=== PATIENT | female | born 1955 | race Caucasian/White ===

== ENCOUNTER 2019-09-08 16:33 | Emergency (ER) | payer BC, OTHER ==
[2019-09-08] MEDS ORDERED: LEVALBUTEROL 1.25 MG/3 ML NEB ONE (17:23)
[2019-09-08 17:55] LABS: Absolute Lymphocytes (CBC) 2.1 K/uL (0.7-4.9); Basophils % 0.2 % (0-1.3); Hematocrit 33.8 % (36.0-45.0); Lymphocytes % 21.4 % (15.3-44.8); MPV 10.2 fL (7.6-11.3); RBC Red Blood Cell Count 3.69 M/uL (3.86-4.86)
[2019-09-08 17:59] LABS: Protime INR 0.95
--- NOTE | 2019-09-08 18:06 | RAD REPORT ---
EXAM DESCRIPTION: RAD - Chest Single View - 09/08/2019 5:58 pm CLINICAL HISTORY: CONGESTION Chest pain. COMPARISON: Chest Single View dated 11/24/2017; CHEST SINGLE VIEW dated 11/11/2014; CHEST SINGLE VIE W dated 11/10/2014 FINDINGS: Portable technique limits examination quality. The lungs are grossly clear. The heart is normal in size. No displaced fractures. IMPRESSION: No acute intrathoracic process suspected.
[2019-09-08 18:18] LABS: Bilirubin Direct 0.2 mg/dL (0-0.2); Bilirubin Total 0.6 mg/dL (0.2-1.0); CKMB Creatine Kinase MB 1.9 ng/mL (0.3-3.6); Magnesium 1.9 mg/dL (1.8-2.4); Potassium 3.3 mmol/L (3.5-5.1); Protein, Total 5.8 g/dL (6.4-8.2)
[2019-09-08 18:30] LABS: Blood Morphology Comment NOT SEEN (NOT SEEN); Platelet Estimate DECR; Urine White Blood Cell Casts OK
[2019-09-08] MEDS ORDERED: POTASSIUM CL SA 10 MEQ TAB PO ONE (18:42)
[2019-09-08] MEDS ORDERED: POTASSIUM 25 MEQ EFFERV TAB ONE (18:45)
--- NOTE | 2019-09-08 19:06 | ER ---
Nurse's Notes [facility] Name: Irena Jones Age: 64 yrs Sex: Female : 1955 Arrival Date: 09/08/2019 Time: 16:35 Bed 19 Private MD: Diagnosis: Shortness of breath Presentation: 09/08 10:14 Presenting complaint: Patient states: PERSISTENT COUGH AND LOSS OF APPETITE. Transition ss of care: patient was not received from another setting of care. Onset of symptoms is unknown. Risk Assessment: Do you want to hurt yourself or someone else? Patient reports no desire to harm self or others. Initial Sepsis Screen: Does the patient meet any 2 criteria? No. Patient's initial sepsis screen is negative. Does the patient have a suspected source of infection? No. Patient's initial sepsis screen is negative. Care prior to arrival: None. 10:14 Method Of Arrival: Ambulatory ss 10:14 Acuity: MARCELLUS 3 ss Historical: - Allergies: 16:48 PENICILLINS; ss - Home Meds: 16:48 venlafaxine 150 mg oral cp24 1 cap once daily [Active]; potassium chloride 8 mEq oral ss cpER 1 cap once daily [Active]; irbesartan 300 mg oral tab 1 tab once daily [Active]; aspirin 81 mg Oral chew once daily [Active]; - PMHx: 16:48 Hypertension; Pneumonia; ss - Immunization history:: Adult Immunizations up to date. - Social history:: Smoking status: Patient uses tobacco products, smokes one pack cigarettes per day. Patient/guardian denies using alcohol, street drugs, The patient lives with family. - Ebola Screening: : No symptoms or risks identified at this time. - Family history:: not pertinent. Screenin:15 Abuse screen: Denies threats or abuse. Denies injuries from another. Nutritional sg screening: No deficits noted. Tuberculosis screening: No symptoms or risk factors identified. Never had TB. Fall Risk None identified. Assessment: 17:15 General: Appears in no apparent distress. slender, well groomed, well developed, well sg nourished, Behavior is calm, cooperative, appropriate for age. Pain: Denies pain. Neuro: Level of Consciousness is awake, alert, obeys commands, Oriented to person, place, time, situation, Safety Council Director are equal bilaterally Moves all extremities. Full function Gait is steady, Speech is normal, Facial symmetry appears normal. Cardiovascular: Capillary refill is brisk in bilateral fingers Patient's skin is warm and dry. Chest pain is denied. Respiratory: Airway is patent Respiratory effort is even, unlabored, Respiratory pattern is regular, symmetrical. Respiratory: Reports pain with cough pain with respiration Breath sounds are coarse. GI: No signs and/or symptoms were reported involving the gastrointestinal system. : No signs and/or symptoms were reported regarding the genitourinary system. EENT: No signs and/or symptoms were reported regarding the EENT system. Derm: Skin is pink, warm \T\ dry. Musculoskeletal: Circulation, motion, and sensation intact. Range of motion: intact in all extremities. 19:31 Reassessment: Patient appears in no apparent distress at this time. No changes from previously documented assessment. Patient and/or family updated on plan of care and expected duration. Pain level reassessed. Patient is alert, oriented x 3, equal unlabored respirations, skin warm/dry/pink. Vital Signs: 16:48 BP 117 / 67; Pulse 94; Resp 18; Temp 98.4; Pulse Ox 99% ; Weight 54.43 kg; Height 5 ft. ss 5 in. (165.10 cm); 19:32 BP 116 / 66; Pulse 77; Resp 18; Temp 98; Pulse Ox 99% ; wh 16:48 Body Mass Index 19.97 (54.43 kg, 165.10 cm) ED Course: 16:35 Patient arrived in ED. as 16:48 Arm band placed on. 16:50 Triage completed. 16:50 Patient has correct armband on for positive identification. Placed in gown. Bed in low sg position. Call light in reach. Side rails up X2. hall monitor on. Pulse ox on. NIBP on. Warm blanket given. Head of bed elevated. 17:06 Mathew Marlow RN is Primary Nurse. sg 17:11 Dereck Chirinos MD is Attending Physician. ma2 17:15 Initial lab(s) drawn, by mo, sent to lab. First set of blood cultures drawn. Inserted sg saline lock: 22 gauge in right antecubital area, using aseptic technique. Blood collected. 17:30 Second set of blood cultures drawn by me. sg 17:43 EKG done, by medical laboratory technologist. reviewed by Dereck Chirinos MD. 3 17:58 XRAY CXR (1 view) In Process Unspecified. EDMS 18:56 Report given to Meena MONSIVAIS. 19:23 Meena Shen is Primary Nurse. 19:31 No provider procedures requiring assistance completed. IV discontinued, intact, bleeding controlled, No redness/swelling at site. Administered Medications: 17:41 Drug: Xopenex 1.25 mg Route: Inhalation; sg 19:34 Follow up: Response: No adverse reaction 18:50 Drug: Klor-Con Effervescent Tablet 25 mEq Route: PO; sg 19:34 Follow up: Response: No adverse reaction Outcome: 19:05 Discharge ordered by . shanel 19:32 Discharged to home ambulatory, with family. 19:32 Condition: good 19:32 Discharge instructions given to patient, family, Instructed on discharge instructions, follow up and referral plans. POC shortness of breath Demonstrated understanding of instructions, follow-up care, POC 19:35 Patient left the ED. Signatures: Dispatcher [employer] EDMS Mathew Marlow, RN RN Anna Darnell Shelby, LOI MONSIVAIS Meena Shen Dereck Chirinos MD MD ma2 Montes, Shakira 3 Corrections: (The following items were deleted from the chart) 19:34 19:32 Pulse 77bpm; Resp 18bpm; Pulse Ox 99%; Temp 98F; [facility]
--- NOTE | 2019-09-08 19:06 | EDPHYS ---
Physician Documentation [facility] Name: Irena Jones Age: 64 yrs Sex: Female : 1955 Arrival Date: 09/08/2019 Time: 16:35 Bed 19 Private MD: ED Physician Dereck Chirinos HPI: 09/08 18:30 This 64 yrs old Female presents to ER via Ambulatory with complaints of ma2 Bronchitis. 18:30 Onset: The symptoms/episode began/occurred gradually, 1 week(s) ago. Severity of ma2 symptoms: At their worst the symptoms were mild, in the emergency department the symptoms are unchanged. Associated signs and symptoms: Pertinent positives: sore throat, sob, this patient has no pertinent positive symptoms Pertinent negatives: diarrhea, nausea, sore throat. The patient has not experienced similar symptoms in the past. Historical: - Allergies: 16:48 PENICILLINS; ss - Home Meds: 16:48 venlafaxine 150 mg oral cp24 1 cap once daily [Active]; potassium chloride 8 mEq oral ss cpER 1 cap once daily [Active]; irbesartan 300 mg oral tab 1 tab once daily [Active]; aspirin 81 mg Oral chew once daily [Active]; - PMHx: 16:48 Hypertension; Pneumonia; ss - Immunization history:: Adult Immunizations up to date. - Social history:: Smoking status: Patient uses tobacco products, smokes one pack cigarettes per day. Patient/guardian denies using alcohol, street drugs, The patient lives with family. - Ebola Screening: : No symptoms or risks identified at this time. - Family history:: not pertinent. ROS: 18:30 Constitutional: Negative for fever, chills, and weight loss. ma2 18:30 All other systems are negative. Exam: 18:30 Constitutional: This is a well developed, well nourished patient who is awake, alert, ma2 and in no acute distress. Head/Face: Normocephalic, atraumatic. Eyes: Pupils equal round and reactive to light, extra-ocular motions intact. Lids and lashes normal. Conjunctiva and sclera are non-icteric and not injected. Cornea within normal limits. Periorbital areas with no swelling, redness, or edema. ENT: Nares patent. No nasal discharge, no septal abnormalities noted. Tympanic membranes are normal and external auditory canals are clear. Oropharynx with no redness, swelling, or masses, exudates, or evidence of obstruction, uvula midline. Mucous membranes moist. Neck: Trachea midline, no thyromegaly or masses palpated, and no cervical lymphadenopathy. Supple, full range of motion without nuchal rigidity, or vertebral point tenderness. No Meningismus. Chest/axilla: Normal chest wall appearance and motion. Nontender with no deformity. No lesions are appreciated. Cardiovascular: Regular rate and rhythm with a normal S1 and S2. No gallops, murmurs, or rubs. Normal PMI, no JVD. No pulse deficits. Respiratory: Lungs have equal breath sounds bilaterally, clear to auscultation and percussion. No rales, rhonchi or wheezes noted. No increased work of breathing, no retractions or nasal flaring. Abdomen/GI: Soft, non-tender, with normal bowel sounds. No distension or tympany. No guarding or rebound. No evidence of tenderness throughout. Skin: Warm, dry with normal turgor. Normal color with no rashes, no lesions, and no evidence of cellulitis. MS/ Extremity: Pulses equal, no cyanosis. Neurovascular intact. Full, normal range of motion. Neuro: Awake and alert, GCS 15, oriented to person, place, time, and situation. Cranial nerves II-XII grossly intact. Motor strength 5/5 in all extremities. Sensory grossly intact. Cerebellar exam normal. Normal gait. Vital Signs: 16:48 BP 117 / 67; Pulse 94; Resp 18; Temp 98.4; Pulse Ox 99% ; Weight 54.43 kg; Height 5 ft. ss 5 in. (165.10 cm); 19:32 BP 116 / 66; Pulse 77; Resp 18; Temp 98; Pulse Ox 99% ; wh 16:48 Body Mass Index 19.97 (54.43 kg, 165.10 cm) MDM: 17:11 Patient medically screened. [facility] 18:30 Differential Diagnosis: Bronchitis Influenza Upper Respiratory Infection Sinusitis ma2 Pharyngitis. 19:04 Data reviewed: vital signs, nurses notes. Counseling: I had a detailed discussion with ma2 the patient and/or guardian regarding: the historical points, exam findings, and any diagnostic results supporting the discharge/admit diagnosis, the presence of at least one elevated blood pressure reading (>120/80) during this emergency department visit, the need for outpatient follow up. ED course: she had 3 antibiotics courses, no infection could be copd, she needs pulmonary physician and will see one in 2 days . 09/08 17:12 Order name: Blood Culture Adult (2) dc2 09/08 17:12 Order name: BMP; Complete Time: 18:27 ma2 09/08 17:12 Order name: CBC with Diff ma2 09/08 17:12 Order name: Ckmb; Complete Time: 18:27 ma2 09/08 17:12 Order name: CPK; Complete Time: 18:27 ma2 09/08 17:12 Order name: D-Dimer; Complete Time: 18:13 ma2 09/08 17:12 Order name: Hepatic Function; Complete Time: 18:27 ma2 09/08 17:12 Order name: Lipase; Complete Time: 18:27 ma2 09/08 17:12 Order name: Magnesium; Complete Time: 18:27 dc2 09/08 17:12 Order name: NT PRO-BNP; Complete Time: 18:27 ma2 09/08 17:12 Order name: PT-INR; Complete Time: 18:13 ma2 09/08 17:12 Order name: Ptt, Activated; Complete Time: 18:13 ma2 09/08 17:12 Order name: Troponin (emerg Dept Use Only); Complete Time: 18:13 ma2 09/08 18:30 Order name: CBC Smear Scan; Complete Time: 18:32 EDMS 09/08 17:12 Order name: XRAY CXR (1 view); Complete Time: 18:13 ma2 09/08 17:12 Order name: EKG; Complete Time: 17:13 ma2 09/08 17:12 Order name: Cardiac monitoring; Complete Time: 17:19 ma2 09/08 17:12 Order name: EKG - Nurse/Tech; Complete Time: 17:41 ma2 09/08 17:12 Order name: IV Saline Lock; Complete Time: 17:19 ma2 09/08 17:12 Order name: Labs collected and sent; Complete Time: 17:18 ma2 09/08 17:12 Order name: O2 Per Protocol; Complete Time: 17:19 ma2 09/08 17:12 Order name: O2 Sat Monitoring; Complete Time: 17:19 ma2 Administered Medications: 17:41 Drug: Xopenex 1.25 mg Route: Inhalation; sg 19:34 Follow up: Response: No adverse reaction 18:50 Drug: Klor-Con Effervescent Tablet 25 mEq Route: PO; sg 19:34 Follow up: Response: No adverse reaction Disposition: 09/08/19 19:05 Discharged to Home. Impression: Shortness of breath. - Condition is Stable. - Discharge Instructions: Shortness of Breath, Zeoc-[id number]. - Medication Reconciliation Form, Thank You Letter, Antibiotic Education, Prescription Opioid Use form. - Follow up: Private Physician; When: Tomorrow; Reason: Continuance of care. Signatures: Dispatcher [employer] EDMathew Velazquez RN RN sg Smirch, Shelby, RN RN ss Habalo, Winsy Taran, MD ELLIE Harden ma2 Corrections: (The following items were deleted from the chart) 19:35 19:05 09/08/2019 19:05 Discharged to Home. Impression: Shortness of breath. Condition wh is Stable. Forms are Medication Reconciliation Form, Thank You Letter, Antibiotic Education, Prescription Opioid Use. Follow up: Private Physician; When: Tomorrow; Reason: Continuance of care. ma2
[2019-09-08 19:48] VITALS: O2SAT 99
[2019-09-08 19:49] VITALS: BP 116/66; TEMP 98
--- NOTE | 2019-09-09 05:31 | EKG ---
Test Date: 2019-09-08 Test Time: 17:31:55 Head Of It: JAMAL MEASUREMENT RESULTS: Intervals: Rate: 79 VT: 144 QRSD: 72 QT: 394 QTc: 451 Parmele: P: 69 VT: 144 QRS: 47 T: 70 INTERPRETIVE STATEMENTS: Normal sinus rhythm Nonspecific ST abnormality Abnormal ECG Compared to ECG 09/10/2018 12:17:50 ST (T wave) deviation now present Electronically Signed On 09-09-19 05:31:19 CDT by Oscar Hardin
== END 2019-09-08 19:35 | disposition home or self-care (01) ==
LOC: ER 16:33
DX: R06.02 Shortness of breath (principal); F17.210 Nicotine dependence, cigarettes, uncomplicated; Z88.0 Allergy status to penicillin
CPT/HCPCS: 36415; 71045; 80048; 80076; 82550; 82553; 83690; 83735; 83880; 84484; 85025; 85379; 85610; 85730; 87040; 93005; 99285

== ENCOUNTER 2021-03-22 19:12 | Emergency (ER) | payer OTHER, SELFPAY ==
--- OUTSIDE RECORDS SUMMARY | 2021-03-22 19:14 | XMS REPORT | Continuity of Care Document ---
:1955 Author Organization [facility] t Address [address] [place] [address] Care Team Providers Name Role Phone Virgilio Perkins MD Primary Care Physician Carline ARGUETA, Eric Attending Clinician Valerie ARGUETA, P. Attending Clinician Brianda ARGUETA, A. Attending Clinician Makeda ARGUETA, A. Attending Clinician DR BRODIE Attending Clinician Unavailable JANEEN Attending Clinician Unavailable RAS Attending Clinician Unavailable Moira PERKINS Attending Clinician Unavailable DR BRODIE Admitting Clinician Unavailable Moira PERKINS Admitting Clinician Unavailable Payers Payer Name Policy Type Policy Effective Date Expiration Date Sour ce Number AETNA MEDICAREAETNA [id number] 2019 [place] H[place]/PPO 0 00:00:00 Methodis t [id number]/ 2020-PresentHMO Problems Condition Condition Condition Status Onset Resolution Last Treating Co mments Source Name Details Category Date Date Treatment Clinician Date Contusion 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, of hip, HL7.CCDAR2 ity of left left [place] [facility] Hypertensi Hypertensi Problem Active U nivers on on HL7.CCDAR2 ity of [place] [facility] Allergies, Adverse Reactions, Alerts Allergy Allergy Status Severity Reaction(s) Onset Inactive Treating Comm ents Source Name Type Date Date Clinician Latex Propensi Active Skin Jimenez ty to 913 irritatio Methodi adverse 00:00: n st reaction 00 s to drug Other Propensi Active Adhesives [place] ty to 08-08 , tape Methodi adverse 00:00: st reaction 00 s Penicill Propensi Active hives [place] ins ty to 08-08 Methodi adverse 00:00: st reaction 00 s to drug Penicill drug Active Univers ins allergy [facility] Phys[facility] ans Family History Family Member Diagnosis Comments Start Date Stop Date Source Mother Adopted [facility] Father Adopted [facility] Social History Social Habit Start Date Stop Date Quantity Comments Source History of tobacco Cigarette Smoker [place] use Yarsanism Exposure to Not sure [place] SARS-CoV-2 (event) Method ist Cigarettes smoked 2021-03-22 2021-03-22 [place] current (pack per 00:00:00 00:00:[address] day) - Reported Tobacco use and 2021-03-22 2021-03-22 Never used [place] exposure 00:00:00 00:00:00 Yarsanism Alcohol intake 2021-03-22 2021-03-22 Ex-drinker [place] 00:00:00 00:00:00 (finding) Yarsanism Sex Ass[birth year] At [birth year] F [place] 00:00:00 00:00:00 Yarsanism Smoking Status Start Date Stop Date Source Current every day smoker 2021-03-22 00:00:00 Syed woody Yarsanism Medications Ordered Filled Start Stop Current Ordering Indication Dosage Frequency Signature Comments Components Source Medication Medication Date Date Medication? Clinician (SIG) Name Name losartan Yes TAKE 1 Tony (COZAAR) 4-16 TABLET Methodi 100 MG 00:00: (100 MG) st tablet 00 BY MOUTH DAILY meloxicam 2020- No 15mg QD Take 1 [place] (Mobic) 15 08-09 10-14 tablet (15 Me thodi mg tablet 00:00: 23:59 mg total) st 00 :00 by mouth daily for 30 days. methylPREDN 2020- No 4mg Take 1 Syed woody ISolone 08-09-19 tablet (4 Method i (MEDROL 00:00: 23:59 mg total) st DOSEPAK) 4 00 :00 by mouth mg tablet See Admin Instructio ns for 5 days. Use as directed by package instructio lani irbesartan Yes 300mg QD Take 300 [place] (AVAPRO) 7-13 mg by Methodi 300 MG 00:00: mouth st tablet 00 daily. KLOR-CON 8 Yes 8meq QD Take 8 mEq [place] 8 mEq CR 7-13 by mouth Methodi tablet 00:00: daily. st 00 venlafaxine Yes 150mg QD Take 150 [place] XR 7-13 mg by Methodi (EFFEXOR-XR 00:00: mouth st ) 150 MG 24 00 daily. hr capsule Klor-Con 8 Klor-Con 8 Yes Uni vers MEQ Oral MEQ Oral ity of Tablet Tablet [place] Extended Extended Physici Release Release ans Irbesartan Irbesartan Yes Uni vers 300 MG Oral 300 MG Oral i ty of Tablet Tablet [place] [facility] Venlafaxine Venlafaxine Yes U nivers HCl ER 150 HCl ER 150 ity of MG Oral MG Oral [place] Capsule Capsule Physici Extended Extended ans Release 24 Release 24 Hour Hour Aspirin 81 Aspirin 81 Yes Uni vers MG TABS MG TABS ity of [place] [facility] Immunizations Ordered Immunization Filled Immunization Date Status Commen ts Source Name Name Football Meister COVID-19 MRNA 2021-02-28 Completed [place] VACCINATION 00:00:00 Y[facility]an[place] PFIZER COVID-19 MRNA 2021-02-04 Completed [place] VACCINATION 00:00:00 Yarsanism Vital Signs Vital Name Observation Time Observation Value Comments Source Body height 2021-03-22 13:25:00 165.1 cm Tony Painter Body weight 2021-03-22 13:25:00 61.236 kg Tony Painter BMI 2021-03-22 13:25:00 22.47 kg/m2 Tony Painter BP Systolic 2018-04-03 14:00:00 107 mm[Hg] [facility] BP Diastolic 2018-04-03 14:00:00 60 mm[Hg] [facility] Height 2018-04-03 14:00:00 65 [in_us] [facility] Weight 2018-04-03 14:00:00 142 [lb_av] [facility] Body Mass Index 2018-04-03 14:00:00 23.63 kg/m2 [facility] Calculated Physicians Heart Rate 2018-04-03 14:00:00 67 /min [facility] BP Systolic 2018-02-27 15:54:00 122 mm[Hg] [facility] BP Diastolic 2018-02-27 15:54:00 64 mm[Hg] [facility] Height 2018-02-27 15:54:00 65 [in_us] [facility] Weight 2018-02-27 15:54:00 142 [lb_av] [facility] Body Mass Index 2018-02-27 15:54:00 23.63 kg/m2 [facility] Calculated Physicians Heart Rate 2018-02-27 15:54:00 82 /min [facility] Procedures Procedure Date / Time Performing Clinician Source Performed XR PELVIS 1 OR 2 VW 2020-08-09 15:11:32 Mike Shultz [U] XRAY HIP UNILATERAL 2018-02-19 00:00:00 [facility] MIN 2 VWS LEFT [id number] Physicians History of Hip [facility] xa replacement Physicians Plan of Care Planned Activity Planned Date Details Comments Source Future Scheduled 2021-06-26 INFLUENZA VACCINE [place] Y[facility]anism Test 00:00:00 [code = INFLUENZA VACCINE] Future Scheduled 2003 BREAST CANCER [facility] thodist Test 00:00:00 SCREENING [code = BREAST CANCER SCREENING] Future Scheduled 2003 COLONOSCOPY SCREENING Ho manpreet Yarsanism Test 00:00:00 [code = COLONOSCOPY SCREENING] Future Scheduled 2003 SHINGLES VACCINES (#1) H ouannalise Yarsanism Test 00:00:00 [code = SHINGLES VACCINES (#1)] Future Scheduled 1971 Hepatitis C screening [place] Yarsanism Test 00:00:00 (procedure) [code = 766530460] Future Scheduled 1959 65+ PNEUMOCOCCAL Tony Yarsanism Test 00:00:00 VACCINE (1 of 2 - PPSV23) [code = 65+ PNEUMOCOCCAL VACCINE (1 of 2 - PPSV23)] Encounters Start End Encounter Admission Attending Care Care Encounter Source Date/Time Date/Time Type Type Clinicians Facility Department ID 2021-03-22 2021-03-22 Outpatient [facility] [id number] [place] 00:00:00 00:00:[address] 2021-02-28 2021-02-28 Outpatient VALERIE [facility] [id number] [place] 00:00:00 00:00:00 [place] [address] 2021-02-04 2021-02-04 Outpatient [facility] [id number] [place] 00:00:00 00:00:[address] 2020-08-09 2020-08-09 Outpatient MIKE SHULTZ [facility] [id number] [place] 00:00:00 00:00:[address] 2020-08-09 2020-08-09 Outpatient MIKE SHULTZ [facility] [id number] [place] 00:00:00 00:00:[address] 2018-09-20 2018-09-20 Outpatient C BRODIE, [facility] [id number] [place] 04:27:00 06:40:00 [facility] 2018-03-21 2018-03-21 Appointmen DON VERNON [facility] [id number] Univers 14:00:00 14:00:00 t; KARISHMA VERNON M.D. [facility] [place] ans 2018-02-19 2018-02-19 Appointmen DON VERNON [facility] [id number] Univers 13:00:00 13:00:00 t; KARISHMA VERNON M.D. [facility], [facility] [place] ans 2016-08-23 2016-08-23 Appointmen DON MCGINNIS [facility] [id number] Univers 15:15:00 15:15:00 t; AGUSTIN MCGINNIS o f AGUSTIN [place] [facility] ans 2016-06-21 2016-06-21 Outpatient C LUDWIN, [facility] USI [place] [id number] [place] 09:51:00 23:59:00 [facility] Results Test Description Test Time Test Comments Results Result Sour e Comments [U] XRAY HIP 2018-02-19 Images University o f UNILATERAL MIN 2 13:33:00 acquired, not [place] [facility] LEFT [id number] reported on Physician s this accession number.
--- NOTE | 2021-03-22 19:31 | RAD REPORT ---
EXAM DESCRIPTION: CT - Ct Stroke Brain Wo Cont - 03/22/2021 7:22 pm CLINICAL HISTORY: Slurred speech COMPARISON: Previous exam was unavailable for comparison secondary to technical issues TECHNIQUE: Computed axial tomography of the head was obtained. All CT scans are performed using dose optimization technique as appropriate and may include automated exposure control or mA/KV adjustment according to patient size. FINDINGS: An intracranial bleed is not seen . The ventricles are normal in caliber. No extra-axial fluid collection is noted. Low-density areas within the right occipital and right parietal lobes have the appearance of old infa rction. Mild to moderate low-density within periventricular, deep and subcortical white matter likely ischemi c changes secondary to small vessel disease Fluid within the sinuses/ mastoids is not seen. IMPRESSION: No acute intracranial abnormality is seen. If patient's symptoms persist MRI of the bra in would be recommended. Dr Rojas of the emergency room was notified at 7:25 p.m. March 22, 2021
[2021-03-22 19:41] LABS: Absolute Lymphocytes (CBC) 2.6 K/uL (0.7-4.9); Basophils % 0.8 % (0-1.3); Hematocrit 33.1 % (36.0-45.0); Lymphocytes % 36.7 % (15.3-44.8); MPV 10.1 fL (7.6-11.3); RBC Red Blood Cell Count 3.61 M/uL (3.86-4.86)
[2021-03-22] MEDS ORDERED: ALTEPLASE 100 ML IV ONE (19:49)
[2021-03-22] MEDS ORDERED: NA CHLORIDE 0.9% 0 ML ONE (19:49)
[2021-03-22] MEDS ORDERED: LABETALOL 20 MG/4ML SYRINGE IV ONE (19:53)
[2021-03-22 19:57] LABS: BUN Blood Urea Nitrogen 11 mg/dL (7-18); Bicarbonate 27 mmol/L (21-32); Glucose Level 94 mg/dL (74-106); Magnesium 1.8 mg/dL (1.8-2.4); Potassium 3.8 mmol/L (3.5-5.1); Sodium Level 136 mmol/L (136-145); Troponin (Emerg Dept Use Only) < 0.02 ng/mL (0.0-0.045)
[2021-03-22 20:03] LABS: Protime INR 0.97
--- NOTE | 2021-03-22 20:19 | RAD REPORT ---
EXAM DESCRIPTION: Isra Single View03/22/2021 8:05 pm CLINICAL HISTORY: Weakness/hypertension COMPARISON: 2018 FINDINGS: Calcific density within the proximal left humerus probably infarct or enchondroma. Lungs appear clear of acute infiltrate. The heart is mildly enlarged. Aorta is tortuous/ectatic IMPRESSION: No acute abnormalities displayed
--- NOTE | 2021-03-22 20:37 | EDPHYS ---
Physician Documentation [facility] Name: Irena Jones Age: 65 yrs Sex: Female : 1955 Arrival Date: 03/22/2021 Time: 19:13 Bed 16 Private MD: ED Physician Daniel Rojas HPI: 03/22 19:17 This 65 yrs old Female presents to ER via Unassigned with complaints of right rn sided weakness, slurred speech. 19:17 The patient presents to the emergency department with weakness of the right upper rn extremity, right lower extremity, left side of the face, that is mild, a speech or higher order brain function problem. Onset: The symptoms/episode began/occurred 30 minute(s) ago. Context: occurred while the patient was at rest. Associated signs and symptoms: Pertinent positives: weakness, Pertinent negatives: altered mental status, fever, headache, neck stiffness, seizure, syncope, blurred vision, double vision, visual field changes, loss of vision. Severity of symptoms: At their worst the symptoms were moderate in the emergency department the symptoms are unchanged. Current symptoms: paralysis or paresis. The patient has not experienced similar symptoms in the past. The patient has not recently seen a physician. Reports sudden onset right sided weakness and slurred speech, began 30 min prior to arrival. No trauma. Reports feels like leaning towards left. Has never happened before, no hx of stroke. . Historical: - Allergies: 19:53 PENICILLINS; iw - Home Meds: 19:53 losartan 100 mg oral tab 1 tab once daily [Active]; venlafaxine 37.5 mg oral tab iw [Active]; - PMHx: 19:53 Hypertension; Pneumonia; iw - PSHx: 19:53 left hip; Appendectomy; iw - Immunization history:: Adult Immunizations up to date, Client reports receiving the 2nd dose of the Covid vaccine. - Social history:: Smoking status: Patient reports the use of cigarette tobacco products, smokes one pack cigarettes per day. - Family history:: not pertinent. - Hospitalizations: : No recent hospitalization is reported. ROS: 19:17 Constitutional: Negative for fever, chills, and weight loss, Eyes: Negative for injury, rn pain, redness, and discharge, Neck: Negative for injury, pain, and swelling, Cardiovascular: Negative for chest pain, palpitations, and edema, Respiratory: Negative for shortness of breath, cough, wheezing, and pleuritic chest pain, Abdomen/GI: Negative for abdominal pain, nausea, vomiting, diarrhea, and constipation, Back: Negative for injury and pain, MS/Extremity: Negative for injury and deformity, Skin: Negative for injury, rash, and discoloration, Neuro: + right sided weakness and slurred speech 19:17 All other systems are negative. Exam: 19:17 Constitutional: This is a well developed, well nourished patient who is awake, alert, rn and in no acute distress. Head/Face: Normocephalic, atraumatic. Eyes: Pupils equal round and reactive to light, extra-ocular motions intact. Cardiovascular: Regular rate and rhythm. No pulse deficits. Respiratory: No increased work of breathing, no retractions or nasal flaring. Abdomen/GI: soft, non-tender, no masses Skin: Warm, dry MS/ Extremity: Pulses equal, no cyanosis. Neuro: Awake and alert, GCS 15, oriented to person, place, time, and situation. + left lower facial droop, forehead sparing, + RUE and RLE weakness with drift, RUE weaker than RLE, + mild slurred speech. Gait not tested. Sensatin grossly intact. 20:11 ECG was reviewed by the Attending Physician. rn Vital Signs: 19:13 Temp 98.1(O); jb4 19:41 Weight 60 kg; iw 20:15 BP 160 / 86; Pulse 72; Resp 20; Pulse Ox 93% on R/A; mw2 21:15 BP 170 / 95; Pulse 73; Resp 21; Pulse Ox 94% on R/A; jb4 NIH Stroke Scale Scores: 19:15 NIHSS Score: 5 jb4 19:16 NIHSS Score: 5 rn MDM: 19:14 Patient medically screened. rn 19:25 ED course: Dr. Rasmussen reads ct head without acute findings. . rn 19:37 ED course: BP 195 systolic, 5mg labetalol IV given, BP down to 169 systolic prior to rn TPA being given. Pt consented and explained all risks/benefits, in room at the time as well. . 20:34 Data reviewed: vital signs, nurses notes, lab test result(s), EKG, radiologic studies, rn CT scan, and as a result, I will admit patient. Counseling: I had a detailed discussion with the patient and/or guardian regarding: the historical points, exam findings, and any diagnostic results supporting the discharge/admit diagnosis, lab results, radiology results, the need to transfer to another facility, for higher level of care, [facility] does not immediately have the required specialist. Response to treatment: There is no appreciated change of the patient's symptoms at this time, and as a result, I will admit patient. ED course: Accepted for transfer to [facility] neuro ICU. Actually just showed some improvement during TPA, moving RUE more now.. 03/22 19:16 Order name: Magnesium 03/22 19:16 Order name: Troponin (emerg Dept Use Only) 03/22 19:16 Order name: Basic Metabolic Panel 03/22 19:16 Order name: CBC with Diff; Complete Time: 20:28 03/22 19:16 Order name: Protime (+inr); Complete Time: 20: 03/22 19:16 Order name: Ptt, Activated; Complete Time: 20: 03/22 19:16 Order name: CT Stroke Brain w/o Contrast; Complete Time: 20: 03/22 19:16 Order name: Stroke CXR 1 View; Complete Time: 20: 03/22 19:16 Order name: Magnesium; Complete Time: 20:28 EDOR 03/22 19:16 Order name: Troponin (Emerg Dept Use Only); Complete Time: 20:28 [facility] 03/22 19:16 Order name: Basic Metabolic Panel; Complete Time: 20: [facility] 03/22 19:41 Order name: Glucose, Ancillary Testing; Complete Time: 20:28 [facility] 03/22 19:16 Order name: EKG; Complete Time: 19:16 03/22 19:16 Order name: Accucheck; Complete Time: 20:01 03/22 19:16 Order name: Cardiac monitoring; Complete Time: 19:41 03/22 19:16 Order name: EKG - Nurse/Tech; Complete Time: 19:42 03/22 19:16 Order name: IV Saline Lock; Complete Time: 19:42 03/22 19:16 Order name: Labs collected and sent; Complete Time: 19:42 rn 04/27 19:16 Order name: NPO; Complete Time: 19:42 rn 03/22 19:16 Order name: O2 Per Protocol; Complete Time: 19:42 rn 03/22 19:16 Order name: O2 Sat Monitoring; Complete Time: 19:42 rn 03/22 19:16 Order name: Stroke Swallow Screen; Complete Time: 20:27 rn EC:11 Rate is 83 beats/min. Rhythm is regular. QRS [place] is Normal. [place] interval is normal. QRS rn interval is normal. QT interval is normal. No Q waves. T waves are Normal. No ST changes noted. Clinical impression: NSR w/ Non-specific ST/T Changes. Interpreted by me. Reviewed by me. Administered Medications: 19:30 Drug: Labetalol 5 mg {Note: Administered by LOI Segovia.} Route: IVP; Site: left jb4 antecubital; 20:00 Follow up: Response: No adverse reaction; Blood pressure is lowered jb4 19:40 Drug: ACTIvase (alteplase) {Co-Signature: rr5 (Glenn Barrios RN).} Route: IV jb4 Thrombolytics; Rate: calculated rate; Infused Over: 60 mins; 20:40 Follow up: Response: No adverse reaction; Marked relief of symptoms jb4 20:40 Drug: foLIC Acid 1 mg Route: IVPB; Site: right forearm; jb4 21:10 Follow up: Response: No adverse reaction; IV Status: Completed infusion jb4 Disposition: 03/22/21 20:37 Transfer ordered to [facility]. Diagnosis are Weakness, Slurred speech, Cerebral infarction. - Reason for transfer: Higher level of care. - Accepting physician is . - Condition is Stable. - Problem is new. - Symptoms have improved. Critical care time excluding procedures: 20:34 Critical care time: Bedside Care: 25 minutes, Consultation: 5 minutes. Total time: 30 rn minutes NIH Stroke Scale - NIH Stroke Score Date: 03/22/2021 Time: 19:15 Total Score = 5 1a. Level of Consciousness (LOC) - 0(Alert) 1b. Level of Consciousness (LOC) (Year \T\ Age) - 0(Both) 1c. LOC Commands (Open \T\ Closes Eyes/Pipelaying Fitter) - 0(Both) 2. Best Gaze (Lateral Gaze Paresis) - 0(Normal) 3. Visual Field Loss - 0(No visual loss) 4. Facial Palsy - 2(Partial paralysis) 5a. Left Arm: Motor (10-second hold) - 0(No drift) 5b. Right Arm: Motor (10-second hold) - 1(Drift) 6a. Left Leg: Motor (5-second hold - always test supine) - 0(No drift) 6b. Right Leg: Motor (5-second hold - always test supine) - 1(Drift) 7. Limb Ataxia (finger/nose \T\ heel/mayfield - test with eyes open) - 0(Absent) 8. Sensory Loss (pinprick arms/legs/face) - 0(Normal) 9. Best Language: Aphasia (description/naming/reading) - 0(No aphasia) 10. Dysarthria (speech clarity - read or repeat words) - 1(Mild to Moderate) 11. Extinction and Inattention (visual/tactile/auditory/spatial/personal) - 0(No abnormality) Initials: jb4 NIH Stroke Scale - NIH Stroke Score Date: 03/22/2021 Time: 19:16 Total Score = 5 1a. Level of Consciousness (LOC) - 0(Alert) 1b. Level of Consciousness (LOC) (Year \T\ Age) - 0(Both) 1c. LOC Commands (Open \T\ Closes Eyes/Pipelaying Fitter) - 0(Both) 2. Best Gaze (Lateral Gaze Paresis) - 0(Normal) 3. Visual Field Loss - 0(No visual loss) 4. Facial Palsy - 2(Partial paralysis) 5a. Left Arm: Motor (10-second hold) - 0(No drift) 5b. Right Arm: Motor (10-second hold) - 1(Drift) 6a. Left Leg: Motor (5-second hold - always test supine) - 0(No drift) 6b. Right Leg: Motor (5-second hold - always test supine) - 1(Drift) 7. Limb Ataxia (finger/nose \T\ heel/mayfield - test with eyes open) - 0(Absent) 8. Sensory Loss (pinprick arms/legs/face) - 0(Normal) 9. Best Language: Aphasia (description/naming/reading) - 0(No aphasia) 10. Dysarthria (speech clarity - read or repeat words) - 1(Mild to Moderate) 11. Extinction and Inattention (visual/tactile/auditory/spatial/personal) - 0(No abnormality) Initials: rn Signatures: Dispatcher [employer] Juliette Mattson, LOI MONSIVAIS iw Daniel Rojas MD MD rn Bryson, James, RN RN jb4 Glenn Barrios RN rr5 Corrections: (The following items were deleted from the chart) 21:26 20:37 03/22/2021 20:37 Transfer ordered to [address] Diagnosis is Weakness; Slurred speech; Cerebral infarction. Reason for transfer: Higher level of care. Accepting physician is . Condition is Stable. Problem is new. Symptoms have improved. rn
--- NOTE | 2021-03-22 20:37 | ER ---
Nurse's Notes 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 Coronavirus screen: At this time, the client does not indicate any symptoms associated with coronavirus-19. Ebola Screen: Patient negative for fever greater than or equal to 101.5 degrees Fahrenheit, and additional compatible Ebola Virus Disease symptoms Patient denies exposure to infectious person. Patient denies travel to an Ebola-affected area in the 21 days before illness onset. No symptoms or risks identified at this time. Initial Sepsis Screen: Does the patient meet any 2 criteria? No. Patient's initial sepsis screen is negative. Does the patient have a suspected source of infection? No. Patient's initial sepsis screen is negative. Risk Assessment: Do you want to hurt yourself or someone else? Patient reports no desire to harm self or others. Onset of symptoms was March 22, 2021 at 18:30. 19:20 Method Of Arrival: Wheelchair iw 19:35 Acuity: MARCELLUS 2 iw Historical: - Allergies: 19:53 PENICILLINS; iw - Home Meds: 19:53 losartan 100 mg oral tab 1 tab once daily [Active]; venlafaxine 37.5 mg oral tab iw [Active]; - PMHx: 19:53 Hypertension; Pneumonia; iw - PSHx: 19:53 left hip; Appendectomy; iw - Immunization history:: Adult Immunizations up to date, Client reports receiving the 2nd dose of the Covid vaccine. - Social history:: Smoking status: Patient reports the use of cigarette tobacco products, smokes one pack cigarettes per day. - Family history:: not pertinent. - Hospitalizations: : No recent hospitalization is reported. Screenin:13 Abuse screen: Denies threats or abuse. Nutritional screening: No deficits noted. jb4 Tuberculosis screening: No symptoms or risk factors identified. Fall Risk None identified. Assessment: 19:13 General: Appears distressed, comfortable, Behavior is calm, cooperative. Pain: Denies jb4 pain. Neuro: Level of Consciousness is awake, alert, obeys commands, Oriented to person, place, time, situation, Wet Pan Operator are equal bilaterally Weakness in right arm(s) leg(s) Gait is unsteady, Speech is slurred, Facial droop on left, Pupils are PERRLA, Intact. Cardiovascular: Patient's skin is warm and dry. Rhythm is sinus rhythm. Respiratory: Airway is patent Respiratory effort is even, unlabored, Respiratory pattern is regular, symmetrical. GI: No signs and/or symptoms were reported involving the gastrointestinal system. : No signs and/or symptoms were reported regarding the genitourinary system. EENT: No signs and/or symptoms were reported regarding the EENT system. Derm: Skin is intact, Skin is pink, warm \T\ dry. Musculoskeletal: Circulation, motion, and sensation intact. Range of motion: intact in right arm, right leg. 19:20 Reassessment: Pt to Ct. jb4 19:25 T-PA (Activase) Screening: Indications: Definite evidence of stroke, ischemic, embolic, jb4 or hypertensive: Yes. Treatment will start within 4.5 hours onset of symptoms: Yes. No evidence of intracranial hemorrhage or CT of head and no evidence of peripheral hemorrhage or recent CVA: Yes. Consent for thrombolytic therapy: Yes. 20:00 The patient has not been NPO before screening. The patient is alert, and able to follow jb4 commands. The patient exhibits slurred or garbled speech. The patient is not exhibiting difficulty speaking. The patient does not exhibit difficulty understanding words. The patient is able to swallow own secretions with no drooling or need for suction. Patient tolerated one teaspoon of water. No drooling, immediate coughing, gurgling, or clearing of the throat was noted. The patient tolerated 90mL of water. No drooling, immediate coughing, gurgling, or clearing of the throat was noted. The patient passed the bedside swallow screening. Oral medications may be given as ordered. Contact Physician for further diet orders. Provider notified of bedside swallow screening results: Daniel Rojas MD. 20:25 Reassessment: Patient and/or family updated on plan of care and expected duration. Pain jb4 level reassessed. Patient is alert, oriented x 3, equal unlabored respirations, skin warm/dry/pink. Pt remains weak on the right side. The right arm is noticeably weaker then it was upon arrival. Provider notified. 21:22 Reassessment: Patient appears in no apparent distress at this time. Patient and/or jb4 family updated on plan of care and expected duration. Pain level reassessed. Patient is alert, oriented x 3, equal unlabored respirations, skin warm/dry/pink. Pt continues to have slurred speech and a slight droop on the left of her face when smiling. Pt can now move her right arm with full ROM and right leg with full ROM. Vital Signs: 19:13 Temp 98.1(O); jb4 19:41 Weight 60 kg; iw 20:15 BP 160 / 86; Pulse 72; Resp 20; Pulse Ox 93% on R/A; mw2 21:15 BP 170 / 95; Pulse 73; Resp 21; Pulse Ox 94% on R/A; jb4 NIH Stroke Scale Scores: 19:15 NIHSS Score: 5 jb4 19:16 NIHSS Score: 5 rn triage Course: 19:13 Patient arrived in ED. em 19:13 Patient has correct armband on for positive identification. Placed in gown. Bed in low jb4 position. Call light in reach. Side rails up X2. city supervisor on. Pulse ox on. NIBP on. 19:14 Daniel Rojas MD is Attending Physician. rn 19:21 CT Stroke Brain w/o Contrast In Process Unspecified. EDMS 19:25 Inserted saline lock: 18 gauge in right forearm, using aseptic technique. jb4 19:30 Inserted saline lock: 20 gauge in left forearm, using aseptic technique. rr5 19:34 EKG done, by ED staff, reviewed by Daniel Rojas MD. rr5 19:47 Brigido Barahona, RN is Primary Nurse. jb4 19:53 Arm band placed on. iw 19:57 Triage completed. iw 20:05 Stroke CXR 1 View In Process Unspecified. EDMS 20:28 initiated a transfer with Shoshana from [facility]. mw2 20:37 administrative approval given by Shoshana Berg/ patient has been accepted to [address] bed pending/ Dr. Wooten has accepted the patient in transfer. 20:42 patient is going to [facility] bed 7518/ report to be called to [phone]. [facility] 21:24 No provider procedures requiring assistance completed. Patient transferred, IV remains jb4 in place. Administered Medications: 19:30 Drug: Labetalol 5 mg {Note: Administered by LOI Segovia.} Route: IVP; Site: left jb4 antecubital; 20:00 Follow up: Response: No adverse reaction; Blood pressure is lowered jb4 19:40 Drug: ACTIvase (alteplase) {Co-Signature: rr5 (Glenn Barrios RN).} Route: IV jb4 Thrombolytics; Rate: calculated rate; Infused Over: 60 mins; 20:40 Follow up: Response: No adverse reaction; Marked relief of symptoms jb4 20:40 Drug: foLIC Acid 1 mg Route: IVPB; Site: right forearm; jb4 21:10 Follow up: Response: No adverse reaction; IV Status: Completed infusion jb4 Outcome: 20:37 ER care complete, transfer ordered by MD. lopez 21:24 Transferred by [facility]. to [facility], Transfer form completed. 4 X-rays sent w/ patient. 21:24 Condition: stable 21:24 Discharge instructions given to patient, family, Instructed on the need for transfer, Demonstrated understanding of instructions. 21:26 Patient left the ED. jb4 NIH Stroke Scale - NIH Stroke Score Date: 03/22/2021 Time: 19:15 Total Score = 5 1a. Level of Consciousness (LOC) - 0(Alert) 1b. Level of Consciousness (LOC) (Year \T\ Age) - 0(Both) 1c. LOC Commands (Open \T\ Closes Eyes/Lead Quality Control Technician) - 0(Both) 2. Best Gaze (Lateral Gaze Paresis) - 0(Normal) 3. Visual Field Loss - 0(No visual loss) 4. Facial Palsy - 2(Partial paralysis) 5a. Left Arm: Motor (10-second hold) - 0(No drift) 5b. Right Arm: Motor (10-second hold) - 1(Drift) 6a. Left Leg: Motor (5-second hold - always test supine) - 0(No drift) 6b. Right Leg: Motor (5-second hold - always test supine) - 1(Drift) 7. Limb Ataxia (finger/nose \T\ heel/mayfield - test with eyes open) - 0(Absent) 8. Sensory Loss (pinprick arms/legs/face) - 0(Normal) 9. Best Language: Aphasia (description/naming/reading) - 0(No aphasia) 10. Dysarthria (speech clarity - read or repeat words) - 1(Mild to Moderate) 11. Extinction and Inattention (visual/tactile/auditory/spatial/personal) - 0(No abnormality) Initials: jb4 NIH Stroke Scale - NIH Stroke Score Date: 03/22/2021 Time: 19:16 Total Score = 5 1a. Level of Consciousness (LOC) - 0(Alert) 1b. Level of Consciousness (LOC) (Year \T\ Age) - 0(Both) 1c. LOC Commands (Open \T\ Closes Eyes/Lead Quality Control Technician) - 0(Both) 2. Best Gaze (Lateral Gaze Paresis) - 0(Normal) 3. Visual Field Loss - 0(No visual loss) 4. Facial Palsy - 2(Partial paralysis) 5a. Left Arm: Motor (10-second hold) - 0(No drift) 5b. Right Arm: Motor (10-second hold) - 1(Drift) 6a. Left Leg: Motor (5-second hold - always test supine) - 0(No drift) 6b. Right Leg: Motor (5-second hold - always test supine) - 1(Drift) 7. Limb Ataxia (finger/nose \T\ heel/mayfield - test with eyes open) - 0(Absent) 8. Sensory Loss (pinprick arms/legs/face) - 0(Normal) 9. Best Language: Aphasia (description/naming/reading) - 0(No aphasia) 10. Dysarthria (speech clarity - read or repeat words) - 1(Mild to Moderate) 11. Extinction and Inattention (visual/tactile/auditory/spatial/personal) - 0(No abnormality) Initials: rn Signatures: Dispatcher [employer] Glen Ann RN Juliette Luong RN RN iw Nieto, Roman, MD MD rn Bryson, James, RN RN jb4 Norma Cain 2 Glenn Barrios RN RN rr5 Carolyne Salinas RN RN tr6 Glenn Barrios RN rr5 Corrections: (The following items were deleted from the chart) 19:53 19:41 60 kg; tr6 20:43 20:37 administrative approval given by Shoshana Berg/ patient has been accepted mw2 to [facility] bed pending/ Dr. Wooten has accepted the patient in transfer. mw2
[2021-03-22] MEDS ORDERED: FOLIC ACID 5 MG/ML VIAL ONE (20:57)
[2021-03-22 21:36] VITALS: TEMP 98.1
[2021-03-22 21:39] VITALS: BP 170/95; O2SAT 94
--- NOTE | 2021-03-23 07:36 | EKG ---
Test Date: 2021-03-22 Test Time: 19:28:02 Mash Filter Cloth Changer: RR MEASUREMENT RESULTS: Intervals: Rate: 83 VT: 160 QRSD: 72 QT: 398 QTc: 467 [place]: P: 64 VT: 160 QRS: 53 T: 73 INTERPRETIVE STATEMENTS: Normal sinus rhythm Cannot rule out Anterior infarct, age undetermined Abnormal ECG Compared to ECG 09/08/2019 17:31:55 Myocardial infarct finding now present ST (T wave) deviation no longer present Electronically Signed On 03-23-21 07:35:03 CDT by Xavi Davidson
== END 2021-03-22 21:26 | disposition short-term general hospital (02) ==
LOC: ER 19:12
DX: I63.9 Cerebral infarction, unspecified (principal); R29.705 NIHSS score 5; F17.210 Nicotine dependence, cigarettes, uncomplicated; I10 Essential (primary) hypertension
CPT/HCPCS: 36415; 70450; 71045; 80048; 82947; 83735; 84484; 85025; 85610; 85730; 92977; 93005; 96365; 96375; 99291; J2997

== ENCOUNTER 2021-12-12 01:39 | Emergency (ER) | payer OTHER ==
--- OUTSIDE RECORDS SUMMARY | 2021-12-12 01:46 | XMS REPORT | Continuity of Care Document ---
:1955 Author Organization [facility] t Address [address] [place] [address] Care Team Providers Name Role Phone Fannie Lamar MD Primary Care Physician [phone] MEHGA MA Attending Clinician Unavailable Brooks Rodrigez MD Attending Clinician SUJEY Attending Clinician Unavailable VALERIE Attending Clinician Unavailable LEXII Attending Clinician Unavailable DR BRODIE Attending Clinician Unavailable JANEEN Attending Clinician Unavailable RAS Attending Clinician Unavailable Moira MASCORRO Attending Clinician Unavailable MEGHA MA Admitting Clinician Unavailable DR BRODIE Admitting Clinician Unavailable Moira MASCORRO Admitting Clinician Unavailable Payers Payer Name Policy Type Policy Number Effective Date Expiration Date S melissa AETNA MEDICARE HMO [id number] POS MEDICARE PART A \T\ B [id number] - MEDICARE Problems Condition Condition Condition Status Onset Resolution [...] ents Source Name Type Date Date Clinician Penicill Propensi Active 2020-11 Rash, [facility] ins ty to 01-15 [facility] adverse 00:00: of reaction 00 Medicin s to e drug PENICILL Allergy Active [facility]ic[facility] drug Active [facility] ins allergy [facility] [place] [facility] Family History Family Member Diagnosis Comments Start Date Stop Date Source Mother Adopted [facility] Physicians Father Adopted [facility] Physicians Social History Social Habit Start Date Stop Date Quantity Comments Source Tobacco use and 2021-11-14 2021-11-14 Former smokeless [facility] exposure 00:00:00 00:00:00 tobacco user of Medicine Sex [birth year] [facility] 00:00:00 00:00:00 of Medicine Smoking Status Start Date Stop Date Source Current every day [facility] smoker Physicians Ex-smoker 2021-11-14 00:00:00 2021-11-14 00:00:00 [facility] ollege of Medicine Medications Ordered Filled Start Stop Current Ordering Indication Dosage Frequency Signature Comments Components Source Medication Medication Date Date Medication? Clinician (SIG) Name Name atorjennifer 2020-11 Yes 40mg Take 40 mg [facility] n (LIPITOR) 2-20 by mouth Ramiro ege 40 MG 15:05: daily. of tablet 35 Medicin e amlodipine 2020-11 Yes 5mg Take 5 mg [facility] (NORVASC) 5 2-20 by mouth Ramiro ege MG tablet 15:05: daily. of 35 Medicin e venlafaxine 2020-11 Yes 37.5mg Take 37.5 [facility] (EFFEXOR) 2-20 mg by [place] 37.5 MG 15:05: mouth of tablet 35 daily. Medicin e Aspirin 81 2020-11 Yes 81mg Take 81 mg B aylor MG tablet 2-20 by mouth Colleg e 15:05: daily. of 35 Medicin e Multiple 2020-11 Yes Take by [facility] r Vitamin 2-20 mouth [place] (MULTI 15:05: daily. of VITAMIN 35 Medicin DAILY) TABS e Klor-Con 8 Klor-Con 8 Yes Uni vers MEQ Oral MEQ Oral ity of Tablet Tablet [place] Extended Extended Physici Release Release ans Irbesartan Irbesartan Yes Uni vers 300 MG Oral 300 MG Oral i ty of Tablet Tablet [place] [facility] ans Venlafaxine Venlafaxine Yes U nivers HCl ER 150 HCl ER 150 ity of MG Oral MG Oral [place] Capsule Capsule Physici Extended Extended ans Release 24 Release 24 Hour Hour Aspirin 81 Aspirin 81 Yes Uni vers MG TABS MG TABS [facility] [place] [facility] ans Immunizations Ordered Immunization Filled Immunization Date Status Commen ts Source Name Name Destinee SARS-CoV-2 2021-11-14 Completed [facility] Vaccination 00:00:00 of Medicine Vital Signs Vital Name Observation Time Observation Value Comments Source HEIGHT 2021-03-22 23:15:00 165.1 cm WEIGHT 2021-03-22 23:15:00 60.9 kg Systolic blood 2021-11-14 21:02:00 133 mm[Hg] [facility] Medicine Diastolic blood 2021-11-14 21:02:00 80 mm[Hg] [facility] Medicine Heart rate 2021-11-14 21:02:00 77 /min [facility] Respiratory rate 2021-11-14 21:02:00 16 /min [facility] Body height 2021-11-14 21:02:00 165.1 cm [facility] Body weight 2021-11-14 21:02:00 71.668 kg [facility] BMI 2021-11-14 21:02:00 26.29 kg/m2 [facility] Oxygen saturation in 2021-11-14 21:02:00 99 /min [facility] Arterial blood by [facility] Pulse oximetry HEIGHT 2021-03-22 23:15:00 165.1 cm WEIGHT 2021-03-22 23:15:00 60.9 kg BP Systolic 2018-04-03 14:00:00 107 mm[Hg] [facility] BP Diastolic 2018-04-03 14:00:00 60 mm[Hg] [facility] Height 2018-04-03 14:00:00 65 [in_us] [facility] Weight 2018-04-03 14:00:00 142 [lb_av] [facility] Body Mass Index 2018-04-03 14:00:00 23.63 kg/m2 Unive rsity of Calculated [place] Physician s Heart Rate 2018-04-03 14:00:00 67 /min [facility] BP Systolic 2018-02-27 15:54:00 122 mm[Hg] [facility] Physician s BP Diastolic 2018-02-27 15:54:00 64 mm[Hg] [facility] Physician s Height 2018-02-27 15:54:00 65 [in_us] [facility] Physician s Weight 2018-02-27 15:54:00 142 [lb_av] [facility] Physician s Body Mass Index 2018-02-27 15:54:00 23.63 kg/m2 [facility] Physician s Heart Rate 2018-02-27 15:54:00 82 /min [facility] Physician s Procedures Procedure Date / Time Performing Clinician Source Performed ELECTROCARDIOGRAM COMPLETE 2021-11-14 21:40:01 Edwin Rodrigez [facility] [U] XRAY HIP UNILATERAL MIN 2018-02-19 00:00:00 [facility] 2 VWS LEFT [id number] Physicians [facility] Plan of Care Planned Activity Planned Date Details Comments Source Future Scheduled 2021-11-16 Screening for [facility] Col lege of Test 08:24:47 malignant neoplasm of Medici ne colon (procedure) [code = 321544834] Future Scheduled 2021-11-16 Screening for [facility] Col lege of Test 08:24:47 malignant neoplasm of Medici ne breast (procedure) [code = 652846335] Future Scheduled 2021-11-16 TETANUS SHOT (ADULT) [facility] of Test 08:24:47 [code = TETANUS SHOT Medicin e (ADULT)] Future Scheduled 2021-11-16 BMI FOLLOW UP PLAN [facility] of Test 08:24:47 [code = BMI FOLLOW UP Medici ne PLAN] Future Scheduled 2021-11-16 Hepatitis C screening [facility] of Test 08:24:47 (procedure) [code = Medicine [id number]] Future Scheduled 2021-11-16 ZOSTER VACCINE (1 of [facility] of Test 08:24:47 2) [code = ZOSTER Medicine VACCINE (1 of 2)] Future Scheduled 2021-11-16 FALL SCREEN [code = [facility] of Test 08:24:47 FALL SCREEN] Medicine Future Scheduled 2021-11-16 Screening for [place] Col lege of Test 08:24:47 osteoporosis Medicine (procedure) [code = 803140827] Future Scheduled 2021-11-16 Pneumococcal 65+ (1 of [facility] Test 08:24:47 1 - PPSV23) [code = Medicine Pneumococcal 65+ (1 of 1 - PPSV23)] Future Scheduled 2021-11-16 MEDICARE AWV (Initial) [facility] Test 08:24:47 [code = MEDICARE AWV Medicin e (Initial)] Future Scheduled 2021-11-16 FLU VACCINE > 6 MONTHS [facility] Test 08:24:47 [code = FLU VACCINE > Medici ne 6 MONTHS] Encounters Start End Encounter Admission Attending Care Care Encounter Source Date/Time Date/Time Type Type Clinicians Facility Department ID 2021-03-22 [facility] Neurology [id number] [facility] 22:50:00 CELESTE 2021-11-14 2021-11-14 Office AIDA Rodrigez [id number] [place] [address] 15:00:00 16:24:08 Visit Mihail AMBULATOR [id number] [place] Brooks Y [id number] of [id number] Medi chris 375 e 2021-11-14 2021-11-14 Outpatient [facility] [id number] [address] [place] [address] 15:49:12 15:49:12 Colleg e of Medicin e 2021-10-04 2021-10-04 Emergency EGBERS, [facility] [id number] [place] 00:00:00 00:00:00 EMAN[address] 2021-03-22 2021-03-22 Outpatient [facility] [id number] [place] 00:00:00 00:00:[address] 2021-02-28 2021-02-28 Outpatient VALERIE, [facility] [id number] [place] 00:00:00 00:00:[address] 2021-02-04 2021-02-04 Outpatient [facility] [id number] [place] 00:00:00 00:00:[address] 2020-08-09 2020-08-09 Outpatient BLADE SHULTZ [facility] [id number] [place] 00:00:00 00:00:[address] 2020-08-09 2020-08-09 Outpatient BLADE SHULTZ [facility] [id number] [place] 00:00:00 00:00:00 455 [address] i 2018-09-20 2018-09-20 Outpatient Steve [facility] [id number] [place] 04:27:00 06:40:00 GREGORIO [facility] [place] 2018-03-21 2018-03-21 Appointmen DON VERNON [facility] [id number] Univers 14:00:00 14:00:00 t; KARISHMA VERNON M.D. Ortho and ity of KARISHMA, Spine S [facility] Medical Physici [place] ans 2018-02-19 2018-02-19 Appointmen DON VERNON [facility] [id number] Univers 13:00:00 13:00:00 t; KARISHMA VERNON M.D. Ortho and ity of KARISHMA, Spine [facility] Medical Physici [place] ans 2016-08-23 2016-08-[facility] [id number] Univers 15:15:00 15:15:00 t; AGUSTIN MCGINNIS [place] [facility]ici ans 2016-06-21 2016-06-21 Outpatient Steve MASCORRO, [facility] [place] [id number] [place] 09:51:00 23:59:00 [facility] Results Test Description Test Time Test Comments Results Result Comments Source BASIC METABOLIC PANEL 2021-04-01 06:10:00 Test Item Value Reference Range Interpretation Comme nts SODIUM (BEAKER) (test code 137 meq/L 136-145 = 381) POTASSIUM (BEAKER) (test 3.9 meq/L 3.5-5.1 code = 379) CHLORIDE (BEAKER) (test 103 meq/L 98-107 code = 382) CO2 (BEAKER) (test code = 29 meq/L 22-29 355) BLOOD UREA NITROGEN 34 mg/dL 7-21 H (BEAKER) (test code = 354) CREATININE (BEAKER) (test 1.19 mg/dL 0.57-1.25 code = 358) GLUCOSE RANDOM (BEAKER) 91 mg/dL 70-105 (test code = 652) CALCIUM (BEAKER) (test code 8.6 mg/dL 8.4-10.2 = 697) EGFR (BEAKER) (test code = 45 mL/min/1.73 sq m ESTIMATED GFR IS NOT 1092) ACCURATE CRE ATININE CLEARANCE IN [place] EDICTING GLOMERULAR FILT RATION RATE. ESTIMATED GFR IS NOT APPLICABLE FOR DIALYSIS PATIENTS. Cake Icer ID - [id number] 06:10:00 Test Item Value Reference Range Interpretation Comments MAGNESIUM (BEAKER) (test code = 2.0 mg/dL 1.6-2.6 627) Cake Icer ID - [id number] 06:10:00 Test Item Value Reference Range Interpretation Comments PHOSPHORUS (BEAKER) (test code = 4.5 mg/dL 2.3-4.7 604) Cake Icer ID - EDASICBC W/PLT COUNT & AUTO [id number] 05:44:00 Test Item Value Reference Range Interpretation Comments WHITE BLOOD CELL COUNT (BEAKER) 7.4 K/ L 3.5-10.5 (test code = 775) RED BLOOD CELL COUNT (BEAKER) 3.36 M/ L 3.93-5.22 L (test code = 761) HEMOGLOBIN (BEAKER) (test code = 10.4 GM/DL 11.2-15.7 L 410) HEMATOCRIT (BEAKER) (test code = 32.7 % 34.1-44.9 L 411) MEAN CORPUSCULAR VOLUME (BEAKER) 97.3 fL 79.4-94.8 H (test code = 753) MEAN CORPUSCULAR HEMOGLOBIN 31.0 pg 25.6-32.2 (BEAKER) (test code = 751) MEAN CORPUSCULAR HEMOGLOBIN CONC 31.8 GM/DL 32.2-35.5 L (BEAKER) (test code = 752) RED CELL DISTRIBUTION WIDTH 13.9 % 11.7-14.4 (BEAKER) (test code = 412) PLATELET COUNT (BEAKER) (test 207 K/CU MM 150-450 code = 756) MEAN PLATELET VOLUME (BEAKER) 12.5 fL 9.4-12.3 H (test code = 754) NUCLEATED RED BLOOD CELLS 0 /100 WBC 0-0 (BEAKER) (test code = 413) NEUTROPHILS RELATIVE PERCENT 53 % (BEAKER) (test code = 429) LYMPHOCYTES RELATIVE PERCENT 36 % (BEAKER) (test code = 430) MONOCYTES RELATIVE PERCENT 8 % (BEAKER) (test code = 431) EOSINOPHILS RELATIVE PERCENT 2 % (BEAKER) (test code = 432) BASOPHILS RELATIVE PERCENT 1 % (BEAKER) (test code = 437) NEUTROPHILS ABSOLUTE COUNT 3.94 K/ L 1.56-6.13 (BEAKER) (test code = 670) LYMPHOCYTES ABSOLUTE COUNT 2.67 K/ L 1.18-3.74 (BEAKER) (test code = 414) MONOCYTES ABSOLUTE COUNT (BEAKER) 0.57 K/ L 0.24-0.36 H (test code = 415) EOSINOPHILS ABSOLUTE COUNT 0.13 K/ L 0.04-0.36 (BEAKER) (test code = 416) BASOPHILS ABSOLUTE COUNT (BEAKER) 0.05 K/ L 0.01-0.08 (test code = 417) IMMATURE GRANULOCYTES-RELATIVE 0 % 0-1 PERCENT (BEAKER) (test code = 2801) BASIC METABOLIC [id number] 06:02:00 Test Item Value Reference Range Interpretation Comments SODIUM (BEAKER) 138 meq/L 136-145 (test code = 381) POTASSIUM (BEAKER) 4.1 meq/L 3.5-5.1 (test code = 379) CHLORIDE (BEAKER) 102 meq/L 98-107 (test code = 382) CO2 (BEAKER) (test 29 meq/L 22-29 code = 355) BLOOD UREA NITROGEN 31 mg/dL 7-21 H (BEAKER) (test code = 354) CREATININE (BEAKER) 1.31 mg/dL 0.57-1.25 H (test code = 358) GLUCOSE RANDOM 87 mg/dL 70-105 (BEAKER) (test code = 652) CALCIUM (BEAKER) 8.7 mg/dL 8.4-10.2 (test code = 697) EGFR (BEAKER) (test 40 mL/min/1.73 ESTIMA INES GFR IS code = 1092) sq m NOT ACCURATE CREATININE CLEARANCE IN PREDICTING GLOMERULAR FILTRATION RATE . ESTIMATED GFR I S NOT APPLICABLE FOR DIALYSIS PATIEN TS. Cake Icer ID - SOMMER [id number] 06:02:00 Test Item Value Reference Range Interpretation Comments MAGNESIUM (BEAKER) (test code = 2.0 mg/dL 1.6-2.6 627) Cake Icer ID - SOMMER [id number] 06:02:00 Test Item Value Reference Range Interpretation Comments PHOSPHORUS (BEAKER) (test code = 5.0 mg/dL 2.3-4.7 H 604) Cake Icer ID Cooper NOVOA MCBC W/PLT COUNT & AUTO [id number] 05:25:00 Test Item Value Reference Range Interpretation Comments WHITE BLOOD CELL COUNT (BEAKER) 7.8 K/ L 3.5-10.5 (test code = 775) RED BLOOD CELL COUNT (BEAKER) 3.31 M/ L 3.93-5.22 L (test code = 761) HEMOGLOBIN (BEAKER) (test code = 10.4 GM/DL 11.2-15.7 L 410) HEMATOCRIT (BEAKER) (test code = 31.8 % 34.1-44.9 L 411) MEAN CORPUSCULAR VOLUME (BEAKER) 96.1 fL 79.4-94.8 H (test code = 753) MEAN CORPUSCULAR HEMOGLOBIN 31.4 pg 25.6-32.2 (BEAKER) (test code = 751) MEAN CORPUSCULAR HEMOGLOBIN CONC 32.7 GM/DL 32.2-35.5 (BEAKER) (test code = 752) RED CELL DISTRIBUTION WIDTH 13.8 % 11.7-14.4 (BEAKER) (test code = 412) PLATELET COUNT (BEAKER) (test 200 K/CU MM 150-450 code = 756) MEAN PLATELET VOLUME (BEAKER) 12.2 fL 9.4-12.3 (test code = 754) NUCLEATED RED BLOOD CELLS 0 /100 WBC 0-0 (BEAKER) (test code = 413) NEUTROPHILS RELATIVE PERCENT 59 % (BEAKER) (test code = 429) LYMPHOCYTES RELATIVE PERCENT 31 % (BEAKER) (test code = 430) MONOCYTES RELATIVE PERCENT 8 % (BEAKER) (test code = 431) EOSINOPHILS RELATIVE PERCENT 2 % (BEAKER) (test code = 432) BASOPHILS RELATIVE PERCENT 0 % (BEAKER) (test code = 437) NEUTROPHILS ABSOLUTE COUNT 4.58 K/ L 1.56-6.13 (BEAKER) (test code = 670) LYMPHOCYTES ABSOLUTE COUNT 2.43 K/ L 1.18-3.74 (BEAKER) (test code = 414) MONOCYTES ABSOLUTE COUNT (BEAKER) 0.60 K/ L 0.24-0.36 H (test code = 415) EOSINOPHILS ABSOLUTE COUNT 0.13 K/ L 0.04-0.36 (BEAKER) (test code = 416) BASOPHILS ABSOLUTE COUNT (BEAKER) 0.03 K/ L 0.01-0.08 (test code = 417) IMMATURE GRANULOCYTES-RELATIVE 0 % 0-1 PERCENT (BEAKER) (test code = 2801) SARS-COV2/RT-PCR ([facility])2021-03-31 04:36:00 Test Item Value Reference Range Interpretation Comments SARS-COV2/RT-PCR (test Negative Not Detected, Negative, code = 0558134) See external report for linked test SARS-COV-[address] [facility] (test code = 5017359) Negative result for this test determines that SARS-CoV-2 RNA was not present in the specimen above the Limit of Detection (LOD). However, Negative results do not preclude SARS-CoV-2 infection and should not be used as the sole basis for treatment or patient management decisions. Negative results mustbe combined with clinical observations, patient history, and epidemiological information. A false negative result may occur if a specimen is improperly collected, transported or handled. A false negative result should be considered if patient's recent exposures or clinical presentation indicate that COVID-19 (SARS-CoV-2) is likely and diagnostic tests for other causes of illness are negative. Re-testing should be considered in cases of suspected false negatives.The limit of detection for this assay is 100 copies/mL.This SARS CoV-2 test is a real-time RT-PCR test intended for the qualitative detection of nucleic acid from SARS-CoV-2 in a nasopharyngeal swab specimen collected from individuals susp ected of COVID-19 by their healthcare provider.This test has not been Food and Drug Administration (FDA) cleared or approved. This is a modified version of an approved Emergency Use Authorization (EUA) and is in the process of review by the FDA. Once authorized by the FDA, the issued EUA will be effective until the declaration that circumstances exist justifying the authorization of the emergency use of in vitro diagnostic tests for detection and/or diagnosis of COVID-19 is terminated under Section 564(b)(2) of the Act or the EUA is revoked under Section 564(g) of the Act.Testing was performed using the Trevino SARS-CoV-2 assay.Fact Sheet for Healthcare Providers:https://www.[place].trevino/marilee/ LZ_ESJL-KmY-4_JRP_Urhk_Lzuyq_83-465628.pdfFact Sheet for Healthcare Patients:https://www.[place].Knewbi.com liliana/marilee/FG_TCGX-FuK-0_Qlodies_Ghrn_Zizjx_XZ_[email or web address].pdfPerforming Laboratory:[facility] [place] [address] BASIC METABOLIC [id number] 07:10:00 Test Item Value Reference Range Interpretation Comments SODIUM (BEAKER) 136 meq/L 136-145 (test code = 381) POTASSIUM (BEAKER) 4.1 meq/L 3.5-5.1 (test code = 379) CHLORIDE (BEAKER) 103 meq/L 98-107 (test code = 382) CO2 (BEAKER) (test 24 meq/L 22-29 code = 355) BLOOD UREA NITROGEN 28 mg/dL 7-21 H (BEAKER) (test code = 354) CREATININE (BEAKER) 1.16 mg/dL 0.57-1.25 (test code = 358) GLUCOSE RANDOM 96 mg/dL 70-105 (BEAKER) (test code = 652) CALCIUM (BEAKER) 8.8 mg/dL 8.4-10.2 (test code = 697) EGFR (BEAKER) (test 47 mL/min/1.73 ESTIMA INES GFR IS code = 1092) sq m NOT ACCURATE CREATININE CLEARANCE IN PREDICTING GLOMERULAR FILTRATION RATE . ESTIMATED GFR I S NOT APPLICABLE FOR DIALYSIS PATIEN TS. Cake Icer ID - ALINE [id number] 07:10:00 Test Item Value Reference Range Interpretation Comments MAGNESIUM (BEAKER) (test code = 2.0 mg/dL 1.6-2.6 627) Cake Icer ID - ALINE [id number] 07:10:00 Test Item Value Reference Range Interpretation Comments PHOSPHORUS (BEAKER) (test code = 4.2 mg/dL 2.3-4.7 604) Cake Icer ID - ALINE LBASIC METABOLIC [id number] 05:46:00 Test Item Value Reference Range Interpretation Comments SODIUM (BEAKER) 136 meq/L 136-145 (test code = 381) POTASSIUM (BEAKER) 4.0 meq/L 3.5-5.1 (test code = 379) CHLORIDE (BEAKER) 100 meq/L 98-107 (test code = 382) CO2 (BEAKER) (test 28 meq/L 22-29 code = 355) BLOOD UREA NITROGEN 26 mg/dL 7-21 H (BEAKER) (test code = 354) CREATININE (BEAKER) 1.21 mg/dL 0.57-1.25 (test code = 358) GLUCOSE RANDOM 93 mg/dL 70-105 (BEAKER) (test code = 652) CALCIUM (BEAKER) 8.8 mg/dL 8.4-10.2 (test code = 697) EGFR (BEAKER) (test 44 mL/min/1.73 ESTIMA INES GFR IS code = 1092) sq m NOT ACCURATE CREATININE CLEARANCE IN PREDICTING GLOMERULAR FILTRATION RATE . ESTIMATED GFR I S NOT APPLICABLE FOR DIALYSIS PATIEN TS. Cake Icer ID - SOMMER [id number] 05:46:00 Test Item Value Reference Range Interpretation Comments MAGNESIUM (BEAKER) (test code = 1.9 mg/dL 1.6-2.6 627) Cake Icer ID - SOMMER [id number] 05:46:00 Test Item Value Reference Range Interpretation Comments PHOSPHORUS (BEAKER) (test code = 4.4 mg/dL 2.3-4.7 604) Cake Icer ID - SOMMER MCBC W/PLT COUNT & AUTO [id number] 05:11:00 Test Item Value Reference Range Interpretation Comments WHITE BLOOD CELL COUNT (BEAKER) 7.4 K/ L 3.5-10.5 (test code = 775) RED BLOOD CELL COUNT (BEAKER) 3.41 M/ L 3.93-5.22 L (test code = 761) HEMOGLOBIN (BEAKER) (test code = 10.6 GM/DL 11.2-15.7 L 410) HEMATOCRIT (BEAKER) (test code = 33.2 % 34.1-44.9 L 411) MEAN CORPUSCULAR VOLUME (BEAKER) 97.4 fL 79.4-94.8 H (test code = 753) MEAN CORPUSCULAR HEMOGLOBIN 31.1 pg 25.6-32.2 (BEAKER) (test code = 751) MEAN CORPUSCULAR HEMOGLOBIN CONC 31.9 GM/DL 32.2-35.5 L (BEAKER) (test code = 752) RED CELL DISTRIBUTION WIDTH 13.9 % 11.7-14.4 (BEAKER) (test code = 412) PLATELET COUNT (BEAKER) (test 210 K/CU MM 150-450 code = 756) MEAN PLATELET VOLUME (BEAKER) 12.2 fL 9.4-12.3 (test code = 754) NUCLEATED RED BLOOD CELLS 0 /100 WBC 0-0 (BEAKER) (test code = 413) NEUTROPHILS RELATIVE PERCENT 64 % (BEAKER) (test code = 429) LYMPHOCYTES RELATIVE PERCENT 25 % (BEAKER) (test code = 430) MONOCYTES RELATIVE PERCENT 8 % (BEAKER) (test code = 431) EOSINOPHILS RELATIVE PERCENT 2 % (BEAKER) (test code = 432) BASOPHILS RELATIVE PERCENT 1 % (BEAKER) (test code = 437) NEUTROPHILS ABSOLUTE COUNT 4.73 K/ L 1.56-6.13 (BEAKER) (test code = 670) LYMPHOCYTES ABSOLUTE COUNT 1.86 K/ L 1.18-3.74 (BEAKER) (test code = 414) MONOCYTES ABSOLUTE COUNT (BEAKER) 0.62 K/ L 0.24-0.36 H (test code = 415) EOSINOPHILS ABSOLUTE COUNT 0.15 K/ L 0.04-0.36 (BEAKER) (test code = 416) BASOPHILS ABSOLUTE COUNT (BEAKER) 0.04 K/ L 0.01-0.08 (test code = 417) IMMATURE GRANULOCYTES-RELATIVE 0 % 0-1 PERCENT (BEAKER) (test code = 2801) [id number] 06:01:00 Test Item Value Reference Range Interpretation Comments MAGNESIUM (BEAKER) 2.0 mg/dL 1.6-2.6 Specimen slightly (test code = 627) hemolyzed Cake Icer ID - [id number] 06:01:00 Test Item Value Reference Range Interpretation Comments PHOSPHORUS (BEAKER) 4.7 mg/dL 2.3-4.7 Specimen slightly (test code = 604) hemolyzed Cake Icer ID - DBBASIC METABOLIC [id number] 06:01:00 Test Item Value Reference Range Interpretation Comments SODIUM (BEAKER) 135 meq/L 136-145 L (test code = 381) POTASSIUM (BEAKER) 4.5 meq/L 3.5-5.1 Specimen slightly (test code = 379) hemolyzed CHLORIDE (BEAKER) 100 meq/L 98-107 (test code = 382) CO2 (BEAKER) (test 28 meq/L 22-29 code = 355) BLOOD UREA NITROGEN 22 mg/dL 7-21 H (BEAKER) (test code = 354) CREATININE (BEAKER) 1.16 mg/dL 0.57-1.25 Specimen slightly (test code = 358) hemolyzed GLUCOSE RANDOM 97 mg/dL 70-105 (BEAKER) (test code = 652) CALCIUM (BEAKER) 8.8 mg/dL 8.4-10.2 (test code = 697) EGFR (BEAKER) (test 47 mL/min/1.73 ESTIMA INES GFR IS code = 1092) sq m NOT ACCURATE CREATININE CLEARANCE IN PREDICTING GLOMERULAR FILTRATION RATE . ESTIMATED GFR I S NOT APPLICABLE FOR DIALYSIS PATIEN TS. Cake Icer ID - DBCBC W/PLT COUNT & AUTO [id number] 05:29:00 Test Item Value Reference Range Interpretation Comments WHITE BLOOD CELL COUNT (BEAKER) 7.4 K/ L 3.5-10.5 (test code = 775) RED BLOOD CELL COUNT (BEAKER) 3.39 M/ L 3.93-5.22 L (test code = 761) HEMOGLOBIN (BEAKER) (test code = 10.5 GM/DL 11.2-15.7 L 410) HEMATOCRIT (BEAKER) (test code = 32.5 % 34.1-44.9 L 411) MEAN CORPUSCULAR VOLUME (BEAKER) 95.9 fL 79.4-94.8 H (test code = 753) MEAN CORPUSCULAR HEMOGLOBIN 31.0 pg 25.6-32.2 (BEAKER) (test code = 751) MEAN CORPUSCULAR HEMOGLOBIN CONC 32.3 GM/DL 32.2-35.5 (BEAKER) (test code = 752) RED CELL DISTRIBUTION WIDTH 13.8 % 11.7-14.4 (BEAKER) (test code = 412) PLATELET COUNT (BEAKER) (test 203 K/CU MM 150-450 code = 756) MEAN PLATELET VOLUME (BEAKER) 12.1 fL 9.4-12.3 (test code = 754) NUCLEATED RED BLOOD CELLS 0 /100 WBC 0-0 (BEAKER) (test code = 413) NEUTROPHILS RELATIVE PERCENT 67 % (BEAKER) (test code = 429) LYMPHOCYTES RELATIVE PERCENT 24 % (BEAKER) (test code = 430) MONOCYTES RELATIVE PERCENT 7 % (BEAKER) (test code = 431) EOSINOPHILS RELATIVE PERCENT 2 % (BEAKER) (test code = 432) BASOPHILS RELATIVE PERCENT 1 % (BEAKER) (test code = 437) NEUTROPHILS ABSOLUTE COUNT 4.97 K/ L 1.56-6.13 (BEAKER) (test code = 670) LYMPHOCYTES ABSOLUTE COUNT 1.76 K/ L 1.18-3.74 (BEAKER) (test code = 414) MONOCYTES ABSOLUTE COUNT (BEAKER) 0.52 K/ L 0.24-0.36 H (test code = 415) EOSINOPHILS ABSOLUTE COUNT 0.11 K/ L 0.04-0.36 (BEAKER) (test code = 416) BASOPHILS ABSOLUTE COUNT (BEAKER) 0.04 K/ L 0.01-0.08 (test code = 417) IMMATURE GRANULOCYTES-RELATIVE 1 % 0-1 PERCENT (BEAKER) (test code = 2801) BASIC METABOLIC [id number] 07:42:00 Test Item Value Reference Range Interpretation Comments SODIUM (BEAKER) 138 meq/L 136-145 (test code = 381) POTASSIUM (BEAKER) 4.1 meq/L 3.5-5.1 (test code = 379) CHLORIDE (BEAKER) 102 meq/L 98-107 (test code = 382) CO2 (BEAKER) (test 26 meq/L 22-29 code = 355) BLOOD UREA NITROGEN 17 mg/dL 7-21 (BEAKER) (test code = 354) CREATININE (BEAKER) 1.18 mg/dL 0.57-1.25 (test code = 358) GLUCOSE RANDOM 91 mg/dL 70-105 (BEAKER) (test code = 652) CALCIUM (BEAKER) 8.8 mg/dL 8.4-10.2 (test code = 697) EGFR (BEAKER) (test 46 mL/min/1.73 ESTIMA INES GFR IS code = 1092) sq m NOT ACCURATE CREATININE CLEARANCE IN PREDICTING GLOMERULAR FILTRATION RATE . ESTIMATED GFR I S NOT APPLICABLE FOR DIALYSIS PATIEN TS. Cake Icer ID - [id number] 07:42:00 Test Item Value Reference Range Interpretation Comments MAGNESIUM (BEAKER) (test code = 1.9 mg/dL 1.6-2.6 627) Cake Icer ID - [id number] 07:42:00 Test Item Value Reference Range Interpretation Comments PHOSPHORUS (BEAKER) (test code = 4.8 mg/dL 2.3-4.7 H 604) Cake Icer ID - DBCBC W/PLT COUNT & AUTO [id number] 07:18:00 Test Item Value Reference Range Interpretation Comments WHITE BLOOD CELL COUNT (BEAKER) 5.8 K/ L 3.5-10.5 (test code = 775) RED BLOOD CELL COUNT (BEAKER) 3.41 M/ L 3.93-5.22 L (test code = 761) HEMOGLOBIN (BEAKER) (test code = 10.8 GM/DL 11.2-15.7 L 410) HEMATOCRIT (BEAKER) (test code = 32.7 % 34.1-44.9 L 411) MEAN CORPUSCULAR VOLUME (BEAKER) 95.9 fL 79.4-94.8 H (test code = 753) MEAN CORPUSCULAR HEMOGLOBIN 31.7 pg 25.6-32.2 (BEAKER) (test code = 751) MEAN CORPUSCULAR HEMOGLOBIN CONC 33.0 GM/DL 32.2-35.5 (BEAKER) (test code = 752) RED CELL DISTRIBUTION WIDTH 13.7 % 11.7-14.4 (BEAKER) (test code = 412) PLATELET COUNT (BEAKER) (test 179 K/CU MM 150-450 code = 756) MEAN PLATELET VOLUME (BEAKER) 11.9 fL 9.4-12.3 (test code = 754) NUCLEATED RED BLOOD CELLS 0 /100 WBC 0-0 (BEAKER) (test code = 413) NEUTROPHILS RELATIVE PERCENT 59 % (BEAKER) (test code = 429) LYMPHOCYTES RELATIVE PERCENT 32 % (BEAKER) (test code = 430) MONOCYTES RELATIVE PERCENT 6 % (BEAKER) (test code = 431) EOSINOPHILS RELATIVE PERCENT 2 % (BEAKER) (test code = 432) BASOPHILS RELATIVE PERCENT 1 % (BEAKER) (test code = 437) NEUTROPHILS ABSOLUTE COUNT 3.46 K/ L 1.56-6.13 (BEAKER) (test code = 670) LYMPHOCYTES ABSOLUTE COUNT 1.84 K/ L 1.18-3.74 (BEAKER) (test code = 414) MONOCYTES ABSOLUTE COUNT (BEAKER) 0.37 K/ L 0.24-0.36 H (test code = 415) EOSINOPHILS ABSOLUTE COUNT 0.10 K/ L 0.04-0.36 (BEAKER) (test code = 416) BASOPHILS ABSOLUTE COUNT (BEAKER) 0.04 K/ L 0.01-0.08 (test code = 417) IMMATURE GRANULOCYTES-RELATIVE 0 % 0-1 PERCENT (BEAKER) (test code = 2801) BASIC METABOLIC [id number] 04:52:00 Test Item Value Reference Range Interpretation Comments SODIUM (BEAKER) 137 meq/L 136-145 (test code = 381) POTASSIUM (BEAKER) 4.4 meq/L 3.5-5.1 (test code = 379) CHLORIDE (BEAKER) 103 meq/L 98-107 (test code = 382) CO2 (BEAKER) (test 28 meq/L 22-29 code = 355) BLOOD UREA NITROGEN 16 mg/dL 7-21 (BEAKER) (test code = 354) CREATININE (BEAKER) 1.15 mg/dL 0.57-1.25 (test code = 358) GLUCOSE RANDOM 101 mg/dL 70-105 (BEAKER) (test code = 652) CALCIUM (BEAKER) 8.6 mg/dL 8.4-10.2 (test code = 697) EGFR (BEAKER) (test 47 mL/min/1.73 ESTIMA INES GFR IS code = 1092) sq m NOT ACCURATE CREATININE CLEARANCE IN PREDICTING GLOMERULAR FILTRATION RATE . ESTIMATED GFR I S NOT APPLICABLE FOR DIALYSIS PATIEN TS. Cake Icer ID - [id number] 04:52:00 Test Item Value Reference Range Interpretation Comments MAGNESIUM (BEAKER) (test code = 1.8 mg/dL 1.6-2.6 627) Cake Icer ID - [id number] 04:52:00 Test Item Value Reference Range Interpretation Comments PHOSPHORUS (BEAKER) (test code = 4.6 mg/dL 2.3-4.7 604) Cake Icer ID - ADMINCBC W/PLT COUNT & AUTO [id number] 04:26:00 Test Item Value Reference Range Interpretation Comments WHITE BLOOD CELL COUNT (BEAKER) 8.3 K/ L 3.5-10.5 (test code = 775) RED BLOOD CELL COUNT (BEAKER) 3.18 M/ L 3.93-5.22 L (test code = 761) HEMOGLOBIN (BEAKER) (test code = 9.8 GM/DL 11.2-15.7 L 410) HEMATOCRIT (BEAKER) (test code = 30.3 % 34.1-44.9 L 411) MEAN CORPUSCULAR VOLUME (BEAKER) 95.3 fL 79.4-94.8 H (test code = 753) MEAN CORPUSCULAR HEMOGLOBIN 30.8 pg 25.6-32.2 (BEAKER) (test code = 751) MEAN CORPUSCULAR HEMOGLOBIN CONC 32.3 GM/DL 32.2-35.5 (BEAKER) (test code = 752) RED CELL DISTRIBUTION WIDTH 13.6 % 11.7-14.4 (BEAKER) (test code = 412) PLATELET COUNT (BEAKER) (test 175 K/CU MM 150-450 code = 756) MEAN PLATELET VOLUME (BEAKER) 12.3 fL 9.4-12.3 (test code = 754) NUCLEATED RED BLOOD CELLS 0 /100 WBC 0-0 (BEAKER) (test code = 413) NEUTROPHILS RELATIVE PERCENT 70 % (BEAKER) (test code = 429) LYMPHOCYTES RELATIVE PERCENT 23 % (BEAKER) (test code = 430) MONOCYTES RELATIVE PERCENT 5 % (BEAKER) (test code = 431) EOSINOPHILS RELATIVE PERCENT 1 % (BEAKER) (test code = 432) BASOPHILS RELATIVE PERCENT 0 % (BEAKER) (test code = 437) NEUTROPHILS ABSOLUTE COUNT 5.83 K/ L 1.56-6.13 (BEAKER) (test code = 670) LYMPHOCYTES ABSOLUTE COUNT 1.92 K/ L 1.18-3.74 (BEAKER) (test code = 414) MONOCYTES ABSOLUTE COUNT (BEAKER) 0.45 K/ L 0.24-0.36 H (test code = 415) EOSINOPHILS ABSOLUTE COUNT 0.07 K/ L 0.04-0.36 (BEAKER) (test code = 416) BASOPHILS ABSOLUTE COUNT (BEAKER) 0.03 K/ L 0.01-0.08 (test code = 417) IMMATURE GRANULOCYTES-RELATIVE 0 % 0-1 PERCENT (BEAKER) (test code = 2801) BASIC METABOLIC [id number] 05:41:00 Test Item Value Reference Range Interpretation Comments SODIUM (BEAKER) 134 meq/L 136-145 L (test code = 381) POTASSIUM (BEAKER) 4.1 meq/L 3.5-5.1 (test code = 379) CHLORIDE (BEAKER) 105 meq/L 98-107 (test code = 382) CO2 (BEAKER) (test 25 meq/L 22-29 code = 355) BLOOD UREA NITROGEN 11 mg/dL 7-21 (BEAKER) (test code = 354) CREATININE (BEAKER) 1.09 mg/dL 0.57-1.25 (test code = 358) GLUCOSE RANDOM 91 mg/dL 70-105 (BEAKER) (test code = 652) CALCIUM (BEAKER) 8.0 mg/dL 8.4-10.2 L (test code = 697) EGFR (BEAKER) (test 50 mL/min/1.73 ESTIMA INES GFR IS code = 1092) sq m NOT ACCURATE CREATININE CLEARANCE IN PREDICTING GLOMERULAR FILTRATION RATE . ESTIMATED GFR I S NOT APPLICABLE FOR DIALYSIS PATIEN TS. Cake Icer ID - [id number] 05:41:00 Test Item Value Reference Range Interpretation Comments MAGNESIUM (BEAKER) (test code = 1.9 mg/dL 1.6-2.6 627) Cake Icer ID - [id number] 05:41:00 Test Item Value Reference Range Interpretation Comments PHOSPHORUS (BEAKER) (test code = 3.6 mg/dL 2.3-4.7 604) Cake Icer ID - EDASICBC W/PLT COUNT & AUTO [id number] 05:15:00 Test Item Value Reference Range Interpretation Comments WHITE BLOOD CELL COUNT (BEAKER) 7.4 K/ L 3.5-10.5 (test code = 775) RED BLOOD CELL COUNT (BEAKER) 3.15 M/ L 3.93-5.22 L (test code = 761) HEMOGLOBIN (BEAKER) (test code = 10.0 GM/DL 11.2-15.7 L 410) HEMATOCRIT (BEAKER) (test code = 29.3 % 34.1-44.9 L 411) MEAN CORPUSCULAR VOLUME (BEAKER) 93.0 fL 79.4-94.8 (test code = 753) MEAN CORPUSCULAR HEMOGLOBIN 31.7 pg 25.6-32.2 (BEAKER) (test code = 751) MEAN CORPUSCULAR HEMOGLOBIN CONC 34.1 GM/DL 32.2-35.5 (BEAKER) (test code = 752) RED CELL DISTRIBUTION WIDTH 13.8 % 11.7-14.4 (BEAKER) (test code = 412) PLATELET COUNT (BEAKER) (test 171 K/CU MM 150-450 code = 756) MEAN PLATELET VOLUME (BEAKER) 11.7 fL 9.4-12.3 (test code = 754) NUCLEATED RED BLOOD CELLS 0 /100 WBC 0-0 (BEAKER) (test code = 413) NEUTROPHILS RELATIVE PERCENT 66 % (BEAKER) (test code = 429) LYMPHOCYTES RELATIVE PERCENT 26 % (BEAKER) (test code = 430) MONOCYTES RELATIVE PERCENT 6 % (BEAKER) (test code = 431) EOSINOPHILS RELATIVE PERCENT 1 % (BEAKER) (test code = 432) BASOPHILS RELATIVE PERCENT 0 % (BEAKER) (test code = 437) NEUTROPHILS ABSOLUTE COUNT 4.82 K/ L 1.56-6.13 (BEAKER) (test code = 670) LYMPHOCYTES ABSOLUTE COUNT 1.93 K/ L 1.18-3.74 (BEAKER) (test code = 414) MONOCYTES ABSOLUTE COUNT (BEAKER) 0.45 K/ L 0.24-0.36 H (test code = 415) EOSINOPHILS ABSOLUTE COUNT 0.10 K/ L 0.04-0.36 (BEAKER) (test code = 416) BASOPHILS ABSOLUTE COUNT (BEAKER) 0.03 K/ L 0.01-0.08 (test code = 417) IMMATURE GRANULOCYTES-RELATIVE 0 % 0-1 PERCENT (BEAKER) (test code = 2801) RAD, CHEST, 1 VIEW, NON [id number] 11:42:00Reason for exam:- >hypoxiaShould this be performed at the bedside?->Yes [facility] : 1955 Sex: FFINAL REPORT RAD, CHEST, 1 VIEW, NON DEPT INDICATION: hypoxia COMPARI SON: Prior day's exam FINDINGS: Portable frontal view of the chest. IMPRESSION: Support Lines: None Lungs and pleura: Coarsened bibasilar subsegmental atelectasis and trace left effusion. No pneumothorax.Heart and mediastinum: Stable contours. Additional findings: None. Signed: JR Velasco Robert MDReport Verified Date/Time: 03/24/2021 11:42:38 Reading Location: [facility] Radiology Reading Room BLOOD GAS, [id number] 10:55:00 Test Item Value Reference Range Interpretation Comments PH ARTERIAL (BEAKER) (test code = 7.41 7.35-7.45 383) PCO2 ARTERIAL (BEAKER) (test code 36 mm Hg 35-45 = 384) PO2 ARTERIAL (BEAKER) (test code 87 mm Hg 80-90 = 385) O2 SATURATION ARTERIAL (BEAKER) 96.7 % 96.0-97.0 (test code = 386) HCO3 ARTERIAL (BEAKER) (test code 22 mmol/L 21-29 = 388) BASE EXCESS ARTERIAL (BEAKER) -2.1 mmol/L -2.0-3.0 L (test code = 387) PATIENT TEMPERATURE (BEAKER) 37.0 (test code = 1818) FIO2 (BEAKER) (test code = 1819) 28.0 BASIC METABOLIC [id number] 04:08:00 Test Item Value Reference Range Interpretation Comments SODIUM (BEAKER) 137 meq/L 136-145 (test code = 381) POTASSIUM (BEAKER) 4.1 meq/L 3.5-5.1 (test code = 379) CHLORIDE (BEAKER) 108 meq/L 98-107 H (test code = 382) CO2 (BEAKER) (test 21 meq/L 22-29 L code = 355) BLOOD UREA NITROGEN 10 mg/dL 7-21 (BEAKER) (test code = 354) CREATININE (BEAKER) 1.05 mg/dL 0.57-1.25 (test code = 358) GLUCOSE RANDOM 83 mg/dL 70-105 (BEAKER) (test code = 652) CALCIUM (BEAKER) 8.2 mg/dL 8.4-10.2 L (test code = 697) EGFR (BEAKER) (test 52 mL/min/1.73 ESTIMA INES GFR IS code = 1092) sq m NOT ACCURATE CREATININE CLEARANCE IN PREDICTING GLOMERULAR FILTRATION RATE . ESTIMATED GFR I S NOT APPLICABLE FOR DIALYSIS PATIEN TS. Cake Icer ID - SOMMER [id number] 04:08:00 Test Item Value Reference Range Interpretation Comments MAGNESIUM (BEAKER) (test code = 1.9 mg/dL 1.6-2.6 627) Cake Icer ID - SOMMER [id number] 04:08:00 Test Item Value Reference Range Interpretation Comments PHOSPHORUS (BEAKER) (test code = 3.8 mg/dL 2.3-4.7 604) Cake Icer ID - SOMMER MCBC W/PLT COUNT & AUTO [id number] 03:30:00 Test Item Value Reference Range Interpretation Comments WHITE BLOOD CELL COUNT (BEAKER) 9.4 K/ L 3.5-10.5 (test code = 775) RED BLOOD CELL COUNT (BEAKER) 3.30 M/ L 3.93-5.22 L (test code = 761) HEMOGLOBIN (BEAKER) (test code = 10.3 GM/DL 11.2-15.7 L 410) HEMATOCRIT (BEAKER) (test code = 30.9 % 34.1-44.9 L 411) MEAN CORPUSCULAR VOLUME (BEAKER) 93.6 fL 79.4-94.8 (test code = 753) MEAN CORPUSCULAR HEMOGLOBIN 31.2 pg 25.6-32.2 (BEAKER) (test code = 751) MEAN CORPUSCULAR HEMOGLOBIN CONC 33.3 GM/DL 32.2-35.5 (BEAKER) (test code = 752) RED CELL DISTRIBUTION WIDTH 13.7 % 11.7-14.4 (BEAKER) (test code = 412) PLATELET COUNT (BEAKER) (test 174 K/CU MM 150-450 code = 756) MEAN PLATELET VOLUME (BEAKER) 11.4 fL 9.4-12.3 (test code = 754) NUCLEATED RED BLOOD CELLS 0 /100 WBC 0-0 (BEAKER) (test code = 413) NEUTROPHILS RELATIVE PERCENT 77 % (BEAKER) (test code = 429) LYMPHOCYTES RELATIVE PERCENT 16 % (BEAKER) (test code = 430) MONOCYTES RELATIVE PERCENT 6 % (BEAKER) (test code = 431) EOSINOPHILS RELATIVE PERCENT 1 % (BEAKER) (test code = 432) BASOPHILS RELATIVE PERCENT 0 % (BEAKER) (test code = 437) NEUTROPHILS ABSOLUTE COUNT 7.17 K/ L 1.56-6.13 H (BEAKER) (test code = 670) LYMPHOCYTES ABSOLUTE COUNT 1.53 K/ L 1.18-3.74 (BEAKER) (test code = 414) MONOCYTES ABSOLUTE COUNT (BEAKER) 0.53 K/ L 0.24-0.36 H (test code = 415) EOSINOPHILS ABSOLUTE COUNT 0.06 K/ L 0.04-0.36 (BEAKER) (test code = 416) BASOPHILS ABSOLUTE COUNT (BEAKER) 0.04 K/ L 0.01-0.08 (test code = 417) IMMATURE GRANULOCYTES-RELATIVE 0 % 0-1 PERCENT (BEAKER) (test code = 2801) MR, BRAIN, WITHOUT [id number] 17:11:00Unlisted Reason for Exam - Click Yes and Enter Reason Below->No [facility] : 1955 Sex: FFINAL REPORT MR, BRAIN, WITHOUT CONTRAST INDICATION: Stroke, follow up TECHNIQUE: Multiplanar, multisequence MR imaging of the brain was obtained. COMPARISON: CTA head and neck March 15, 2021 FINDINGS:Acute infarcts of the left thalamus, lentiform nucleus and left centrum semiovale. Small acute infarct of the contralateral right occipital lobe. No hemorrhagic conversion or significant mass effect. Remote infarcts of the cerebellar hemispheres and right parietal lobe. Scattered T2/FLAIR hyperintense foci within the periventricular and subcortical white matter are nonspecific, however, statistically represent chronic microvascular ischemic changes. No hydrocephalus. Orbits are within normal limits. No obstructive paranasal sinus disease. IMPRESSION: Acute infarcts of the left thalamus, lentiform nucleus and left centrum semiovale. Small acute infarct of the contralateral right occipital lobe. No hemorrhagic conversion or significant mass effect. Remote infarcts ofthe cerebellar hemispheres and right parietal lobe. Signed: Figueroa Jaeger MDReport Verified Date/Time: 03/23/2021 17:11:13 Reading Location: [address] Reading Room [id number] 14:26:00 Test Item Value Reference Range Interpretation Comments RPR SCREEN (BEAKER) (test code = Nonreactive Nonreactive 420) SARS-COV2/RT-PCR ([facility])2021-03-23 10:06:00 Test Item Value Reference Range Interpretation Comments SARS-COV2/RT-PCR (test Negative Not Detected, Negative, code = 2958722) See external report for linked test SARS-COV-[address] [facility] (test code = 1308074) Negative result for this test determines that SARS-CoV-2 RNA was not present in the specimen above the Limit of Detection (LOD). However, Negative results do not preclude SARS-CoV-2 infection and should not be used as the sole basis for treatment or patient management decisions. Negative results mustbe combined with clinical observations, patient history, and epidemiological information. A false negative result may occur if a specimen is improperly collected, transported or handled. A false negative result should be considered if patient's recent exposures or clinical presentation indicate that COVID-19 (SARS-CoV-2) is likely and diagnostic tests for other causes of illness are negative. Re-testing should be considered in cases of suspected false negatives.The limit of detection for this assay is 800 copies/mL.This SARS CoV-2 test is a real-time RT-PCR test intended for the qualitative detection of nucleic acid from SARS-CoV-2 in a nasopharyngeal swab specimen collected from individuals susp ected of COVID-19 by their healthcare provider.This test has not been Food and Drug Administration (FDA) cleared or approved. This is a modified version of an approved Emergency Use Authorization (EUA) and is in the process of review by the FDA. Once authorized by the FDA, the issued EUA will be effective until the declaration that circumstances exist justifying the authorization of the emergency use of in vitro diagnostic tests for detection and/or diagnosis of COVID-19 is terminated under Section 564(b)(2) of the Act or the EUA is revoked under Section 564(g) of the Act.Fact Sheet for Healthcare Providers:https://www.[employer]/sites/default/files/product/documents/Fact_Shee i_HS_Wvoqudfym_Xuah_XHCD-XaU-1.pdfFact Sheet for Healthcare Patients:https://www.[employer]/sites/default/files/product/ documents/Eqyf_Bfktq_Abuhdbci_Xnan_VRML-UwD-1.pdfPerforming Laboratory:[place] [address] [address], [place] [address]LIPGCZJVVM A1C 2021-03-23 08:30:00 Test Item Value Reference Range Interpretation Comments HEMOGLOBIN A1C (BEAKER) (test code = 5.4 % 4.3-6.1 368) BASIC METABOLIC [id number] 06:41:00 Test Item Value Reference Range Interpretation Comments SODIUM (BEAKER) 135 meq/L 136-145 L (test code = 381) POTASSIUM (BEAKER) 3.9 meq/L 3.5-5.1 (test code = 379) CHLORIDE (BEAKER) 105 meq/L 98-107 (test code = 382) CO2 (BEAKER) (test 23 meq/L 22-29 code = 355) BLOOD UREA NITROGEN 11 mg/dL 7-21 (BEAKER) (test code = 354) CREATININE (BEAKER) 1.42 mg/dL 0.57-1.25 H (test code = 358) GLUCOSE RANDOM 94 mg/dL 70-105 (BEAKER) (test code = 652) CALCIUM (BEAKER) 8.5 mg/dL 8.4-10.2 (test code = 697) EGFR (BEAKER) (test 37 mL/min/1.73 ESTIMA INES GFR IS code = 1092) sq m NOT ACCURATE CREATININE CLEARANCE IN PREDICTING GLOMERULAR FILTRATION RATE . ESTIMATED GFR I S NOT APPLICABLE FOR DIALYSIS PATIEN TS. Cake Icer ID - SOMMER [id number] 06:41:00 Test Item Value Reference Range Interpretation Comments MAGNESIUM (BEAKER) (test code = 2.2 mg/dL 1.6-2.6 627) Cake Icer ID - SOMMER [id number] 06:41:00 Test Item Value Reference Range Interpretation Comments PHOSPHORUS (BEAKER) (test code = 4.0 mg/dL 2.3-4.7 604) Cake Icer ID - SOMMER MLIPID [id number] 06:41:00 Test Item Value Reference Range Interpretation Comments TRIGLYCERIDES (BEAKER) (test code = 61 mg/dL 540) CHOLESTEROL (BEAKER) (test code = 137 mg/dL 631) HDL CHOLESTEROL (BEAKER) (test code 39 mg/dL = 976) LDL CHOLESTEROL CALCULATED (BEAKER) 86 mg/dL (test code = 633) Triglyceride Reference Range: Low Risk <150 Borderline 150-199 High Risk 200-499 Very High Risk >=500Cholesterol Reference Range: Low Risk <200 Borderline 200-239 High Risk >240HDL Cholesterol Reference Range: Low Risk >=60 High Risk <40LDL Cholesterol Reference Range: Optimal <100 Near Optimal 100-129 Borderline 130-159 High 160-189 Very High >=190 Cake Icer ID - SOMMER [id number] 06:31:00 Test Item Value Reference Range Interpretation Comments HOMOCYSTEINE (BEAKER) (test code 24.2 umol/L 5.1-15.4 H = 642) Cake Icer ID Cooper AYALA WTSH/FREE T4 IF [id number] 06:31:00 Test Item Value Reference Range Interpretation Comments THYROID STIMULATING HORMONE 2.219 uIU/mL 0.350-4.940 (BEAKER) (test code = 772) Cake Icer ID - JAMIE WVITAMIN B12 AND [id number] 06:31:00 Test Item Value Reference Range Interpretation Comments VITAMIN B12 (BEAKER) 229 pg/mL 213-816 (test code = 774) FOLATE (BEAKER) 7.70 ng/mL See_Comment [Automated message] (test code = 362) The system which generated this result transmitted ref erence range: >=7.00. The reference range was not used to interpr et this result as normal/abnormal . Cake Icer ID - JAMIE HODGEIGH SENSITIVITY TROPONIN [id number] 06:02:00 Test Item Value Reference Range Interpretation Comments HIGH SENSITIVITY 28 pg/ml See_Comment H [Automated message] TROPONIN I (test code = The system which [id number]) generated this result transmitted ref erence range: <=17. Th e reference range was not used to int erpret this result as normal/abnormal . Cake Icer ID - SOMMER [employer] STAT High Sensitivity Troponin-I results should be used in conjunction with other diagnostic information such as ECG, clinical observations and information, and patient symptoms to aid in the diagnosis of MA.CBC W/PLT COUNT & AUTO [id number] 05:50:00 Test Item Value Reference Range Interpretation Comments WHITE BLOOD CELL COUNT (BEAKER) 7.9 K/ L 3.5-10.5 (test code = 775) RED BLOOD CELL COUNT (BEAKER) 3.47 M/ L 3.93-5.22 L (test code = 761) HEMOGLOBIN (BEAKER) (test code = 11.0 GM/DL 11.2-15.7 L 410) HEMATOCRIT (BEAKER) (test code = 32.2 % 34.1-44.9 L 411) MEAN CORPUSCULAR VOLUME (BEAKER) 92.8 fL 79.4-94.8 (test code = 753) MEAN CORPUSCULAR HEMOGLOBIN 31.7 pg 25.6-32.2 (BEAKER) (test code = 751) MEAN CORPUSCULAR HEMOGLOBIN CONC 34.2 GM/DL 32.2-35.5 (BEAKER) (test code = 752) RED CELL DISTRIBUTION WIDTH 13.6 % 11.7-14.4 (BEAKER) (test code = 412) PLATELET COUNT (BEAKER) (test 183 K/CU MM 150-450 code = 756) MEAN PLATELET VOLUME (BEAKER) 11.4 fL 9.4-12.3 (test code = 754) NUCLEATED RED BLOOD CELLS 0 /100 WBC 0-0 (BEAKER) (test code = 413) NEUTROPHILS RELATIVE PERCENT 68 % (BEAKER) (test code = 429) LYMPHOCYTES RELATIVE PERCENT 24 % (BEAKER) (test code = 430) MONOCYTES RELATIVE PERCENT 7 % (BEAKER) (test code = 431) EOSINOPHILS RELATIVE PERCENT 1 % (BEAKER) (test code = 432) BASOPHILS RELATIVE PERCENT 1 % (BEAKER) (test code = 437) NEUTROPHILS ABSOLUTE COUNT 5.32 K/ L 1.56-6.13 (BEAKER) (test code = 670) LYMPHOCYTES ABSOLUTE COUNT 1.86 K/ L 1.18-3.74 (BEAKER) (test code = 414) MONOCYTES ABSOLUTE COUNT (BEAKER) 0.54 K/ L 0.24-0.36 H (test code = 415) EOSINOPHILS ABSOLUTE COUNT 0.07 K/ L 0.04-0.36 (BEAKER) (test code = 416) BASOPHILS ABSOLUTE COUNT (BEAKER) 0.04 K/ L 0.01-0.08 (test code = 417) IMMATURE GRANULOCYTES-RELATIVE 0 % 0-1 PERCENT (BEAKER) (test code = 2801) RAD, CHEST, 1 VIEW, NON [id number] 04:38:00Reason for exam:->strokeShould this be performed at the bedside?->Yes [facility] : 1955 Sex: FFINAL REPORT History: Stroke. Comparison: None. Findings: A single v iew of the chest is submitted. The cardiomediastinal contours are unremarkable. There is central vascular engorgement and diffuse interstitial coarsening suggesting pulmonary interstitial edema. Atypical infection is an alternative consideration. There is no focal consolidation, pneumothorax, largepleural effusion or acute bony abnormality. A chondroid matrix, nonexpansile, sclerotic lesion in the proximal left humerus is nonspecific but nonaggressive and may reflect an enchondroma. Signed: Virgilio Navarro MDReport Verified Date/Time: 03/23/2021 04:38:25 CT, CTANGIO [id number] 01:16:00Unlisted Reason for Exam - Click Yes and Enter Reason Below->No [facility] : 1955 Sex: FFINAL REPORT EXAM: CT, CTANGIO BRAIN, CT, CAROTID, ANGIO INDICATION: Stroke, follow up TECHNIQUE: Helical CT of the head without IV contrast. Postcontrast CTA of the head and CTA of the neck with IV contrast. Multiplanar reconstructed images. 3D reconstructions with MIP images were performed. This exam was performed according to our departmental dose-optimization program, which includes automated exposure control, adjustment of the mA and/or kV according to patient size and/or use of iterative reconstruction technique. COMPARISON: None. FINDINGS:CT HEAD: Parenchyma:No evidence of acute infarction. 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 No hemorrhage. No mass or mass effect. Patchy and confluent areas of hypoattenuation are present in the cerebral white matter that are nonspecific but compatible with moderate chronic microvascular ischemic changes. Extra- axial Collection: None Ventricular System: Normal Paranasal Sinuses: Predominantly clear Tympanomastoid Cavities: Normal Other: None CTA HEAD: Anterior Circulation:Right intracranial internal carotid artery (ICA): NormalRight anterior cerebral artery (NATY): NormalRight middle cerebral artery (MCA): Normal Left intracranial internal carotid artery (ICA): NormalLeft anterior cerebral artery (NATY): NormalLeft middle cerebral artery (MCA): Normal Anterior communicating artery (AComm): PresentPosterior communicating arteries (PComm): Not well-visualized bilaterally. Posterior Circulation:Right posterior cerebral artery (AIR [employer] BUILDER): NormalLeft posterior cerebral artery (A[employer]ILDER): Normal Right vertebral artery (VA): Hypoplastic without focal stenosisLeft vertebral artery (VA): NormalBasilar artery (BA): Normal Other: Normal Dural Venous Sinuses: Normal CTA NECK:Aortic arch and proximal great vessels: Atherosclerotic changes without significant narrowing. Right carotid arterial system: Minimal atherosclerotic calcifications of the carotid bulb without luminal narrowing.Left carotid arterial system: Minimal atherosclerotic calcifications of the carotid bulb without luminal narrowing.. Right vertebral artery: Mildly hypoplastic without focal stenosisLeft vertebral artery: Normal Where applicable, evaluation of internal carotid artery (ICA) stenosis was performed using NASCET-like criteria, where the site of greatest stenosis is compared to the diameter of the ICA distal to the stenosis at a point where the ICA rodriguez become parallel. Neck Soft Tissues: Unremarkable Osseous Structures: No acute osseous abnormality Included Lung Apices: Moderate centrilobular emphysema IMPRESSION: 1. No acute intracranial abnormality on noncontrast CT of the head.2. No large vessel cut off or hemodynamically significant stenosis on CTA of the head.3. No acute vascular abnormality or hemodynamically significant sten osis on CTA of the neck. If there is persistent clinical concern for intracranial pathology, MR examination is recommended for further characterization. Signed: Caro Farooq [facility] Verified Date/Time: 03/23/2021 01:16:29 CT, CAROTID, [id number] 01:16:00Unlisted Reason for Exam - Click Yes and Enter Reason Below->No [facility]AN GIMENE[facility] : 1955 Sex: FFINAL REPORT EXAM: CT, CTANGIO BRAIN, CT, CAROTID, ANGIO INDICATION: Stroke, follow up TECHNIQUE: Helical CT of the head without IV contrast. Postcontrast CTA of the head and CTA of the neck with IV contrast. Multiplanar reconstructed images. 3D reconstructions with MIP images were performed. This exam was performed according to our departmental dose-optimization program, which includes automated exposure control, adjustment of the mA and/or kV according to patient size and/or use of iterative reconstruction technique. COMPARISON: None. FINDINGS:CT HEAD: Parenchyma:No evidence of acute infarction. 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 No hemorrhage. No mass or mass effect. Patchy and confluent areas of hypoattenuation are present in the cerebral white matter that are nonspecific but compatible with moderate chronic microvascular ischemic changes. Extra- axial Collection: None Ventricular System: Normal Paranasal Sinuses: Predominantly clear Tympanomastoid Cavities: Normal Other: None CTA HEAD: Anterior Circulation:Right intracranial internal carotid artery (ICA): NormalRight anterior cerebral artery (NATY): NormalRight middle cerebral artery (MCA): Normal Left intracranial internal carotid artery (ICA): NormalLeft anterior cerebral artery (NATY): NormalLeft middle cerebral artery (MCA): Normal Anterior communicating artery (AComm): PresentPosterior communicating arteries (PComm): Not well-visualized bilaterally. Posterior Circulation:Right posterior cerebral artery (AIR BAG BUILDER): NormalLeft posterior cerebral artery (AIR BAG BUILDER): Normal Right vertebral artery (VA): Hypoplastic without focal stenosisLeft vertebral artery (VA): NormalBasilar artery (BA): Normal Other: Normal Dural Venous Sinuses: Normal CTA NECK:Aortic arch and proximal great vessels: Atherosclerotic changes without significant narrowing. Right carotid arterial system: Minimal atherosclerotic calcifications of the carotid bulb without luminal narrowing.Left carotid arterial system: Minimal atherosclerotic calcifications of the carotid bulb without luminal narrowing.. Right vertebral artery: Mildly hypoplastic without focal stenosisLeft vertebral artery: Normal Where applicable, evaluation of internal carotid artery (ICA) stenosis was performed using NASCET-like criteria, where the site of greatest stenosis is compared to the diameter of the ICA distal to the stenosis at a point where the ICA rodriguez become parallel. Neck Soft Tissues: Unremarkable Osseous Structures: No acute osseous abnormality Included Lung Apices: Moderate centrilobular emphysema IMPRESSION: 1. No acute intracranial abnormality on noncontrast CT of the head.2. No large vessel cut off or hemodynamically significant stenosis on CTA of the head.3. No acute vascular abnormality or hemodynamically significant sten osis on CTA of the neck. If there is persistent clinical concern for intracranial pathology, MR examination is recommended for further characterization. Signed: Caro Farooq [facility] Verified Date/Time: 03/23/2021 01:16:29 [id number] 00:11:00 Test Item Value Reference Range Interpretation Comments MAGNESIUM (BEAKER) (test code = 1.6 mg/dL 1.6-2.6 627) Cake Icer ID - [id number] 00:11:00 Test Item Value Reference Range Interpretation Comments PHOSPHORUS (BEAKER) (test code = 4.4 mg/dL 2.3-4.7 604) Cake Icer ID - BSHEPATIC FUNCTION [id number] 00:11:00 Test Item Value Reference Range Interpretation Comments TOTAL PROTEIN (BEAKER) (test code = 6.2 gm/dL 6.0-8.3 770) ALBUMIN (BEAKER) (test code = 1145) 3.7 g/dL 3.5-5.0 BILIRUBIN TOTAL (BEAKER) (test code 0.3 mg/dL 0.2-1.2 = 377) BILIRUBIN DIRECT (BEAKER) (test 0.1 mg/dL 0.1-0.5 code = 706) ALKALINE PHOSPHATASE (BEAKER) (test 110 U/L 40-150 code = 346) AST (SGOT) (BEAKER) (test code = 12 U/L 5-34 353) ALT (SGPT) (BEAKER) (test code = 7 U/L 6-55 347) Cake Icer ID - BSBASIC METABOLIC [id number] 00:11:00 Test Item Value Reference Range Interpretation Comments SODIUM (BEAKER) 133 meq/L 136-145 L (test code = 381) POTASSIUM (BEAKER) 4.0 meq/L 3.5-5.1 (test code = 379) CHLORIDE (BEAKER) 102 meq/L 98-107 (test code = 382) CO2 (BEAKER) (test 22 meq/L 22-29 code = 355) BLOOD UREA NITROGEN 12 mg/dL 7-21 (BEAKER) (test code = 354) CREATININE (BEAKER) 1.55 mg/dL 0.57-1.25 H (test code = 358) GLUCOSE RANDOM 110 mg/dL 70-105 H (BEAKER) (test code = 652) CALCIUM (BEAKER) 8.4 mg/dL 8.4-10.2 (test code = 697) EGFR (BEAKER) (test 33 mL/min/1.73 ESTIMA INES GFR IS code = 1092) sq m NOT ACCURATE CREATININE CLEARANCE IN PREDICTING GLOMERULAR FILTRATION RATE . ESTIMATED GFR I S NOT APPLICABLE FOR DIALYSIS PATIEN TS. Cake Icer ID - BSHIGH SENSITIVITY TROPONIN [id number] 00:09:00 Test Item Value Reference Range Interpretation Comments HIGH SENSITIVITY 22 pg/ml See_Comment H [Automated message] TROPONIN I (test code = The system which [id number]) generated this result transmitted ref erence range: <=17. Th e reference range was not used to int erpret this result as normal/abnormal . Cake Icer ID - BSThe LOGISTIC MANAGER STAT High Sensitivity Troponin-I results should be used in conjunctionwith other diagnostic information such as ECG, clinical observations and information, and patient symptoms to aid in the diagnosis of MA.B-TYPE NATRIURETIC FACTOR (BNP)2021-03-23 00:08:00 Test Item Value Reference Range Interpretation Comments B-TYPE NATRIURETIC PEPTIDE (BEAKER) 110 pg/mL 0-100 H (test code = 700) Cake Icer ID - BSLACTIC ACID, [id number] 23:58:00 Test Item Value Reference Range Interpretation Comments LACTATE BLOOD VENOUS (2) (BEAKER) 0.82 mmol/L 0.50-2.20 (test code = 2872) Cake Icer ID - [id number] 23:57:00 Test Item Value Reference Range Interpretation Comments PARTIAL THROMBOPLASTIN TIME 29.7 seconds 22.5-36.0 (BEAKER) (test code = 760) PROTHROMBIN TIME/[id number] 23:56:00 Test Item Value Reference Range Interpretation Comments PROTIME (BEAKER) 13.5 seconds 11.9-14.2 (test code = 759) INR (BEAKER) (test 1.06 See_Comment [Automat ed message] code = 370) The system [employer] generated this result transmitted ref erence range: <=5.90. The reference range was not used to int erpret this result as normal/abnormal . Effective 04/23/2019: PT Reference Range ChangeNew: 11.9-14.2 Previous: 11.7- 14.7RECOMMENDED COUMADIN/WARFARIN INR THERAPY RANGESSTANDARD DOSE: 2.0-3.0 Includes: PROPHYLAXIS for venous thrombosis, systemic embolization; TREATMENT for venous thrombosis and/or pulmonary embolus.HIGH RISK: Target INR is2.5-3.5 for patients wiht mechanical heart valves.CBC W/PLT COUNT & AUTO [id number] 23:45:00 Test Item Value Reference Range Interpretation Comments WHITE BLOOD CELL COUNT (BEAKER) 8.3 K/ L 3.5-10.5 (test code = 775) RED BLOOD CELL COUNT (BEAKER) 3.50 M/ L 3.93-5.22 L (test code = 761) HEMOGLOBIN (BEAKER) (test code = 11.0 GM/DL 11.2-15.7 L 410) HEMATOCRIT (BEAKER) (test code = 32.3 % 34.1-44.9 L 411) MEAN CORPUSCULAR VOLUME (BEAKER) 92.3 fL 79.4-94.8 (test code = 753) MEAN CORPUSCULAR HEMOGLOBIN 31.4 pg 25.6-32.2 (BEAKER) (test code = 751) MEAN CORPUSCULAR HEMOGLOBIN CONC 34.1 GM/DL 32.2-35.5 (BEAKER) (test code = 752) RED CELL DISTRIBUTION WIDTH 13.3 % 11.7-14.4 (BEAKER) (test code = 412) PLATELET COUNT (BEAKER) (test 196 K/CU MM 150-450 code = 756) MEAN PLATELET VOLUME (BEAKER) 10.8 fL 9.4-12.3 (test code = 754) NUCLEATED RED BLOOD CELLS 0 /100 WBC 0-0 (BEAKER) (test code = 413) NEUTROPHILS RELATIVE PERCENT 65 % (BEAKER) (test code = 429) LYMPHOCYTES RELATIVE PERCENT 28 % (BEAKER) (test code = 430) MONOCYTES RELATIVE PERCENT 5 % (BEAKER) (test code = 431) EOSINOPHILS RELATIVE PERCENT 1 % (BEAKER) (test code = 432) BASOPHILS RELATIVE PERCENT 1 % (BEAKER) (test code = 437) NEUTROPHILS ABSOLUTE COUNT 5.41 K/ L 1.56-6.13 (BEAKER) (test code = 670) LYMPHOCYTES ABSOLUTE COUNT 2.29 K/ L 1.18-3.74 (BEAKER) (test code = 414) MONOCYTES ABSOLUTE COUNT (BEAKER) 0.40 K/ L 0.24-0.36 H (test code = 415) EOSINOPHILS ABSOLUTE COUNT 0.09 K/ L 0.04-0.36 (BEAKER) (test code = 416) BASOPHILS ABSOLUTE COUNT (BEAKER) 0.05 K/ L 0.01-0.08 (test code = 417) IMMATURE GRANULOCYTES-RELATIVE 0 % 0-1 PERCENT (BEAKER) (test code = 2801) [U] XRAY HIP UNILATERAL MIN 2 VWS LEFT [id number] 13:33:00Images acquired, not reported on this accession number.[facility]
[2021-12-12] MEDS ORDERED: ALBUTEROL 2.5 MG/3 ML NEB SOL ONE (02:42)
[2021-12-12] MEDS ORDERED: METHYLPREDNISOLONE 125 MG INJ ONE (02:42)
[2021-12-12] MEDS ORDERED: IPRATROPIUM BROM 0.5MG/2.5ML ONE (02:43)
[2021-12-12 02:52] LABS: Absolute Lymphocytes (CBC) 1.8 K/uL (0.7-4.9); Lymphocytes % 16.7 % (15.3-44.8); MPV 9.3 fL (7.6-11.3)
[2021-12-12 02:58] LABS: Hematocrit 30.6 % (36.0-45.0); RBC Red Blood Cell Count 3.35 M/uL (3.86-4.86)
[2021-12-12 03:09] LABS: Albumin 3.7 g/dL (3.4-5.0); Bilirubin Direct 0.1 mg/dL (0-0.2); Bilirubin Total 0.4 mg/dL (0.2-1.0); Magnesium 1.6 mg/dL (1.8-2.4); Potassium 3.8 mmol/L (3.5-5.1)
[2021-12-12 03:21] LABS: Protime INR 0.98
[2021-12-12 03:31] LABS: SARS-COV-2 RT PCR NEGATIVE (NEGATIVE)
[2021-12-12] MEDS ORDERED: NA CHLORIDE 0.9% 1,000 ML ONE (04:49)
[2021-12-12 07:10] LABS: Urine Blood Negative (Negative); Urine Glucose Negative (Negative); Urine Protein Negative (Negative); Urine Specific Gravity 1.015 (1.005-1.030); Urine pH 5.5 (5.0-7.0)
--- NOTE | 2021-12-12 07:51 | RAD REPORT ---
EXAM DESCRIPTION: RAD - Chest Single View - 12/12/2021 2:56 am CLINICAL HISTORY: SOB COMPARISON: Chest Single View dated 11/19/2021; Chest Single View dated 03/22/2021; Chest Single View dated 09/08/2019; Chest Single View dated 11/24/2017 FINDINGS: Lines: None. Lungs: No evidence of edema or pneumonia. Pleural: No significant pleural effusions or pneumothorax. Cardiac: The heart size is within normal limits. Loop recorder overlies the heart. Bones: No acute fractures. Nonaggressive appearing sclerotic process in the left proximal humerus is unchanged. Other: IMPRESSION: No acute cardiopulmonary disease.
--- NOTE | 2021-12-12 07:55 | RAD REPORT ---
EXAM DESCRIPTION: CT - Chest For Pe Angio - 12/12/2021 7:41 am CLINICAL HISTORY: SOB COMPARISON: Thorax W/ Con dated 11/19/2021; Ct Low Dose Chest Screening dated 12/28/2017 FINDINGS: Chest Wall: No suspicious thyroid nodules or pathologic lymphadenopathy. Lungs: No acute abnormality. Emphysema. Pleura: No significant effusions or pneumothorax. Mediastinum/jonatan: No pathologic lymphadenopathy. Mild circumferential thickened distal esophagus sugg esting gastroesophageal reflux disease. Pulmonary arteries/Aorta: No filling defect identified. No aortic aneurysm. Heart: No significant pericardial effusion. Normal heart size. Mitral annular calcifications. Aortic root calcifications. Scattered coronary artery calcifications. Upper abdomen: No acute abnormality. Bones: No acute abnormality. Multilevel degenerative changes are present in the spine. All CT scans are performed using dose optimization technique as appropriate and may include automated exposure control or mA/KV adjustment according to patient size. IMPRESSION: Negative for pulmonary embolism. No other acute findings are present within the chest.
--- NOTE | 2021-12-12 08:06 | ER ---
Nurse's Notes [facility] Name: Irena Jones Age: 66 yrs Sex: Female : 1955 Arrival Date: 12/12/2021 Time: 01:44 Bed 17 Private MD: Diagnosis: Dyspnea;COPD/ Chronic obstructive pulmonary disease with (acute) exacerbation;COPD/ Chronic obstructive pulmonary disease, unspecified;Hypoxemia;Hypo-osmolality and hyponatremia Presentation: 12/12 02:03 Chief complaint: Patient states: I HAVE COPD AND I'VE BEEN HAVING WHEEZING ON AND OFF, kd3 BUT LAST NIGHT IT GOT WORSE. I WASN'T ABLE TO SLEEP AND I HAD TO SIT UP TO BREATHE. I CAN FEEL TIGHTNESS IN MY BACK AND SHOULDERS. Coronavirus screen: Vaccine status: Patient reports receiving the 2nd dose of the covid vaccine. Ebola Screen: No symptoms or risks identified at this time. Initial Sepsis Screen: Does the patient meet any 2 criteria? No. Patient's initial sepsis screen is negative. Does the patient have a suspected source of infection? No. Patient's initial sepsis screen is negative. Risk Assessment: Do you want to hurt yourself or someone else? Patient reports no desire to harm self or others. Onset of symptoms was December 10, 2021. 02:03 Method Of Arrival: Ambulatory kd3 02:03 Acuity: MARCELLUS 3 kd3 Triage Assessment: 02:07 General: Appears uncomfortable, Behavior is calm, cooperative, appropriate for age. kd3 Pain: Denies pain. Cardiovascular: Patient's skin is warm and dry. Respiratory: Reports shortness of breath at rest Respiratory effort is labored, Breath sounds with wheezes bilaterally. Onset: The symptoms/episode began/occurred yesterday, the patient has moderate shortness of breath. GI: No deficits noted. 03:00 Respiratory: Reports Airway is patent Respiratory effort is even, unlabored, Breath tk1 sounds with crackles bilaterally. in left lower lobe and right lower lobe. Historical: - Allergies: 02:06 PENICILLINS; kd3 - Home Meds: 02:06 amlodipine 5 mg tab 1 tab once daily [Active]; aspirin 81 mg Oral chew once daily kd3 [Active]; atorvastatin 40 mg Oral tab 1 tab once daily [Active]; venlafaxine 37.5 mg Oral tab [Active]; - PMHx: 02:06 Hypertension; Pneumonia; kd3 02:07 Cerebrovascular accident; Chronic obstructive lung disease; kd3 - PSHx: 02:06 Appendectomy; hip replacement; tubal ligation; kd3 - Immunization history:: Adult Immunizations up to date, Client reports receiving the 2nd dose of the Covid vaccine, Pneumococcal vaccine is up to date, Flu vaccine is up to date. - Social history:: Smoking status: Patient/guardian denies using tobacco, Stopped _ months ago 10. Screenin:09 Abuse screen: Denies threats or abuse. Denies injuries from another. Nutritional kd3 screening: No deficits noted. Tuberculosis screening: No symptoms or risk factors identified. Fall Risk IV access (20 points). Assessment: 02:00 General: Appears distressed, well groomed, well nourished, Behavior is cooperative, tk1 appropriate for age, restless. Pain: Denies pain. Neuro: Oriented to Assistant County Attorney are Hx of stroke in February 2021. Patient with right side deficits.. Denies. Cardiovascular: Rhythm is sinus tachycardia with unifocal PVCs. Respiratory: Reports shortness of breath Airway is patent Trachea midline Respiratory effort is even, Respiratory pattern is symmetrical, tachypnea Breath sounds with wheezes bilaterally. Onset: The symptoms/episode began/occurred just prior to arrival, the patient has moderate shortness of breath Denies. GI: No deficits noted. : No deficits noted. EENT: No deficits noted. 03:49 Reassessment: Patient breathing improved after nebulizer treatment. Patient states tk1 symptoms have improved. Respiratory: Breath sounds with crackles bilaterally. in left lower lobe and right lower lobe. 05:36 Reassessment: Assisted patient with ambulating to restroom (30') to void. Increased tk1 expiratory wheezing with any exertion. Voided approximately 150 cc clear yellow urine. Assisted back to ED RM 17 onto stretcher. Placed back on monitor. O2 sat maintained at 97% with expiratory wheezing and tachycardia. Will continue to monitor. 07:00 Reassessment: RECD REPORT FROM JAY MONSIVAIS. 66YO WF P/W SOB AND HTN. PT AMBULATING ON tk1 ROOM AIR. 08:00 Reassessment: D/C ON HOLD FOR MEDICATION ORDERS. tk1 08:10 General: Appears comfortable, Behavior is calm, cooperative, appropriate for age. ww Neuro: Level of Consciousness is awake, alert, obeys commands, Oriented to person, place, time, situation. Respiratory: Airway is patent Respiratory effort is even, Respiratory pattern is regular, symmetrical. : No deficits noted. No signs and/or symptoms were reported regarding the genitourinary system. Derm: Skin is intact. 09:15 Reassessment: Patient appears in no apparent distress at this time. No changes from ww previously documented assessment. 10:00 Reassessment: D/C ON HOLD FOR ECHO. bp 10:15 Reassessment: Patient appears in no apparent distress at this time. No changes from ww previously documented assessment. Patient and/or family updated on plan of care and expected duration. Pain level reassessed. Patient is alert, oriented x 3, equal unlabored respirations, skin warm/dry/pink. 11:40 Reassessment: Patient appears in no apparent distress at this time. No changes from ww previously documented assessment. Patient and/or family updated on plan of care and expected duration. Pain level reassessed. Patient is alert, oriented x 3, equal unlabored respirations, skin warm/dry/pink. Patient states symptoms have improved. 13:00 Reassessment: ECHO AT B/S. bp 13:48 Reassessment: Patient appears in no apparent distress at this time. No changes from ww previously documented assessment. Patient and/or family updated on plan of care and expected duration. Pain level reassessed. Patient is alert, oriented x 3, equal unlabored respirations, skin warm/dry/pink. Vital Signs: 02:03 BP 159 / 83; Pulse 59; Resp 22; Temp 98; Pulse Ox 100% on R/A; Weight 68.04 kg; Height kd3 5 ft. 5 in. (165.10 cm); Pain 0/10; 02:18 BP 132 / 84; Pulse 101 MON; Resp 24 S; Temp 98(O); Pulse Ox 98% on R/A; Pain 0/10; tk1 03:00 BP 140 / 79 LA Supine (auto/reg); Pulse 96 MON; Resp 20; Pulse Ox 100% ; Pain 0/10; tk1 03:00 BP 141 / 75 LA (auto/reg); Pulse 113; Resp 20; Temp 98; Pulse Ox 95% ; Pain 0/10; tk1 04:28 BP 125 / 67 LA Supine (auto/reg); Pulse 105 MON; Resp 20 S; Pulse Ox 92% on R/A; Pain tk1 0/10; 06:26 BP 137 / 66 LA Supine (auto/reg); Pulse 112 MON; Resp 20 S; Pulse Ox 92% on R/A; Pain tk1 0/10; 07:00 BP 135 / 66; Pulse 111; Resp 17; Pulse Ox 92% ; tk1 08:00 BP 131 / 71; Pulse 100; Resp 16; Pulse Ox 96% on R/A; tk1 09:00 BP 119 / 72; Pulse 108; Resp 18; Pulse Ox 93% on R/A; ww 10:00 BP 126 / 71; Pulse 119; Resp 18; Pulse Ox 95% on R/A; ww 11:00 BP 132 / 65; Pulse 111; Resp 18; Pulse Ox 95% on R/A; ww 12:30 BP 133 / 63; Pulse 114; Resp 16; ww 14:11 BP 130 / 64; Pulse 115; Resp 16; Pulse Ox 94% on R/A; ww 02:03 Body Mass Index 24.96 (68.04 kg, 165.10 cm) kd3 Vitals: 04:28 Cardiac Rhythm Assessment Regular Sinus rhythm W/unifocal PVC's. tk1 [place] Coma Score: 02:18 Eye Response: spontaneous(4). Verbal Response: oriented(5). Motor Response: obeys tk1 commands(6). Total: 15. ED Course: 01:44 Patient arrived in ED. wm 01:58 Martha Harvey is Primary Nurse. tk1 02:00 Kit Madden MD is Attending Physician. mh7 02:06 Triage completed. kd3 02:07 Arm band placed on right wrist. kd3 02:09 Patient has correct armband on for positive identification. Bed in low position. Call kd3 light in reach. Side rails up X2. 02:10 Inserted saline lock: 20 gauge in right forearm, using aseptic technique. tk1 02:31 Basic Metabolic Panel Sent. tk1 02:33 COVID-19/FLU A+B/RSV (Document "Date of Onset" if Symptomatic) Sent. tk1 02:33 Basic Metabolic Panel Sent. tk1 02:33 Troponin HS Sent. tk1 02:33 PT-INR Sent. tk1 02:33 NT PRO-BNP Sent. tk1 02:33 Magnesium Sent. tk1 02:33 LFT's Sent. tk1 02:33 CBC with Diff Sent. tk1 02:56 XRAY Chest (1 view) In Process Unspecified. EDMS 04:30 No provider procedures requiring assistance completed. IV is patent, is intact. tk1 07:32 Attending Physician role handed off by Kit Madden MD shad 07:32 Prabhakar Restrepo MD is Attending Physician. shad 07:42 CT Chest For PE Angio In Process Unspecified. EDMS 08:08 Rinku Avila MD is Referral Physician. shad 13:15 Echo w/ Doppler Sent. bp 14:11 intact, bleeding controlled, No redness/swelling at site. Pressure dressing applied. ww Administered Medications: 02:52 Drug: SOLU-Medrol (methylPrednisoLONE) 125 mg Route: IVP; Site: right forearm; tk1 07:34 Follow up: Response: No adverse reaction tk1 02:52 Drug: Albuterol - atroVENT (ipratropium) (3:1) (2.5 mg - 0.5 mg) 3 ml Route: Nebulizer; tk1 07:33 Follow up: Response: No adverse reaction tk1 05:14 Drug: NS 0.9% 1000 ml Route: IV; Rate: 1 bolus; Site: right forearm; tk1 13:16 Follow up: IV Status: Completed infusion; IV Intake: 1000ml bp 08:00 Drug: Xopenex (levalbuterol) 1.25 mg Route: Inhalation; bp 08:39 Drug: Aspirin 162 mg Route: PO; ww 13:16 Follow up: Response: No adverse reaction bp 08:40 Drug: predniSONE 60 mg Route: PO; ww 13:16 Follow up: Response: No adverse reaction bp 08:40 Drug: Xopenex (levalbuterol) 2.5 mg Route: Inhalation; ww 08:40 Drug: LevOfloxacin 750 mg Route: PO; ww 13:16 Follow up: Response: No adverse reaction bp 08:40 Drug: Magnesium Sulfate 2 grams Route: IVPB; Infused Over: 1 hrs; Site: right ww antecubital; 13:16 Follow up: IV Status: Completed infusion; IV Intake: 50ml bp Intake: 05:36 IV: 500ml; Total: 500ml. tk1 13:16 IV: 1000ml; Total: 1500ml. bp 13:16 IV: 50ml; Total: 1550ml. bp Output: 05:36 Urine: 150ml ([place]); Total: 150ml. tk1 Outcome: 08:06 Discharge ordered by . shad 14:09 Patient left the ED. ll1 14:11 Discharged to home via wheelchair, with family. ww 14:11 Condition: stable 14:11 Discharge instructions given to patient, significant other, Instructed on discharge instructions, follow up and referral plans. medication usage, safe sex practices, safety practices, Demonstrated understanding of instructions, follow-up care, medications, Prescriptions given X 5 Signatures: Dispatcher [employer] EDMS Prabhakar Restrepo MD MD cha Peltier, Brian, RN RN Umu Hanna RN RN ll1 Kit Madden MD MD Cecilia Samaniego Kyli RN RN kd3 Josselyn Hood RN RN Martha Mejia tk1
--- NOTE | 2021-12-12 08:07 | EDPHYS ---
Physician Documentation [facility] Name: Irena Jones Age: 66 yrs Sex: Female : 1955 Arrival Date: 12/12/2021 Time: 01:44 Bed 17 Private MD: ED Physician Prabhakar Restrepo HPI: 12/12 02:36 This 66 yrs old Female presents to ER via Ambulatory with complaints of Breathing mh7 Difficulty, High Blood Pressure. 02:36 The patient has shortness of breath at rest, with light activity. Onset: The mh7 symptoms/episode began/occurred 3 day(s) ago. Duration: The symptoms are continuous, and are steadily getting worse. The patient's shortness of breath is aggravated by coughing, exertion, light activity, is alleviated by nothing. Associated signs and symptoms: Pertinent positives: non-productive cough, Pertinent negatives: chest pain, productive cough, diaphoresis, dizziness, fever, hemoptysis, loss of consciousness, nausea, numbness in extremities, visual changes, vomiting. Severity of symptoms: At their worst the symptoms were moderate last night, in the emergency department the symptoms are unchanged. Historical: - Allergies: 02:06 PENICILLINS; kd3 - Home Meds: 02:06 amlodipine 5 mg tab 1 tab once daily [Active]; aspirin 81 mg Oral chew once daily kd3 [Active]; atorvastatin 40 mg Oral tab 1 tab once daily [Active]; venlafaxine 37.5 mg Oral tab [Active]; - PMHx: 02:06 Hypertension; Pneumonia; kd3 02:07 Cerebrovascular accident; Chronic obstructive lung disease; kd3 - PSHx: 02:06 Appendectomy; hip replacement; tubal ligation; kd3 - Immunization history:: Adult Immunizations up to date, Client reports receiving the 2nd dose of the Covid vaccine, Pneumococcal vaccine is up to date, Flu vaccine is up to date. - Social history:: Smoking status: Patient/guardian denies using tobacco, Stopped _ months ago 10. ROS: 02:36 Constitutional: Negative for fever, chills, and weight loss, Eyes: Negative for injury, mh7 pain, redness, and discharge, ENT: Negative for injury, pain, and discharge, Neck: Negative for injury, pain, and swelling, Cardiovascular: Negative for chest pain, palpitations, and edema, Abdomen/GI: Negative for abdominal pain, nausea, vomiting, diarrhea, and constipation, Back: Negative for injury and pain, : Negative for injury, bleeding, discharge, and swelling, MS/Extremity: Negative for injury and deformity, Skin: Negative for injury, rash, and discoloration, Neuro: Negative for headache, weakness, numbness, tingling, and seizure, Psych: Negative for depression, anxiety, suicide ideation, homicidal ideation, and hallucinations, Allergy/Immunology: Negative for hives, rash, and allergies, Endocrine: Negative for neck swelling, polydipsia, polyuria, polyphagia, and marked weight changes, Hematologic/Lymphatic: Negative for swollen nodes, abnormal bleeding, and unusual bruising. Exam: 02:36 Constitutional: This is a well developed, well nourished patient who is awake, alert, mh7 and in no acute distress. Head/Face: Normocephalic, atraumatic. Eyes: Pupils equal round and reactive to light, extra-ocular motions intact. Lids and lashes normal. Conjunctiva and sclera are non-icteric and not injected. Cornea within normal limits. Periorbital areas with no swelling, redness, or edema. Neck: Trachea midline, no thyromegaly or masses palpated, and no cervical lymphadenopathy. Supple, full range of motion without nuchal rigidity, or vertebral point tenderness. No Meningismus. Chest/axilla: Normal chest wall appearance and motion. Nontender with no deformity. No lesions are appreciated. Cardiovascular: Regular rate and rhythm with a normal S1 and S2. No gallops, murmurs, or rubs. Normal PMI, no JVD. No pulse deficits. 02:36 Abdomen/GI: Soft, non-tender, with normal bowel sounds. No distension or tympany. No guarding or rebound. No evidence of tenderness throughout. Back: No spinal tenderness. No costovertebral tenderness. Full range of motion. Skin: Warm, dry with normal turgor. Normal color with no rashes, no lesions, and no evidence of cellulitis. MS/ Extremity: Pulses equal, no cyanosis. Neurovascular intact. Full, normal range of motion. Neuro: Awake and alert, GCS 15, oriented to person, place, time, and situation. Cranial nerves II-XII grossly intact. Motor strength 5/5 in all extremities. Sensory grossly intact. Cerebellar exam normal. Normal gait. Psych: Awake, alert, with orientation to person, place and time. Behavior, mood, and affect are within normal limits. 02:36 Respiratory: mild respiratory distress is noted, Respirations: prolonged exhalation, that is mild, Breath sounds: rhonchi, that are mild, are scattered, wheezing: expiratory that is mild, is heard diffusely, Respiratory rate: 24 08:03 ECG was reviewed by the Attending Physician. shad Vital Signs: 02:03 BP 159 / 83; Pulse 59; Resp 22; Temp 98; Pulse Ox 100% on R/A; Weight 68.04 kg; Height kd3 5 ft. 5 in. (165.10 cm); Pain 0/10; 02:18 BP 132 / 84; Pulse 101 MON; Resp 24 S; Temp 98(O); Pulse Ox 98% on R/A; Pain 0/10; tk1 03:00 BP 140 / 79 LA Supine (auto/reg); Pulse 96 MON; Resp 20; Pulse Ox 100% ; Pain 0/10; tk1 03:00 BP 141 / 75 LA (auto/reg); Pulse 113; Resp 20; Temp 98; Pulse Ox 95% ; Pain 0/10; tk1 04:28 BP 125 / 67 LA Supine (auto/reg); Pulse 105 MON; Resp 20 S; Pulse Ox 92% on R/A; Pain tk1 0/10; 06:26 BP 137 / 66 LA Supine (auto/reg); Pulse 112 MON; Resp 20 S; Pulse Ox 92% on R/A; Pain tk1 0/10; 07:00 BP 135 / 66; Pulse 111; Resp 17; Pulse Ox 92% ; tk1 08:00 BP 131 / 71; Pulse 100; Resp 16; Pulse Ox 96% on R/A; tk1 09:00 BP 119 / 72; Pulse 108; Resp 18; Pulse Ox 93% on R/A; ww 10:00 BP 126 / 71; Pulse 119; Resp 18; Pulse Ox 95% on R/A; ww 11:00 BP 132 / 65; Pulse 111; Resp 18; Pulse Ox 95% on R/A; ww 12:30 BP 133 / 63; Pulse 114; Resp 16; ww 14:11 BP 130 / 64; Pulse 115; Resp 16; Pulse Ox 94% on R/A; ww 02:03 Body Mass Index 24.96 (68.04 kg, 165.10 cm) kd3 [place] Score: 02:18 Eye Response: spontaneous(4). Verbal Response: oriented(5). Motor Response: obeys tk1 commands(6). Total: 15. MDM: 07:24 Transition of care: After a detail discussion of the patient's case, care is mh7 transferred to Prabhakar Restrepo MD. 07:32 Patient medically screened. shad 08:06 Differential diagnosis: asthma, Bronchitis CHF exacerbation, Chronic Obstructive shad Pulmonary Disease pneumonia, Pulmonary Embolism reactive airway disease. Antibiotic administration: Levaquin given. The patient's Wells Deep Vein Thrombosis Score was calculated as follows: Heart Rate >100 BPM (1.5 Pts) Total Score: 0-2 Pts- Low Risk. The patient's pulmonary embolism risk score was calculated as follows: the patients heart rate is greater than 100 beats per minute (1.5 Pts) Total Score: 0-2 points. This patient was found to be at low risk for a pulmonary embolism by using the Well's assessment criteria. Immunization status: Pneumococcal vaccine: Influenza vaccine: Data reviewed: vital signs, nurses notes, lab test result(s), EKG, radiologic studies, CT scan, plain films. 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 Test interpretation: by ED physician or midlevel provider: ECG, plain radiologic studies. 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 12/12 02:24 Order name: Basic Metabolic Panel [facility] 12/12 02:24 Order name: CBC with Diff; Complete Time: 03:58 [facility] 12/12 02:24 Order name: LFT's; Complete Time: 03:58 [facility] 12/12 02:24 Order name: Magnesium; Complete Time: 03:58 [facility] 12/12 02:24 Order name: NT PRO-BNP; Complete Time: 03:58 [facility] 12/12 02:24 Order name: PT-INR; Complete Time: 03:58 [facility] 12/12 02:24 Order name: Troponin HS; Complete Time: 03:58 7 12/12 02:24 Order name: XRAY Chest (1 view); Complete Time: 08:00 7 12/12 02:24 Order name: Basic Metabolic Panel; Complete Time: 03:58 [facility]MS 12/12 02:26 Order name: COVID-19/FLU A+B/RSV (Document "Date of Onset" if Symptomatic); Complete 7 Time: 03:58 12/12 07:10 Order name: CT Chest For PE Angio; Complete Time: 08:00 [facility] 12/12 07:10 Order name: Urine Dipstick-Ancillary; Complete Time: 07:11 EDMS 12/12 07:11 Order name: Arterial Blood Gas [facility] 12/12 02:24 Order name: EKG; Complete Time: 02:24 [facility] 12/12 02:24 Order name: Cardiac monitoring; Complete Time: 02:32 [facility] 12/12 02:24 Order name: EKG - Nurse/Tech; Complete Time: 07:44 [facility] 12/12 02:24 Order name: IV Saline Lock; Complete Time: 02:32 [facility] 12/12 02:24 Order name: Labs collected and sent; Complete Time: 02:32 [facility] 12/12 02:24 Order name: O2 Per Protocol; Complete Time: 07:28 [facility] 12/12 10:21 Order name: Echo w/ Doppler 12/12 02:24 Order name: O2 Sat Monitoring; Complete Time: 02:32 12/12 02:24 Order name: Urine Dipstick-Ancillary (obtain specimen); Complete Time: 07:17 mh7 EC:03 Rate is 94 beats/min. Rhythm is regular. QRS Mark is Normal. RI interval is normal. QRS shad interval is normal. QT interval is normal. No Q waves. T waves are Normal. No ST changes noted. Clinical impression: NSR w/ Non-specific ST/T Changes and No evidence of ischemia. Interpreted by me. Reviewed by me. Administered Medications: 02:52 Drug: SOLU-Medrol (methylPrednisoLONE) 125 mg Route: IVP; Site: right forearm; tk1 07:34 Follow up: Response: No adverse reaction tk1 02:52 Drug: Albuterol - atroVENT (ipratropium) (3:1) (2.5 mg - 0.5 mg) 3 ml Route: Nebulizer; tk1 07:33 Follow up: Response: No adverse reaction tk1 05:14 Drug: NS 0.9% 1000 ml Route: IV; Rate: 1 bolus; Site: right forearm; tk1 13:16 Follow up: IV Status: Completed infusion; IV Intake: 1000ml bp 08:00 Drug: Xopenex (levalbuterol) 1.25 mg Route: Inhalation; bp 08:39 Drug: Aspirin 162 mg Route: PO; ww 13:16 Follow up: Response: No adverse reaction bp 08:40 Drug: predniSONE 60 mg Route: PO; ww 13:16 Follow up: Response: No adverse reaction bp 08:40 Drug: Xopenex (levalbuterol) 2.5 mg Route: Inhalation; ww 08:40 Drug: LevOfloxacin 750 mg Route: PO; ww 13:16 Follow up: Response: No adverse reaction bp 08:40 Drug: Magnesium Sulfate 2 grams Route: IVPB; Infused Over: 1 hrs; Site: right ww antecubital; 13:16 Follow up: IV Status: Completed infusion; IV Intake: 50ml bp Disposition Summary: 12/12/21 08:06 Discharge Ordered Location: Home shad Problem: new shad Symptoms: have improved shad Condition: Stable shad Diagnosis - Dyspnea shad - COPD/ Chronic obstructive pulmonary disease with (acute) exacerbation shad - COPD/ Chronic obstructive pulmonary disease, unspecified shad - Hypoxemia shad - Hypo-osmolality and hyponatremia shad Followup: shad - With: Private Physician - When: 2 - 3 days - Reason: Recheck today's complaints, Continuance of care, Re-evaluation by your physician Followup: shad - With: Rinku Avila MD - When: 2 - 3 days - Reason: Recheck today's complaints, Re-evaluation by your physician Discharge Instructions: - Discharge Summary Sheet shad - Chronic Bronchitis, Adult shad - Chronic Obstructive Pulmonary Disease shad - Chronic Obstructive Pulmonary Disease Exacerbation shad - Chronic Obstructive Pulmonary Disease, [id number] shad - Hypoxemia shad - Cough, Adult, [id number] shad - How to Use a Nebulizer, Adult shad - Cough, Adult shad - Chronic Obstructive Pulmonary Disease Exacerbation, [id number] shad - Hypoxia shad - Form - COPD Action Plan shad - Eating Plan for Chronic Obstructive Pulmonary Disease shad - COPD and Physical Activity shad Forms: - Medication Reconciliation Form shad - Thank You Letter shad - Antibiotic Education [facility] - Prescription Opioid Use [facility] Prescriptions: - magnesium oxide - take 1 tablet by ORAL route every 12 hours; 20 tablet; Refills: 0, Product [facility] Selection Permitted - Xopenex 1.25 mg/3 mL Inhalation Solution for Nebulization - inhale 1 unit by NEBULIZATION route every 6 hours As needed; 1 box; Refills: 0, [facility] Product Selection Permitted - Prednisone 20 mg Oral Tablet - take 2 tablets by ORAL route once daily for 5 days; 10 tablet; Refills: 0, [facility] Product Selection Permitted - levofloxacin 500 mg Oral Tablet - take 1 tablet by ORAL route once daily for 8-10 days; 9 tablet; Refills: 0, [facility] Product Selection Permitted - albuterol sulfate 90 mcg/actuation Inhalation HFA aerosol inhaler - inhale 2 puff by INHALATION route every 4-6 hours; 1 Pump; Refills: 0, Product [facility] Selection Permitted Signatures: Dispatcher [employer] EDPrabhakar Barragan MD MD cha Peltier, Brian RN RN bp Kit Madden MD MD mh7 Marcy Luo RN RN kd3 Josselyn Hood RN RN ww Martha Harvey tk1 Corrections: (The following items were deleted from the chart) 10:54 10:21 EC Echo Doppler W/Color Flow+[id number] ordered. [facility]
[2021-12-12 08:15] LABS: Arterial Blood Carboxyhemoglob 1.5 % (0-1.5); Blood Gas Oxyhemoglobin 93.8 % (94-97); Blood O2 Saturation 96.1 % (92-98.5)
[2021-12-12] MEDS ORDERED: ASPIRIN EC 81 MG TAB PO ONE (08:28)
[2021-12-12] MEDS ORDERED: levoFLOXacin 750 MG TAB ONE (08:28)
[2021-12-12] MEDS ORDERED: LEVALBUTEROL 1.25 MG/3 ML NEB ONE (08:28)
[2021-12-12] MEDS ORDERED: predniSONE 20 MG TAB ONE (08:28)
[2021-12-12] MEDS ORDERED: Magnesium Sulfate 2gm IVPB 2 G/50 ML BAG IV ONE (08:30)
[2021-12-12 14:17] VITALS: TEMP 98
[2021-12-12 14:27] VITALS: BP 131/71; O2SAT 96
--- NOTE | 2021-12-13 08:36 | ECHO ---
HEIGHT: 5 ft 5 in WEIGHT: 150 lb 0 oz DATE OF STUDY: 12/12/[address]: Prabhakar Restrepo MD 2-DIMENSIONAL: YES M.MODE: YES DOPPLER: YES COLOR FLOW: YES TDS: YES PORTABLE: DEFINITY: BUBBLE STUDY: DIAGNOSIS: BREATHING DIFFICULTY CARDIAC HISTORY: CATHERIZATION: NO SURGERY: NO PROSTHETIC VALVE: NO PACEMAKER: NO MEASUREMENTS (cm) DIASTOLIC (NORMALS) SYSTOLIC (NORMALS) IVSd 1.0 (0.6-1.2) LA Diam 2.3 (1.9-4.0) LVEF 71% LVIDd 4.1 (3.5-5.7) LVIDs 2.4 (2.0-3.5) %FS 40% LVPWd 1.1 (0.6-1.2) Ao Diam 2.9 (2.0-3.7) 2 DIMENSIONAL ASSESSMENT: RIGHT ATRIUM: NORMAL LEFT ATRIUM: NORMAL RIGHT VENTRICLE: NORMAL LEFT VENTRICLE: HYPERDYNAMIC TRICUSPID VALVE: MILD TRICUSPID REGURGITATION MITRAL VALVE: MODERATE MITRAL STENOSIS AND MILD MITRAL REGURGITATION PULMONIC VALVE: NORMAL AORTIC VALVE: NORMAL PERICARDIAL EFFUSION: NONE AORTIC ROOT: NORMAL LEFT VENTRICULAR WALL MOTION: NORMAL DOPPLER/COLOR FLOW: SEE BELOW COMMENTS: POOR WINDOWS. LEFT VENTRICLE IS HYPERDYNAMIC WITH EJECTION FRACTION OF GREATER THAN 65%. MILD TRICUSPID REGURGITATION. RECOMMEND TRANSESOPHEGEAL ECHOCARDIOGRAM. TECHNOLOGIST: YELENA SAENZ
--- NOTE | 2021-12-14 07:32 | EKG ---
Test Date: 2021-12-12 Test Time: 02:45:01 Cobbler Sole: SRINIVAS MEASUREMENT RESULTS: Intervals: Rate: 94 VT: 172 QRSD: 66 QT: 372 QTc: 465 [place]: P: 54 VT: 172 QRS: 10 T: 52 INTERPRETIVE STATEMENTS: Normal sinus rhythm Low voltage QRS Borderline ECG Compared to ECG 11/19/2021 19:09:33 Sinus tachycardia no longer present Fusion complex(es) no longer present Electronically Signed On 12-14-21 07:26:43 TECHNOLOGY RECRUITER by Xavi Davidson
== END 2021-12-12 14:09 | disposition home or self-care (01) ==
LOC: ER 01:39
DX: J44.1 Chronic obstructive pulmonary disease with (acute) exacerbation (principal); R09.02 Hypoxemia; E87.1 Hypo-osmolality and hyponatremia; Z20.822 Contact with and (suspected) exposure to COVID-19; I10 Essential (primary) hypertension; Z88.0 Allergy status to penicillin
CPT/HCPCS: 93005; 93306; 85025; 80048; 36415; 83735; 85610; 80076; 81003; 84484; 83880; 0241U; 71275; 71045; 82805; Q9967; J3475; J7030; J2930; 94640; 96361; 96365; 96366; 96375; 99285; J7512

== ENCOUNTER 2021-12-13 01:35 | Observation (INO) | payer OTHER ==
--- OUTSIDE RECORDS SUMMARY | 2021-12-13 01:47 | XMS REPORT | Continuity of Care Document ---
:1955 Author Organization [facility] t Address [address] [place] [address] Care Team Providers Name Role Phone Fannie Lamar MD Primary Care Physician [phone] MEGHA MA Attending Clinician Unavailable Brooks Rodrigez MD Attending Clinician SUJEY Attending Clinician Unavailable VALERIE Attending Clinician Unavailable LEXII Attending Clinician Unavailable DR BRODIE Attending Clinician Unavailable JANEEN Attending Clinician Unavailable RAS Attending Clinician Unavailable Moira MASCRORO Attending Clinician Unavailable MEGHA MA Admitting Clinician Unavailable DR BRODIE Admitting Clinician Unavailable Moira MASCORRO Admitting Clinician Unavailable Payers Payer Name Policy Type Policy Number Effective Date Expiration Date S melissa AETNA MEDICARE HMO [id number] POS MEDICARE PART A \T\ B [id number] - MEDICARE Problems Condition Condition Condition Status [...] Date Clinician Penicill Propensi Active 2020-11 Rash, [facility] ins ty to 01-15 [facility] adverse 00:00: of reaction 00 Medicin s to e drug PENICILL Allergy Active [facility] drug Active [facility] allergy [facility] [place] [facility] Family History Family Member Diagnosis Comments Start Date Stop Date Source Mother Adopted [facility] Physicians Father Adopted [facility] Social History Social Habit Start Date Stop Date Quantity Comments Source Tobacco use and 2021-11-14 2021-11-14 Former smokeless [facility] exposure 00:00:00 00:00:00 tobacco user of Medicine Sex Ass[birth year] [facility] 00:00:00 00:00:00 of Medicine Smoking Status Start Date Stop Date Source Current every day [facility] smoker Physicians Ex-smoker 2021-11-14 00:00:00 2021-11-14 00:00:00 [facility] ollege of Medicine Medications Ordered Filled Start Stop Current Ordering Indication Dosage Frequency Signature Comments Components Source Medication Medication Date Date Medication? Clinician (SIG) Name Name atorjennifer 2020-11 Yes 40mg Take 40 mg [facility] n (LIPITOR) 2-20 by mouth Ramiro ege 40 MG 15:05: daily. of tablet 35 Medicin e amlodipine 2020-11 Yes 5mg Take 5 mg [facility] (NORVASC) 5 2-20 by mouth Ramiro ege MG tablet 15:05: daily. of 35 Medicin e venlafaxine 2020-11 Yes 37.5mg Take 37.5 [facility] (EFFEXOR) 2-20 mg by [place] 37.5 MG 15:05: mouth of tablet 35 daily. Medicin e Aspirin 81 2020-11 Yes 81mg Take 81 mg [facility] MG tablet 2-20 by mouth Colleg e 15:05: daily. of 35 Medicin e Multiple 2020-11 Yes Take by [facility] r Vitamin 2-20 mouth [place] (MULTI 15:05: daily. of VITAMIN 35 Medicin DAILY) TABS e Klor-Con 8 Klor-Con 8 Yes Uni vers MEQ Oral MEQ Oral ity of Tablet Tablet [place] [facility] Release Release ans Irbesartan Irbesartan Yes Uni vers 300 MG Oral 300 MG Oral i ty of Tablet Tablet [place] [facility] Venlafaxine Venlafaxine Yes U nivers [...] Source Name Name Destinee SARS-CoV-2 2021-11-14 Completed [facility] Vaccination 00:00:00 of Medicine Vital Signs Vital Name Observation Time Observation Value Comments Source HEIGHT 2021-03-22 23:15:00 165.1 cm WEIGHT 2021-03-22 23:15:00 60.9 kg Systolic blood 2021-11-14 21:02:00 133 mm[Hg] [facility] Medicine Diastolic blood 2021-11-14 21:02:00 80 mm[Hg] [facility] Medicine Heart rate 2021-11-14 21:02:00 77 /min [facility] Respiratory rate 2021-11-14 21:02:00 16 /min [facility] Body height 2021-11-14 21:02:00 165.1 cm [facility] Body weight 2021-11-14 21:02:00 71.668 kg [facility] BMI 2021-11-14 21:02:00 26.29 kg/m2 [facility] Oxygen saturation in 2021-11-14 21:02:00 99 /min [facility] Arterial blood by [facility] Pulse oximetry HEIGHT 2021-03-22 23:15:00 165.1 cm WEIGHT 2021-03-22 23:15:00 60.9 kg BP Systolic 2018-04-03 14:00:00 107 mm[Hg] [facility] Physician s BP Diastolic 2018-04-03 14:00:00 60 mm[Hg] [facility]i ty [facility] Physician s Height 2018-04-03 14:00:00 65 [in_us] [facility]i ty [facility] Physician s Weight 2018-04-03 14:00:00 142 [lb_av] [facility]i ty [facility] Physician s Body Mass Index 2018-04-03 14:00:00 23.63 kg/m2 Unive rsity of Calculated [place] [facility] s Heart Rate 2018-04-03 14:00:00 67 /min Universi ty [facility] Physician s BP Systolic 2018-02-27 15:54:00 122 mm[facility]Hg[facility] Physician s BP Diastolic 2018-02-27 15:54:00 64 mm[Hg] [facility] Physician s Height 2018-02-27 15:54:00 65 [in_us] [facility] Physician s Weight 2018-02-27 15:54:00 142 [lb_av] [facility] Physician s Body Mass Index 2018-02-27 15:54:00 23.63 kg/m2 [facility] Physician s Heart Rate 2018-02-27 15:54:00 82 /min [facility] Physician s Procedures Procedure Date / Time Performing Clinician Source Performed ELECTROCARDIOGRAM COMPLETE 2021-11-14 21:40:01 Edwin Rodrigez [facility] [U] XRAY HIP UNILATERAL MIN 2018-02-19 00:00:00 [facility] 2 VWS LEFT [id number] Physicians History of [facility] Plan of Care Planned Activity Planned Date Details Comments Source Future Scheduled 2021-11-16 Screening for [facility] Col lege of Test 08:24:47 malignant neoplasm of Medici ne colon (procedure) [code = 291876723] Future Scheduled 2021-11-16 Screening for [facility] Col [facility]ge of Test 08:24:47 malignant neoplasm of Medici ne breast (procedure) [code = 992362171] Future Scheduled 2021-11-16 TETANUS SHOT (ADULT) [facility] of Test 08:24:47 [code = TETANUS SHOT Medicin e (ADULT)] Future Scheduled 2021-11-16 BMI FOLLOW UP PLAN [facility] of Test 08:24:47 [code = BMI FOLLOW UP Medici ne PLAN] Future Scheduled 2021-11-16 Hepatitis C screening [facility] of Test 08:24:47 (procedure) [code = Medicine 619978297] Future Scheduled 2021-11-16 ZOSTER VACCINE (1 of [facility] of Test 08:24:47 2) [code = ZOSTER Medicine VACCINE (1 of 2)] Future Scheduled 2021-11-16 FALL SCREEN [code = [facility] of Test 08:24:47 FALL SCREEN] Medicine Future Scheduled 2021-11-16 Screening for [facility] of Test 08:24:47 osteoporosis Medicine (procedure) [code = 961656773] Future Scheduled 2021-11-16 Pneumococcal 65+ (1 of [facility] Test 08:24:47 1 - PPSV23) [code = Medicine Pneumococcal 65+ (1 of 1 - PPSV23)] Future Scheduled 2021-11-16 MEDICARE AWV (Initial) [facility] Test 08:24:47 [code = MEDICARE AWV Medicin e (Initial)] Future Scheduled 2021-11-16 FLU VACCINE > 6 MONTHS [facility] Test 08:24:47 [code = FLU VACCINE > Medici ne 6 MONTHS] Encounters Start End Encounter Admission Attending Care Care Encounter Source Date/Time Date/Time Type Type Clinicians Facility Department ID 2021-03-22 [facility] Neurology [id number] [facility] 22:50:00 CELESTE 2021-11-14 2021-11-14 Office AIDA Rodrigez [id number] [place] [address] 15:00:00 16:24:08 Visit Mihail AMBULATOR [id number] [place] Brooks Y [id number] of [id number] Medi chris 375 e 2021-11-14 2021-11-14 Outpatient [facility] [id number] [address] [place] [address] 15:49:12 15:49:12 Colleg e of Medicin e 2021-10-04 2021-10-04 Emergency EGBERS, [facility] 064 [id number] [facility] 00:00:00 00:00:00 EMAN[address] 2021-03-22 2021-03-22 Outpatient [facility] [id number] [facility] 00:00:00 00:00:[address] 2021-02-28 2021-02-28 Outpatient VALERIE, [facility] [id number] [facility] 00:00:00 00:00:[address] 2021-02-04 2021-02-04 Outpatient [facility] [id number] [facility] 00:00:00 00:00:[address] 2020-08-09 2020-08-09 Outpatient BLADE SHULTZ [facility] [id number] [facility] 00:00:00 00:00:[address] 2020-08-09 2020-08-09 Outpatient BLADE SHULTZ [facility] [id number] [facility] 00:00:00 00:00:00 455 [facility] i 2018-09-20 2018-09-20 Outpatient Steve CALLOWAY [facility] [id number] [place] 04:27:00 06:40:00 GREGORIO [facility] [place] 2018-03-21 2018-03-21 Appointmen DON VERNON [facility] [id number] Univers 14:00:00 14:00:00 t; KARISHMA VERNON M.D. Ortho and ity of KARISHMA, Spine S [facility] [place] ans 2018-02-19 2018-02-19 Appointmen DON VERNON [facility] [id number] Univers 13:00:00 13:00:00 t; KARISHMA VERNON M.D. Ortho and ity of KARISHMA, Spine [facility] Medical Physici [place] ans 2016-08-23 2016-08-[facility] [id number] Univers 15:15:00 15:15:00 t; AGUSTIN MCGINNIS [place] [facility] ans 2016-06-21 2016-06-21 Outpatient Steve MASCORRO, [facility] [place] [id number] [place] 09:51:00 23:59:00 [facility] Results Test Description Test Time Test Comments [...] NOT 1092) ACCURATE CRE ATININE CLEARANCE IN DE EDICTING GLOMERULAR FILT RATION RATE. ESTIMATED GFR IS NOT APPLICABLE FOR DIALYSIS PATIENTS. Government Teacher ID - [id number] 06:10:00 Test Item Value Reference Range Interpretation Comments MAGNESIUM (BEAKER) (test code = 2.0 mg/dL 1.6-2.6 627) Government Teacher ID - [id number] 06:10:00 Test Item Value Reference Range Interpretation Comments PHOSPHORUS (BEAKER) (test code = 4.5 mg/dL 2.3-4.7 604) Government Teacher ID - EDASICBC W/PLT COUNT & AUTO [id number] 05:44:00 Test Item Value Reference Range Interpretation [...] (BEAKER) (test code = 2801) BASIC METABOLIC [id number] 06:02:00 Test Item Value Reference Range Interpretation [...] S NOT APPLICABLE FOR DIALYSIS PATIEN TS. Government Teacher ID - SOMMER [id number] 06:02:00 Test Item Value Reference Range Interpretation Comments MAGNESIUM (BEAKER) (test code = 2.0 mg/dL 1.6-2.6 627) Government Teacher ID - SOMMER [id number] 06:02:00 Test Item Value Reference Range Interpretation Comments PHOSPHORUS (BEAKER) (test code = 5.0 mg/dL 2.3-4.7 H 604) Government Teacher ID Cooper NOVOA MCBC W/PLT COUNT & AUTO [id number] 05:25:00 Test Item Value Reference Range Interpretation [...] PERCENT (BEAKER) (test code = 2801) SARS-COV2/RT-PCR ([facility])2021-03-31 04:36:00 Test Item Value Reference Range Interpretation Comments SARS-COV2/RT-PCR (test Negative Not Detected, Negative, code = 0828784) See external report for linked test SARS-COV-2 PERFORMING LAB [facility]OL[facility] (test code = 7190441) Negative result for this test determines that [...] the Trevino SARS-CoV-2 assay.Fact Sheet for Healthcare Providers:https://www.[employer].trevino/marilee/ FW_XIJD-HkA-0_LVZ_Vklh_Eugrd_96-090619.pdfFact Sheet for Healthcare Patients:https://www.[employer] [facility] [employer] liliana/marilee/PF_LXBR-XxG-2_Uuuevlf_Ffyt_Xrtst_VC_63-146046L0.pdfPerforming Laboratory:[facility] [place] [address] BASIC METABOLIC [id number] 07:10:00 Test Item Value Reference Range Interpretation [...] S NOT APPLICABLE FOR DIALYSIS PATIEN TS. Government Teacher ID - ALINE [id number] 07:10:00 Test Item Value Reference Range Interpretation Comments MAGNESIUM (BEAKER) (test code = 2.0 mg/dL 1.6-2.6 627) Government Teacher ID - ALINE [id number] 07:10:00 Test Item Value Reference Range Interpretation Comments PHOSPHORUS (BEAKER) (test code = 4.2 mg/dL 2.3-4.7 604) Government Teacher ID - ALINE LBASIC METABOLIC [id number] 05:46:00 Test Item Value Reference Range Interpretation [...] S NOT APPLICABLE FOR DIALYSIS PATIEN TS. Government Teacher ID - SOMMER [id number] 05:46:00 Test Item Value Reference Range Interpretation Comments MAGNESIUM (BEAKER) (test code = 1.9 mg/dL 1.6-2.6 627) Government Teacher ID - SOMMER [id number] 05:46:00 Test Item Value Reference Range Interpretation Comments PHOSPHORUS (BEAKER) (test code = 4.4 mg/dL 2.3-4.7 604) Government Teacher ID - SOMMER MCBC W/PLT COUNT & AUTO [id number] 05:11:00 Test Item Value Reference Range Interpretation [...] 0-1 PERCENT (BEAKER) (test code = 2801) [id number] 06:01:00 Test Item Value Reference Range Interpretation Comments MAGNESIUM (BEAKER) 2.0 mg/dL 1.6-2.6 Specimen slightly (test code = 627) hemolyzed Government Teacher ID - [id number] 06:01:00 Test Item Value Reference Range Interpretation Comments PHOSPHORUS (BEAKER) 4.7 mg/dL 2.3-4.7 Specimen slightly (test code = 604) hemolyzed Government Teacher ID - DBBASIC METABOLIC [id number] 06:01:00 Test Item Value Reference Range Interpretation [...] S NOT APPLICABLE FOR DIALYSIS PATIEN TS. Government Teacher ID - DBCBC W/PLT COUNT & AUTO [id number] 05:29:00 Test Item Value Reference Range Interpretation [...] (BEAKER) (test code = 2801) BASIC METABOLIC [id number] 07:42:00 Test Item Value Reference Range Interpretation [...] S NOT APPLICABLE FOR DIALYSIS PATIEN TS. Government Teacher ID - [id number] 07:42:00 Test Item Value Reference Range Interpretation Comments MAGNESIUM (BEAKER) (test code = 1.9 mg/dL 1.6-2.6 627) Government Teacher ID - [id number] 07:42:00 Test Item Value Reference Range Interpretation Comments PHOSPHORUS (BEAKER) (test code = 4.8 mg/dL 2.3-4.7 H 604) Government Teacher ID - DBCBC W/PLT COUNT & AUTO [id number] 07:18:00 Test Item Value Reference Range Interpretation [...] (BEAKER) (test code = 2801) BASIC METABOLIC [id number] 04:52:00 Test Item Value Reference Range Interpretation [...] S NOT APPLICABLE FOR DIALYSIS PATIEN TS. Government Teacher ID - [id number] 04:52:00 Test Item Value Reference Range Interpretation Comments MAGNESIUM (BEAKER) (test code = 1.8 mg/dL 1.6-2.6 627) Government Teacher ID - [id number] 04:52:00 Test Item Value Reference Range Interpretation Comments PHOSPHORUS (BEAKER) (test code = 4.6 mg/dL 2.3-4.7 604) Government Teacher ID - ADMINCBC W/PLT COUNT & AUTO [id number] 04:26:00 Test Item Value Reference Range Interpretation [...] (BEAKER) (test code = 2801) BASIC METABOLIC [id number] 05:41:00 Test Item Value Reference Range Interpretation [...] S NOT APPLICABLE FOR DIALYSIS PATIEN TS. Government Teacher ID - [id number] 05:41:00 Test Item Value Reference Range Interpretation Comments MAGNESIUM (BEAKER) (test code = 1.9 mg/dL 1.6-2.6 627) Government Teacher ID - [id number] 05:41:00 Test Item Value Reference Range Interpretation Comments PHOSPHORUS (BEAKER) (test code = 3.6 mg/dL 2.3-4.7 604) Government Teacher ID - EDASICBC W/PLT COUNT & AUTO [id number] 05:15:00 Test Item Value Reference Range Interpretation [...] = 2801) RAD, CHEST, 1 VIEW, NON [id number] 11:42:00Reason for exam:- >hypoxiaShould this be performed at the bedside?->Yes [facility] : 1955 Sex: [...] MDReport Verified Date/Time: 03/24/2021 11:42:38 Reading Location: [facility] Radiology Reading Room BLOOD GAS, [id number] 10:55:00 Test Item Value Reference Range Interpretation [...] (test code = 1819) 28.0 BASIC METABOLIC [id number] 04:08:00 Test Item Value Reference Range Interpretation [...] S NOT APPLICABLE FOR DIALYSIS PATIEN TS. Government Teacher ID - SOMMER [id number] 04:08:00 Test Item Value Reference Range Interpretation Comments MAGNESIUM (BEAKER) (test code = 1.9 mg/dL 1.6-2.6 627) Government Teacher ID - SOMMER [id number] 04:08:00 Test Item Value Reference Range Interpretation Comments PHOSPHORUS (BEAKER) (test code = 3.8 mg/dL 2.3-4.7 604) Government Teacher ID - SOMMER MCBC W/PLT COUNT & AUTO [id number] 03:30:00 Test Item Value Reference Range Interpretation [...] (test code = 2801) MR, BRAIN, WITHOUT [id number] 17:11:00Unlisted Reason for Exam - Click Yes and Enter Reason Below->No [facility] : 1955 Sex: FFINAL [...] MDReport Verified Date/Time: 03/23/2021 17:11:13 Reading Location: [address] Reading Room [id number] 14:26:00 Test Item Value Reference Range Interpretation Comments RPR SCREEN (BEAKER) (test code = Nonreactive Nonreactive 420) SARS-COV2/RT-PCR ([facility])2021-03-23 10:06:00 Test Item Value Reference Range Interpretation Comments SARS-COV2/RT-PCR (test Negative Not Detected, Negative, code = 4472131) See external report for linked test SARS-COV-2 PERFORMING LAB [facility] (test code = 4445588) Negative result for this test determines that [...] 564(g) of the Act.Fact Sheet for Healthcare Providers:https://www.AccessData/sites/default/files/product/documents/Fact_Shee v_QC_Cbatgpvdf_Dzsc_XHBD-IdX-7.pdfFact Sheet for Healthcare Patients:https://www.[employer]/sites/default/files/product/ documents/Jelb_Dxlvc_Lwxzyzie_Eefp_GNPB-HoU-6.pdfPerforming Laboratory:[place] [address], [place] [id number] 2021-03-23 08:30:00 Test Item Value Reference Range Interpretation Comments HEMOGLOBIN A1C (BEAKER) (test code = 5.4 % 4.3-6.1 368) BASIC METABOLIC [id number] 06:41:00 Test Item Value Reference Range Interpretation [...] S NOT APPLICABLE FOR DIALYSIS PATIEN TS. Government Teacher ID - SOMMER [id number] 06:41:00 Test Item Value Reference Range Interpretation Comments MAGNESIUM (BEAKER) (test code = 2.2 mg/dL 1.6-2.6 627) Government Teacher ID - SOMMER [id number] 06:41:00 Test Item Value Reference Range Interpretation Comments PHOSPHORUS (BEAKER) (test code = 4.0 mg/dL 2.3-4.7 604) Government Teacher ID - SOMMER MLIPID [id number] 06:41:00 Test Item Value Reference Range Interpretation [...] Borderline 130-159 High 160-189 Very High >=190 Government Teacher ID - SOMMER [id number] 06:31:00 Test Item Value Reference Range Interpretation Comments HOMOCYSTEINE (BEAKER) (test code 24.2 umol/L 5.1-15.4 H = 642) Government Teacher ID Cooper AYALA WTSH/FREE T4 IF [id number] 06:31:00 Test Item Value Reference Range Interpretation Comments THYROID STIMULATING HORMONE 2.219 uIU/mL 0.350-4.940 (BEAKER) (test code = 772) Government Teacher ID - JAMIE WVITAMIN B12 AND [id number] 06:31:00 Test Item Value Reference Range Interpretation Comments VITAMIN B12 (BEAKER) 229 pg/mL 213-816 (test code = 774) FOLATE (BEAKER) 7.70 ng/mL See_Comment [Automated message] (test code = 362) The system which generated this result transmitted ref erence range: >=7.00. The reference range was not used to interpr et this result as normal/abnormal . Government Teacher ID - JAMIE HODGEIGH SENSITIVITY TROPONIN [id number] 06:02:00 Test Item Value Reference Range Interpretation Comments HIGH SENSITIVITY 28 pg/ml See_Comment H [Automated message] TROPONIN I (test code = The system which 0868144) generated this result transmitted ref erence range: <=17. Th e reference range was not used to int erpret this result as normal/abnormal . Government Teacher ID - SOMMER Suazoe SOCIAL MEDIA ANALYST STAT High Sensitivity Troponin-I results should be used in conjunction with other diagnostic information such as ECG, clinical observations and information, and patient symptoms to aid in the diagnosis of ID.CBC W/PLT COUNT & AUTO [id number] 05:50:00 Test Item Value Reference Range Interpretation [...] = 2801) RAD, CHEST, 1 VIEW, NON [id number] 04:38:00Reason for exam:->strokeShould this be performed at the bedside?->Yes [facility] : 1955 Sex: FFINAL [...] MDReport Verified Date/Time: 03/23/2021 04:38:25 CT, CTANGIO [id number] 01:16:00Unlisted Reason for Exam - Click Yes and Enter Reason Below->No [facility] : 1955 Sex: [...] the right occipital lobe of the right ORACLE APPLICATION ARCHITECT territory. No hemorrhage. No mass or mass [...] well-visualized bilaterally. Posterior Circulation:Right posterior cerebral artery (ORACLE APPLICATION ARCHITECT): NormalLeft posterior cerebral artery (ORACLE APPLICATION ARCHITECT): Normal Right vertebral artery (VA): Hypoplastic without [...] recommended for further characterization. Signed: Caro Farooq [facility] Verified Date/Time: 03/23/2021 01:16:29 CT, CAROTID, [id number] 01:16:00Unlisted Reason for Exam - Click Yes and Enter Reason Below->No [facility]PHAN GIMENEZ : 1955 Sex: FFINAL [...] the right occipital lobe of the right ORACLE APPLICATION ARCHITECT territory. No hemorrhage. No mass or mass [...] well-visualized bilaterally. Posterior Circulation:Right posterior cerebral artery (ORACLE APPLICATION ARCHITECT): NormalLeft posterior cerebral artery (ORACLE APPLICATION ARCHITECT): Normal Right vertebral artery (VA): Hypoplastic without [...] recommended for further characterization. Signed: Caro Farooq [facility] Verified Date/Time: 03/23/2021 01:16:29 [id number] 00:11:00 Test Item Value Reference Range Interpretation Comments MAGNESIUM (BEAKER) (test code = 1.6 mg/dL 1.6-2.6 627) Government Teacher ID - [id number] 00:11:00 Test Item Value Reference Range Interpretation Comments PHOSPHORUS (BEAKER) (test code = 4.4 mg/dL 2.3-4.7 604) Government Teacher ID - BSHEPATIC FUNCTION [id number] 00:11:00 Test Item Value Reference Range Interpretation [...] (test code = 7 U/L 6-55 347) Government Teacher ID - BSBASIC METABOLIC [id number] 00:11:00 Test Item Value Reference Range Interpretation [...] S NOT APPLICABLE FOR DIALYSIS PATIEN TS. Government Teacher ID - BSHIGH SENSITIVITY TROPONIN [id number] 00:09:00 Test Item Value Reference Range Interpretation Comments HIGH SENSITIVITY 22 pg/ml See_Comment H [Automated message] TROPONIN I (test code = The system which 7873684) generated this result transmitted ref erence range: <=17. Th e reference range was not used to int erpret this result as normal/abnormal . Government Teacher ID - BSThe SOCIAL MEDIA ANALYST STAT High Sensitivity Troponin-I results should be used in conjunctionwith other diagnostic information such as ECG, clinical observations and information, and patient symptoms to aid in the diagnosis of ID.B-TYPE NATRIURETIC FACTOR (BNP)2021-03-23 00:08:00 Test Item Value Reference Range Interpretation Comments B-TYPE NATRIURETIC PEPTIDE (BEAKER) 110 pg/mL 0-100 H (test code = 700) Government Teacher ID - BSLACTIC ACID, [id number] 23:58:00 Test Item Value Reference Range Interpretation Comments LACTATE BLOOD VENOUS (2) (BEAKER) 0.82 mmol/L 0.50-2.20 (test code = 2872) Government Teacher ID - [id number] 23:57:00 Test Item Value Reference Range Interpretation Comments PARTIAL THROMBOPLASTIN TIME 29.7 seconds 22.5-36.0 (BEAKER) (test code = 760) PROTHROMBIN TIME/[id number] 23:56:00 Test Item Value Reference Range Interpretation Comments PROTIME (BEAKER) 13.5 seconds 11.9-14.2 (test code = 759) INR (BEAKER) (test 1.06 See_Comment [Automat ed message] code = 370) The system [employer] generated this result transmitted ref erence range: [...] mechanical heart valves.CBC W/PLT COUNT & AUTO [id number] 23:45:00 Test Item Value Reference Range Interpretation [...] XRAY HIP UNILATERAL MIN 2 VWS LEFT [id number] 13:33:00Images acquired, not reported on this accession number.[facility]
[2021-12-13 02:50] LABS: Arterial Blood Carboxyhemoglob 1.4 % (0-1.5); Blood Gas Oxyhemoglobin 91.5 % (94-97); Blood O2 Saturation 93.5 % (92-98.5)
[2021-12-13 02:56] LABS: Hematocrit 30.3 % (36.0-45.0); Lymphocytes % 3.7 % (15.3-44.8); MPV 8.9 fL (7.6-11.3); RBC Red Blood Cell Count 3.31 M/uL (3.86-4.86)
[2021-12-13 03:05] LABS: Protime INR 0.97
[2021-12-13 03:18] LABS: ALT/SGPT 28 U/L (12-78); AST/SGOT 32 U/L (15-37); Albumin 3.9 g/dL (3.4-5.0); Alkaline Phosphatase 101 U/L (45-117); BUN Blood Urea Nitrogen 16 mg/dL (7-18); Bicarbonate 22 mmol/L (21-32); Bilirubin Direct 0.2 mg/dL (0-0.2); Bilirubin Total 0.4 mg/dL (0.2-1.0); Glucose Level 130 mg/dL (74-106); Magnesium 2.3 mg/dL (1.8-2.4); NT PRO-BNP 2835 pg/mL (<125); Potassium 4.7 mmol/L (3.5-5.1); Protein, Total 7.3 g/dL (6.4-8.2); Sodium Level 125 mmol/L (136-145)
[2021-12-13] MEDS ORDERED: ONDANSETRON 4 MG/2 ML VIAL ONE (03:23)
[2021-12-13] MEDS ORDERED: MORPHINE 2 MG/ML SYR ONE (03:23)
[2021-12-13 03:42] LABS: C-Reactive Protein < 2.90 mg/L (<3.00)
[2021-12-13 03:47] LABS: SARS-COV-2 RT PCR NEGATIVE (NEGATIVE)
[2021-12-13] MEDS ORDERED: NA CHLORIDE 0.9% 1,000 ML ONE (03:56)
[2021-12-13] MEDS ORDERED: Levofloxacin 750mg IV 750 MG/150 ML BAG IV ONE (03:56)
--- NOTE | 2021-12-13 04:17 | ER ---
Nurse's Notes [facility] Name: Irena Jones Age: 66 yrs Sex: Female : 1955 Arrival Date: 12/13/2021 Time: 01:39 Bed 4 Private MD: Diagnosis: Acute dyspnea. Acute exacerbation COPD. Hypoxia. Early pneumonia Presentation: 12/13 02:01 Chief complaint: Patient states: shortness of breath. pt was seen in ER yesterday and as6 was discharged home with the diagnosis of COPD and bronchitis. pt took her rx inhalers with no relief. Coronavirus screen: At this time, the client does not indicate any symptoms associated with coronavirus-19. Ebola Screen: No symptoms or risks identified at this time. Initial Sepsis Screen: Does the patient meet any 2 criteria? RR > 20 per min. HR > 90 bpm. Yes Does the patient have a suspected source of infection? No. Patient's initial sepsis screen is negative. Risk Assessment: Do you want to hurt yourself or someone else? Patient reports no desire to harm self or others. Onset of symptoms was December 12, 2021. 02:01 Method Of Arrival: Wheelchair as6 02:01 Acuity: MARCELLUS 3 as6 Triage Assessment: 03:13 General: Appears in no apparent distress. uncomfortable. Respiratory: Onset: The as6 symptoms/episode began/occurred yesterday, the patient has moderate shortness of breath. Historical: - Allergies: 02:04 PENICILLINS; as6 - Home Meds: 02:04 amlodipine 5 mg tab 1 tab once daily [Active]; aspirin 81 mg Oral chew once daily as6 [Active]; atorvastatin 40 mg Oral tab 1 tab once daily [Active]; venlafaxine 37.5 mg Oral tab [Active]; - PMHx: 02:04 Cerebrovascular accident; Chronic obstructive lung disease; Hypertension; Pneumonia; as6 - PSHx: 02:04 Appendectomy; hip replacement; tubal ligation; as6 - Immunization history:: Client reports receiving the 2nd dose of the Covid vaccine, Pneumococcal vaccine is up to date, Flu vaccine is up to date. - Social history:: Smoking status: Patient/guardian denies using tobacco, the patient reports quitting approximately 1 years ago. Screenin:12 Abuse screen: Denies threats or abuse. Denies injuries from another. Nutritional as6 screening: No deficits noted. Tuberculosis screening: No symptoms or risk factors identified. Fall Risk No fall in past 12 months (0 pts). Secondary diagnosis (15 points) CVA, IV access (20 points). Gait- Weak (10 pts.). Mental Status- Oriented to own ability (0 pts). Total Zapien Fall Scale indicates High Risk Score (45 or more points). Side Rails Up X 2 Frequent Obs/Assessments Occuring Family Present and informed to notify staff if the need to leave the bedside As available patient and family educated on Fall Prevention Program and Strategies. Assessment: 02:00 General: Appears uncomfortable, Behavior is calm, cooperative. Pain: Complains of pain as6 in back Quality of pain is described as aching. Neuro: Level of Consciousness is awake, alert, obeys commands, Oriented to person, place, time, situation. Cardiovascular: Rhythm is sinus tachycardia. Respiratory: Reports shortness of breath at rest Airway is patent Trachea midline Respiratory effort is even, labored, Respiratory pattern is regular, symmetrical, Breath sounds with wheezes bilaterally. Derm: Skin is intact, Skin is diaphoretic. Vital Signs: 02:01 BP 148 / 80; Pulse 110; Resp 25 S; Temp 98.5(O); Pulse Ox 94% on R/A; Weight 68.04 kg as6 (R); Height 5 ft. 5 in. (165.10 cm) (R); Pain 7/10; 03:11 BP 143 / 81; Pulse 123; Resp 24 S; Pulse Ox 97% on R/A; as6 03:30 BP 143 / 81; Pulse 116; Resp 24; Pulse Ox 98% on R/A; mk 05:59 BP 143 / 74; Pulse 111; Resp 19 S; Pulse Ox 96% on R/A; as6 02:01 Body Mass Index 24.96 (68.04 kg, 165.10 cm) as6 ED Course: 01:39 Patient arrived in ED. es 01:46 Eduard Chinchilla MD is Attending Physician. pkl 01:54 Ceasar Hays, LOI is Primary Nurse. as6 02:04 Triage completed. as6 02:05 Arm band placed on. as6 02:30 Inserted saline lock: 20 gauge in left wrist, using aseptic technique. Blood collected. as6 02:57 COVID-19/FLU A+B Sent. as6 02:57 Procalcitonin Sent. as 02:57 Lactate Sent. as6 02:57 Blood Culture Adult (2) Sent. as 02:57 COVID-19/FLU A+B (Document "Date of Onset" if Symptomatic) Sent. as6 02:57 D-Dimer Sent. as6 02:57 Basic Metabolic Panel Sent. as 02:58 CBC with Diff Sent. 02:58 LFT's Sent. as 02:58 Magnesium Sent. as6 02:58 NT PRO-BNP Sent. as 02:58 PT-INR Sent. as6 02:58 Troponin HS Sent. as6 03:13 Placed in gown. Bed in low position. Call light in reach. Side rails up X2. Adult w/ as6 patient. vehicle monitor technician on. Pulse ox on. NIBP on. Warm blanket given. PO fluids given. 03:19 XRAY Chest (1 view) In Process Unspecified. EDMS 04:13 Camilo Michaud DO is Hospitalizing Provider. pkl 04:28 Glenn Rojas MD is Hospitalizing Provider. la1 04:33 CT Chest Wo Con In Process Unspecified. EDMS 06:01 No provider procedures requiring assistance completed. Patient admitted, IV remains in as6 place. Administered Medications: 03:30 Drug: morphine 2 mg Route: IVP; Site: left forearm; mk 06:00 Follow up: Response: No adverse reaction; RASS: Alert and Calm (0) as6 03:30 Drug: Zofran (Ondansetron) 4 mg Route: IVP; Site: left forearm; mk 06:00 Follow up: Response: No adverse reaction as6 04:21 Drug: NS 0.9% 1000 ml Route: IV; Rate: 1000 ml; Site: left wrist; as6 06:27 Follow up: Response: No adverse reaction; IV Status: Completed infusion; IV Intake: as6 1000ml 04:21 Drug: LevaQUIN (levofloxacin) 750 mg Volume: 150 ml; Route: IVPB; Infused Over: 90 as6 mins; Site: left wrist; 06:00 Follow up: Response: No adverse reaction; IV Status: Completed infusion; IV Intake: as6 150ml 04:46 Drug: SOLU-Medrol (methylPrednisoLONE) 40 mg Route: IVP; Site: left wrist; as6 06:01 Follow up: Response: No adverse reaction as6 04:46 Drug: Xopenex (levalbuterol) 1.25 mg Route: Inhalation; as6 06:01 Follow up: Response: No adverse reaction as6 Intake: 06:00 IV: 150ml; Total: 150ml. as6 06:27 IV: 1000ml; Total: 1150ml. as6 Outcome: 04:16 Decision to Hospitalize by Provider. pkl 06:26 Admitted to Med/surg accompanied by nurse, family with patient, via wheelchair, room as6 220, with chart, Report called to [facility] 06:26 Condition: stable 06:27 Patient left the ED. as6 Signatures: Dispatcher [employer] EDMS Eduard Chinchilla MD MD pkl Kyra Simeon Lee, JR. JAVA DEVELOPER-C JR. JAVA DEVELOPER-Cla1 Ceasar Hays RN RN as6 Nicole Perez RN RN mk Corrections: (The following items were deleted from the chart) 03:02 02:57 C-REACTIVE PROTEIN+C.LAB.BRZ drawn and sent. as6 EDMS
--- NOTE | 2021-12-13 04:17 | EDPHYS ---
Physician Documentation [facility] Name: Irena Jones Age: 66 yrs Sex: Female : 1955 Arrival Date: 12/13/2021 Time: 01:39 Bed 4 Private MD: ED Physician Eduard Chinchilla HPI: 12/13 04:08 This 66 yrs old Female presents to ER via Wheelchair with complaints of Breathing pkl Difficulty, unable to sleep. 04:08 The patient has shortness of breath at rest. Onset: The symptoms/episode began/occurred pkl 3 day(s) ago, and became worse today. Associated signs and symptoms: Pertinent positives: productive cough. The patient has been recently seen at the [facility] Emergency Department, for similar complaints. Historical: - Allergies: 02:04 PENICILLINS; as6 - Home Meds: 02:04 amlodipine 5 mg tab 1 tab once daily [Active]; aspirin 81 mg Oral chew once daily as6 [Active]; atorvastatin 40 mg Oral tab 1 tab once daily [Active]; venlafaxine 37.5 mg Oral tab [Active]; - PMHx: 02:04 Cerebrovascular accident; Chronic obstructive lung disease; Hypertension; Pneumonia; as6 - PSHx: 02:04 Appendectomy; hip replacement; tubal ligation; as6 - Immunization history:: Client reports receiving the 2nd dose of the Covid vaccine, Pneumococcal vaccine is up to date, Flu vaccine is up to date. - Social history:: Smoking status: Patient/guardian denies using tobacco, the patient reports quitting approximately 1 years ago. ROS: 04:09 Eyes: Negative for injury, pain, redness, and discharge, ENT: Negative for injury, pkl pain, and discharge, Neck: Negative for injury, pain, and swelling, Cardiovascular: Negative for chest pain, palpitations, and edema. 04:09 Respiratory: Positive for cough, with rust-colored sputum, shortness of breath, at rest. wheezing. 04:09 Abdomen/GI: Negative for abdominal pain, nausea, vomiting, and diarrhea. 04:09 Back: Negative for acute changes. 04:09 : Negative for urinary symptoms. 04:09 MS/extremity: Negative for acute changes. 04:09 Skin: Negative for rash. 04:09 Neuro: Negative for altered mental status. Exam: 04:09 Head/Face: Normocephalic, atraumatic. Eyes: Pupils equal round and reactive to light, pkl extra-ocular motions intact. Lids and lashes normal. Conjunctiva and sclera are non-icteric and not injected. Cornea within normal limits. Periorbital areas with no swelling, redness, or edema. ENT: Nares patent. No nasal discharge, no septal abnormalities noted. Tympanic membranes are normal and external auditory canals are clear. Oropharynx with no redness, swelling, or masses, exudates, or evidence of obstruction, uvula midline. Mucous membranes moist. Neck: Trachea midline, no thyromegaly or masses palpated, and no cervical lymphadenopathy. Supple, full range of motion without nuchal rigidity, or vertebral point tenderness. No Meningismus. Chest/axilla: Normal chest wall appearance and motion. Nontender with no deformity. No lesions are appreciated. Cardiovascular: Regular rate and rhythm with a normal S1 and S2. No gallops, murmurs, or rubs. Normal PMI, no JVD. No pulse deficits. 04:09 Respiratory: mild respiratory distress is noted, Respirations: labored breathing, Breath sounds: rales, that are mild, are scattered, rhonchi, that are mild, are scattered. 04:09 Abdomen/GI: Bowel sounds: normal. 04:09 Back: Exam negative for acute changes. 04:09 : Exam negative for acute changes. 04:09 Musculoskeletal/extremity: Exam is negative for acute changes. 04:09 Skin: Exam negative for rash. 04:09 Neuro: Orientation: is normal, Mentation: is normal, Cranial nerves: grossly normal, Motor: is normal. Vital Signs: 02:01 BP 148 / 80; Pulse 110; Resp 25 S; Temp 98.5(O); Pulse Ox 94% on R/A; Weight 68.04 kg as6 (R); Height 5 ft. 5 in. (165.10 cm) (R); Pain 7/10; 03:11 BP 143 / 81; Pulse 123; Resp 24 S; Pulse Ox 97% on R/A; as6 03:30 BP 143 / 81; Pulse 116; Resp 24; Pulse Ox 98% on R/A; mk 05:59 BP 143 / 74; Pulse 111; Resp 19 S; Pulse Ox 96% on R/A; as6 02:01 Body Mass Index 24.96 (68.04 kg, 165.10 cm) as6 MDM: 01:46 Patient medically screened. pkl 04:12 Data reviewed: vital signs, nurses notes, lab test result(s), EKG, radiologic studies, pkl CT scan, plain films. ED course: Talked to Mejia PATEL ) For observation ( Dr. Michaud ). 12/13 02:18 Order name: Basic Metabolic Panel; Complete Time: 03:44 pkl 12/13 02:18 Order name: CBC with Diff; Complete Time: 06:36 pkl 12/13 02:18 Order name: LFT's; Complete Time: 03:44 pkl 12/13 02:18 Order name: Magnesium; Complete Time: 03:44 pkl 12/13 02:18 Order name: NT PRO-BNP; Complete Time: 03:44 pkl 12/13 02:18 Order name: PT-INR; Complete Time: 03:16 pkl 12/13 02:18 Order name: Troponin HS; Complete Time: 03:44 pkl 12/13 02:18 Order name: D-Dimer; Complete Time: 03:16 pkl 12/13 02:20 Order name: ABG; Complete Time: 02:56 pkl 12/13 02:26 Order name: COVID-19/FLU A+B (Document "Date of Onset" if Symptomatic) pkl 12/13 02:26 Order name: Blood Culture Adult (2) pkl 12/13 02:26 Order name: Lactate; Complete Time: 03:44 pkl 12/13 02:26 Order name: Procalcitonin; Complete Time: 06:36 pkl 12/13 02:18 Order name: XRAY Chest (1 view) pkl 12/13 02:18 Order name: EKG; Complete Time: 02:19 pkl 12/13 02:18 Order name: Cardiac monitoring; Complete Time: 02:27 pkl 12/13 02:18 Order name: EKG - Nurse/Tech; Complete Time: 02:27 pkl 12/13 02:18 Order name: IV Saline Lock; Complete Time: 02:57 pkl 12/13 02:27 Order name: COVID-19/FLU A+B; Complete Time: 03:47 EDMS 12/13 03:02 Order name: Manual Differential; Complete Time: 06:36 EDMS 12/13 03:03 Order name: C-Reactive Protein; Complete Time: 03:44 EDMS 12/13 03:47 Order name: CT Chest Wo Con pkl 12/13 04:34 Order name: Urine Dipstick-Ancillary; Complete Time: 06:36 EDMS 12/13 02:18 Order name: Labs collected and sent; Complete Time: 02:57 pkl 12/13 02:18 Order name: O2 Per Protocol; Complete Time: 02:27 pkl 12/13 02:18 Order name: O2 Sat Monitoring; Complete Time: 02:27 pkl 12/13 02:27 Order name: Urine Dipstick-Ancillary (obtain specimen); Complete Time: 04:36 pkl Administered Medications: 03:30 Drug: morphine 2 mg Route: IVP; Site: left forearm; mk 06:00 Follow up: Response: No adverse reaction; RASS: Alert and Calm (0) as6 03:30 Drug: Zofran (Ondansetron) 4 mg Route: IVP; Site: left forearm; mk 06:00 Follow up: Response: No adverse reaction as6 04:21 Drug: NS 0.9% 1000 ml Route: IV; Rate: 1000 ml; Site: left wrist; as6 06:27 Follow up: Response: No adverse reaction; IV Status: Completed infusion; IV Intake: as6 1000ml 04:21 Drug: LevaQUIN (levofloxacin) 750 mg Volume: 150 ml; Route: IVPB; Infused Over: 90 as6 mins; Site: left wrist; 06:00 Follow up: Response: No adverse reaction; IV Status: Completed infusion; IV Intake: as6 150ml 04:46 Drug: SOLU-Medrol (methylPrednisoLONE) 40 mg Route: IVP; Site: left wrist; as6 06:01 Follow up: Response: No adverse reaction as6 04:46 Drug: Xopenex (levalbuterol) 1.25 mg Route: Inhalation; as6 06:01 Follow up: Response: No adverse reaction as6 Disposition Summary: 12/13/21 04:16 Hospitalization Ordered Hospitalization Status: Observation pkl Location: Telemetry/MedSurg (observation) pkl Condition: Stable pkl Problem: new pkl Symptoms: are unchanged pkl Bed/Room Type: Standard pkl Provider: Glenn Rojas(12/13/21 04:28) la1 Room Assignment: 220(12/13/21 05:18) mw Diagnosis - Acute dyspnea. Acute exacerbation COPD. Hypoxia. Early pneumonia pkl Forms: - Medication Reconciliation Form pkl - SBAR form pkl Signatures: Dispatcher [employer] EDMS Renetta Miller RN RN mw Eduard Chinchilla MD MD pkl Mejia Chapman, CARD CLEANER-C CARD CLEANER-[facility] Ceasar Hays RN RN as6 Nicole Perez RN RN mk Corrections: (The following items were deleted from the chart) 03:02 02:27 C-REACTIVE PROTEIN+C.LAB.BRZ ordered. EDNV EDMS 04:28 04:16 Camilo Michaud pkl [facility] 05:18 04:16 pkl
[2021-12-13 04:35] LABS: Urine Blood 2+ (Negative); Urine Glucose Negative (Negative); Urine Protein Negative (Negative); Urine Specific Gravity 1.025 (1.005-1.030); Urine pH 5.5 (5.0-7.0)
[2021-12-13 04:36] LABS: Blood Morphology Comment NOT SEEN (NOT SEEN); Platelet Estimate ADEQ
[2021-12-13] MEDS ORDERED: METHYLPREDNISOLONE 40 MG INJ ONE (04:38)
[2021-12-13] MEDS ORDERED: LEVALBUTEROL 1.25 MG/3 ML NEB ONE (04:39)
--- NOTE | 2021-12-13 04:46 | P.HP ---
Certification for Inpatient Patient admitted to: Observation With expected LOS: >2 Midnights Patient will require the following post-hospital care: None Practitioner: I am a practitioner with admitting privileges, knowledge of patient current condition, hospital course, and medical plan of care. Services: Services provided to patient in accordance with Admission requirements found in Title 42 Section 412.3 of the Code of Federal Regulations <Mejia Chapman - Last Filed: 12/13/21 04:39> Patient History Date of Service: 12/13/21 Primary Care Provider: Dr. Perkins Reason for admission: Dyspnea, COPD exacerbation History of Present Illness: 66-year-old female with history of CVA with right-sided weakness, COPD, hypertension, pneumonia presents the emergency department for shortness of breath. Patient was evaluated approximate 24 hours ago for similar symptoms and discharged on Levaquin, steroids. Patient still having increasing shortness of breath at home, labs significant for white blood cell count which increased from within normal is to 26.4 sodium 125 chloride 92 creatinine 1.59 GFR 32 glucose 130 BNP 2835 COVID-negative chest x-ray pending radiology interpretation but appears to demonstrate diffuse COPD pattern. CT chest without contrast pending, patient had CT chest with contrast which was negative for any acute findings yesterday, also had echocardiogram report available for review at this time. ED provider wishes to admit for worsening dyspnea, COPD exacerbation with leukocytosis. - Past Medical/Surgical History Diabetic: No -: HTN -: COPD -: Previous stroke with right-sided weakness -: Appendectomy -: Left hip surgery -: Tubal ligation Psychosocial/ Personal History: Patient is retired, lives at home with her - Family History Family History: Reviewed- Non-Contributory - Social History Smoking Status: Former smoker (Quit last year) Alcohol use: No CD- Drugs: No Caffeine use: Yes <Mejia Chapman - Last Filed: 12/13/21 04:39> Date of Service: 12/13/21 <Glenn Rojas - Last Filed: 12/13/21 16:09> Allergies Penicillins Allergy (Intermediate, Verified 12/13/21 06:37) Rash Home Medications: Amlodipine [Norvasc*] 1 tab PO DAILY 12/13/21 Aspirin [Low Dose Aspirin EC] 1 tab PO DAILY 12/13/21 Atorvastatin Calcium [Lipitor] 1 tab PO BEDTIME 12/13/21 Venlafaxine HCl [Effexor XR] 1 tab PO DAILY 12/13/21 Review of Systems 10-point ROS is otherwise unremarkable Respiratory: Shortness of Breath, SOB with Excertion <Mejia Chapman - Last Filed: 12/13/21 04:39> Physical Examination - Physical Exam General: Alert, In no apparent distress, Oriented x3 HEENT: Atraumatic, PERRLA, Mucous membr. moist/pink, EOMI, Sclerae nonicteric Neck: Supple, 2+ carotid pulse no bruit, No LAD, Without JVD or thyroid abnormality Respiratory: Diminished, Expiratory wheezes Cardiovascular: Regular rate/rhythm, Normal S1 S2 Capillary refill: <2 Seconds Gastrointestinal: Normal bowel sounds, No tenderness Musculoskeletal: No tenderness Integumentary: No rashes Neurological: Normal gait, Normal speech, Normal tone, Normal affect, Abnormal strength (Right-sided weakness) - Studies Laboratory Data (last 24 hrs) 12/13/21 02:43: PT 11.1, INR 0.97 12/13/21 02:43: WBC 26.40 H* D, Hgb 10.3 L, Hct 30.3 L, Plt Count 298 12/13/21 02:43: Sodium 125 L, Potassium 4.7, BUN 16, Creatinine 1.59 H, Glucose 130 H, Magnesium 2.3 D, Total Bilirubin 0.4, AST 32, ALT 28, Alkaline Phosphatase 101 <Mejia Chapman - Last Filed: 12/13/21 04:39> - Studies Laboratory Data (last 24 hrs) 12/13/21 02:43: PT 11.1, INR 0.97 12/13/21 02:43: WBC 26.40 H* D, Hgb 10.3 L, Hct 30.3 L, Plt Count 298 12/13/21 02:43: Sodium 125 L, Potassium 4.7, BUN 16, Creatinine 1.59 H, Glucose 130 H, Magnesium 2.3 D, Total Bilirubin 0.4, AST 32, ALT 28, Alkaline Phosphatase 101 <Glenn Rojas - Last Filed: 12/13/21 16:09> Assessment and Plan - Plan Assessment: Dyspnea secondary to COPD with exacerbation with leukocytosis Mild hyponatremia/renal insufficiency Hypertension Hyperlipidemia History of CVA with right-sided deficits Plan: Dyspnea secondary to COPD with exacerbation with leukocytosis: Continue scheduled nebs, IV steroids, IV Levaquin. Leukocytosis possibly secondary to steroids given yesterday, CT chest without contrast pending to further evaluate for possible pneumonia. Patient had echocardiogram performed yesterday, patient was discharged afterwards anticipate it was within normal limits, will need to reach out with cardiology for review. Patient on room air at this time anticipate clinical improvement possible discharge tomorrow. Mild hyponatremia/renal insufficiency: Patient given bolus of 1 L in the emergency department, continue with gentle hydration throughout the day anticipate improvement. Consult nephrology for worsening. Hypertension: Continue amlodipine Hyperlipidemia: Continue atorvastatin History of CVA with right-sided deficits: Continue aspirin DVT PPX: Lovenox Code status: Full Discharge Plan: Home Plan to discharge in: 24 Hours - Advance Directives Does patient have a Living Will: No Does patient have a Durable POA for Healthcare: No - Code Status/Comfort Care Code Status Assessed: Yes (Full code) Critical Care: No Time Spent Managing Pts Care (In Minutes): 55 <Mejia Chapman - Last Filed: 12/13/21 04:39> - Plan Patient seen and examined on rounds this morning. Reports some slight improvement in respirations. No new symptoms Continue treatment as noted above. Pulmonology consulted Wean oxygen as tolerated, possible discharge tomorrow if continues to improve <Glenn Rojsa - Last Filed: 12/13/21 16:09>
[2021-12-13] MEDS ORDERED: ONDANSETRON 4 MG/2 ML VIAL IV PRN (05:59)
[2021-12-13] MEDS ORDERED: NA CHLORIDE 0.9% 1,000 ML IV SCH (05:59)
[2021-12-13 06:38] VITALS: O2SAT 96
[2021-12-13 06:40] VITALS: BMI 27.0
[2021-12-13] MEDS ORDERED: Levofloxacin 750mg IV 750 MG/150 ML BAG IV SCH (07:00)
--- NOTE | 2021-12-13 07:41 | RAD REPORT ---
EXAM DESCRIPTION: RAD - Chest Single View - 12/13/2021 3:18 am CLINICAL HISTORY: DYSPNEA COMPARISON: Chest Single View dated 12/12/2021; Chest Single View dated 11/19/2021; Chest Single View dated 03/22/2021; Chest Single View dated 09/08/2019 FINDINGS: Lines: None. Lungs: No evidence of edema or pneumonia. Pleural: No significant pleural effusions or pneumothorax. Cardiac: The heart size is within normal limits. Bones: No acute fractures. Nonaggressive appearing sclerotic lesion left proximal humerus. Other: IMPRESSION: No acute cardiopulmonary disease.
[2021-12-13] MEDS: IPRATROPIUM BROM 0.5MG/2.5ML NEB SCH ×3 (07:50→20:06)
[2021-12-13] MEDS: ALBUTEROL 2.5 MG/3 ML NEB SOL NEB SCH ×3 (07:50→20:06)
[2021-12-13] MEDS: AMLODIPINE 5 MG TAB PO SCH (08:33)
[2021-12-13] MEDS: VENLAFAXINE HCL XR 37.5MG CAP PO SCH ×2 (08:33→20:48)
[2021-12-13] MEDS: ASPIRIN EC 81 MG TAB PO SCH (08:33)
[2021-12-13] MEDS: ENOXAPARIN 40 MG/0.4 ML SQ SCH (08:34)
[2021-12-13] MEDS: ACETAMINOPHEN 500 MG TAB PO PRN ×2 (08:34→22:05)
[2021-12-13] MEDS ORDERED: METHYLPREDNISOLONE 40 MG INJ IV SCH (09:00)
[2021-12-13] MEDS: DULERA 200/5 (MOMETASONE/FORMOTEROL) INHALER IH SCH ×2 (09:34→20:48)
--- NOTE | 2021-12-13 11:30 | RAD REPORT ---
EXAM DESCRIPTION: CT - Thorax Wo Con - 12/13/2021 6:30 am CLINICAL HISTORY: SOB COMPARISON: 12/12/2021. TECHNIQUE: CT CHEST WITHOUT IV CONTRAST on 12/13/2021 3:47 AM TOOL COORDINATOR This exam was performed according to our departmental dose-optimization program, which includes autom ated exposure control, adjustment of the mA and/or kV according to patient size and/or use of iterati ve reconstruction technique. FINDINGS: The heart is normal in size. There is no pericardial effusion. Intrathoracic lymph nodes a re not enlarged. There is no pleural effusion, pleural thickening or pneumothorax. Central airways are patent. There i s mild upper lung centrilobular emphysema. There are no acute abnormalities within the limited images of the upper abdomen. There are no acute osseous findings. No suspicious bony lesions. IMPRESSION: Mild emphysema without pneumonia. Electronically signed by: Janes Fleming MD 12/13/2021 5:17 AM TOOL COORDINATOR Due to temporary technical issues with the PACS/Fluency reporting system, reports are being signed by the in house radiologists without review as a courtesy to insure prompt reporting. The interpreting radiologist is fully responsible for the content of the report.
--- NOTE | 2021-12-13 12:27 | P.CNS ---
Date of Consult: 12/13/21 Reason for Consult: Respiratory distress Primary Care Provider: Dr. Perkins Chief Complaint: Dyspnea, COPD exacerbation History of Present Illness: Patient is 66 years of age with a history of stroke metabolic syndrome admitted with acute onset of shortness of breath currently she was wheezing and able to sleep with a history of COPD has not had any problems for a long time still short of breath oxygen seems to help Patient's white count was elevated denies any pulmonary or complaints no abdominal pain Allergies Penicillins Allergy (Intermediate, Verified 12/13/21 06:37) Rash Home Medications: Amlodipine [Norvasc*] 1 tab PO DAILY 12/13/21 Aspirin [Low Dose Aspirin EC] 1 tab PO DAILY 12/13/21 Atorvastatin Calcium [Lipitor] 1 tab PO BEDTIME 12/13/21 Venlafaxine HCl [Effexor XR] 1 tab PO DAILY 12/13/21 - Past Medical/Surgical History Diabetic: No -: HTN -: COPD -: Previous stroke with right-sided weakness -: Appendectomy -: Left hip surgery -: Tubal ligation Psychosocial/ Personal History: Patient is retired, lives at home with her - Social History Smoking Status: Current every day smoker Alcohol use: No CD- Drugs: No Caffeine use: No Place of Residence: Home Review of Systems 10-point ROS is otherwise unremarkable General: Weakness Respiratory: Shortness of Breath Physical Examination Temp Pulse Resp BP Pulse Ox 97.5 F 113 H 24 H 130/59 L 94 12/13/21 08:00 12/13/21 08:33 12/13/21 08:00 12/13/21 08:33 12/13/21 08:00 General: Alert, Oriented x3 Neck: Supple Respiratory: Clear to auscultation bilaterally Cardiovascular: No edema, Regular rate/rhythm Gastrointestinal: Normal bowel sounds, Soft and benign Laboratory Data (last 24 hrs) 12/13/21 02:43: PT 11.1, INR 0.97 12/13/21 02:43: WBC 26.40 H* D, Hgb 10.3 L, Hct 30.3 L, Plt Count 298 12/13/21 02:43: Sodium 125 L, Potassium 4.7, BUN 16, Creatinine 1.59 H, Glucose 130 H, Magnesium 2.3 D, Total Bilirubin 0.4, AST 32, ALT 28, Alkaline Phosphatase 101 - Problems (1) Respiratory distress Current Visit: Yes Status: Acute Plan: Patient is 66 years of age admitted with acute onset of respiratory distress mild hypoxemia white count elevated mildly anemic she has chronic renal insufficiency CT chest is negative we will do a VQ scan and venous Dopplers although her D-dimer is negative patient was also mildly hyponatremic is not taking any diuretic high sensitive troponin is normal patient is on an inhaler changed to p.o. prednisone
--- NOTE | 2021-12-13 15:08 | RAD REPORT ---
EXAM DESCRIPTION: NM - Vent Perfusion VQ Scan - 12/13/2021 3:01 pm CLINICAL HISTORY: Shortness of breath COMPARISON: December 13, 2021 chest x-ray TECHNIQUE: 20.3 Mci [id number] was administered by inhalation. First breath, equilibrium, and washout images of the lungs obtained 6.6 millicuries Technetium-99 MAA was administered intravenously. Anterior, posterior, lateral and ob lique views of the lungs were taken. FINDINGS: The lungs demonstrate relatively homogeneous radiotracer activity on ventilation and perfu ann sequences. No mismatched segmental or lobar perfusion defects are seen. Patient has COPD IMPRESSION: Very low probability of a pulmonary embolus
--- NOTE | 2021-12-13 16:58 | RAD REPORT ---
EXAM DESCRIPTION: USExtrem Venous W Compress Bil12/13/2021 4:51 pm CLINICAL HISTORY: Leg pain COMPARISON: none FINDINGS: The common femoral, superficial femoral, popliteal and posterior tibial veins bilaterally are compressible and demonstrate augmentation. Doppler demonstrates good flow. IMPRESSION: No evidence of deep venous thrombosis involving either lower extremity.
[2021-12-13] MEDS ORDERED: NA CHLORIDE 0.9% 0 ML ONE (20:02)
[2021-12-13] MEDS: predniSONE 20 MG TAB PO SCH (20:47)
[2021-12-13] MEDS ORDERED: predniSONE 20 MG TAB PO SCH (21:00)
[2021-12-13] MEDS ORDERED: ATORVASTATIN 40 MG TAB PO SCH (21:00)
[2021-12-14] MEDS: IPRATROPIUM BROM 0.5MG/2.5ML NEB SCH ×2 (03:05→07:45)
[2021-12-14] MEDS: ALBUTEROL 2.5 MG/3 ML NEB SOL NEB SCH ×2 (03:05→07:45)
[2021-12-14 06:44] LABS: Bilirubin Total 0.2 mg/dL (0.2-1.0); Magnesium 2.4 mg/dL (1.8-2.4); Potassium 4.1 mmol/L (3.5-5.1); Protein, Total 5.9 g/dL (6.4-8.2); Thyroid Stimulating Hormone 0.258 uIU/mL (0.360-3.740)
[2021-12-14 07:10] LABS: Absolute Lymphocytes (CBC) 1.2 K/uL (0.7-4.9); Hematocrit 28.9 % (36.0-45.0); Lymphocytes % 5.5 % (15.3-44.8); MPV 9.1 fL (7.6-11.3); RBC Red Blood Cell Count 3.11 M/uL (3.86-4.86)
--- NOTE | 2021-12-14 07:28 | EKG ---
Test Date: 2021-12-13 Test Time: 02:10:08 Ordering Machine Operator: MEASUREMENT RESULTS: Intervals: Rate: 113 MD: 168 QRSD: 68 QT: 360 QTc: 493 [place]: P: 73 MD: 168 QRS: 30 T: 39 INTERPRETIVE STATEMENTS: Sinus tachycardia Low voltage QRS Borderline ECG Compared to ECG 12/12/2021 02:45:01 Sinus rhythm no longer present Electronically Signed On 12-14-21 07:26:11 ZIGZAG STITCHER by Xavi Davidson
[2021-12-14 08:02] LABS: Urine Appearance CLEAR (Clear); Urine Bilirubin NEGATIVE (Negative); Urine Blood NEGATIVE (Negative); Urine Color YELLOW (Yellow); Urine Glucose NEGATIVE (Negative); Urine Protein NEGATIVE (Negative); Urine Urobilinogen 0.2 mg/dL (0.2-1.0)
[2021-12-14 08:03] LABS: Urine Microscopic Reflex NO UMIC
[2021-12-14] MEDS: VENLAFAXINE HCL XR 37.5MG CAP PO SCH (09:00)
[2021-12-14] MEDS: ENOXAPARIN 40 MG/0.4 ML SQ SCH (09:00)
[2021-12-14] MEDS: ASPIRIN EC 81 MG TAB PO SCH (09:52)
[2021-12-14] MEDS: predniSONE 20 MG TAB PO SCH (09:53)
[2021-12-14] MEDS: AMLODIPINE 5 MG TAB PO SCH (09:53)
[2021-12-14] MEDS: DULERA 200/5 (MOMETASONE/FORMOTEROL) INHALER IH SCH (10:05)
[2021-12-14 12:39] VITALS: BP 115/62; TEMP 98.1
--- NOTE | 2021-12-14 19:53 | P.DS ---
Admission Date: 12/13/21 Discharge Date: 12/14/21 Primary Care Provider: Dr. Perkins Disposition: ROUTINE DISCHARGE Discharge Condition: GOOD Reason for Admission: Dyspnea, COPD exacerbation Consultations: Pulmonology - Dr. Avila Procedures: CT Chest (12/13/21): mild emphysema without pneumonia VQ scan: low probability for PE Venous U/S: no DVT noted in b/l lower extremities Problem List Dyspnea secondary to COPD with exacerbation with leukocytosis Mild hyponatremia/renal insufficiency Hypertension Hyperlipidemia History of CVA with right-sided deficits Brief History of Present Illness: 66-year-old female with history of CVA with right-sided weakness, COPD, hypertension, pneumonia presents the emergency department for shortness of breath. Patient was evaluated approximate 24 hours ago for similar symptoms and discharged on Levaquin, steroids. Patient still having increasing shortness of breath at home, labs significant for white blood cell count which increased from within normal is to 26.4 sodium 125 chloride 92 creatinine 1.59 GFR 32 glucose 130 BNP 2835 COVID-negative chest x-ray pending radiology interpretation but appears to demonstrate diffuse COPD pattern. CT chest without contrast pending, patient had CT chest with contrast which was negative for any acute findings yesterday, also had echocardiogram report available for review at this time. ED provider wishes to admit for worsening dyspnea, COPD exacerbation with leukocytosis. Hospital Course: Patient had improvement with steroid treatment. She was weaned off oxygen supplementation and reported feeling much better. Pulmonology was consulted and patient was deemed stable for discharge. Follow up with Pulmonology in ~1-2 weeks. Vital Signs/Physical Exam: Temp Pulse Resp BP Pulse Ox 98.1 F 96 H 20 115/62 93 12/14/21 12:00 12/14/21 12:00 12/14/21 12:00 12/14/21 12:00 12/14/21 12:00 General: Alert, In no apparent distress, Oriented x3 HEENT: Atraumatic, PERRLA, EOMI Respiratory: Expiratory wheezes (mild) Cardiovascular: No edema, Regular rate/rhythm Gastrointestinal: Soft and benign, Non-distended, No tenderness Musculoskeletal: No tenderness Integumentary: No rashes Neurological: Normal speech, Normal affect Laboratory Data at Discharge: WBC 21.20 K/uL (4.3-10.9) H* D 12/14/21 06:48 RBC 3.11 M/uL (3.86-4.86) L 12/14/21 06:48 Hgb 9.4 g/dL (12.0-15.0) L 12/14/21 06:48 Hct 28.9 % (36.0-45.0) L 12/14/21 06:48 MCV 93.0 fL (80-100) 12/14/21 06:48 MCH 30.2 pg (27.0-35.0) 12/14/21 06:48 MCHC 32.5 g/dL (32.0-36.0) 12/14/21 06:48 RDW 13.5 % (12.1-15.2) 12/14/21 06:48 Plt Count 261 K/uL (152-406) 12/14/21 06:48 MPV 9.1 fL (7.6-11.3) 12/14/21 06:48 Neutrophils % 90.9 % (41.7-73.7) H 12/14/21 06:48 Lymphocytes % 5.5 % (15.3-44.8) L 12/14/21 06:48 Monocytes % 3.6 % (3.3-12.3) 12/14/21 06:48 Eosinophils % 0.0 % (0-4.4) 12/14/21 06:48 Basophils % 0.0 % (0-1.3) 12/14/21 06:48 Absolute Neutrophils 19.3 K/uL (1.8-8.0) H 12/14/21 06:48 Segmented Neutrophils 87 % (40-80) H 12/13/21 02:43 Band Neutrophils 8 % (0-1) H 12/13/21 02:43 Absolute Lymphocytes 1.2 K/uL (0.7-4.9) 12/14/21 06:48 Lymphocytes 3 % (15-42) L 12/13/21 02:43 Monocytes 2 % (0-10) 12/13/21 02:43 Absolute Monocytes 0.8 K/uL (0.1-1.3) 12/14/21 06:48 Absolute Eosinophils 0.0 K/uL (0-0.5) 12/14/21 06:48 Absolute Basophils 0.0 K/uL (0-0.5) 12/14/21 06:48 Platelet Estimate Adeq 12/13/21 02:43 Morphology Comment Not seen (NOT SEEN) 12/13/21 02:43 PT 11.1 SECONDS (9.5-12.5) 12/13/21 02:43 INR 0.97 12/13/21 02:43 D-Dimer 455 FEUng/mL (<500) 12/13/21 02:43 pH 7.44 (7.35-7.45) 12/13/21 02:20 pCO2 34.7 mmHG (35-45) L 12/13/21 02:20 pO2 70.8 mmHG (75-100) L 12/13/21 02:20 HCO3 22.9 mmol/L (22-28) 12/13/21 02:20 Base Excess -0.7 mmol/L 12/13/21 02:20 Oxyhemoglobin 91.5 % (94-97) L 12/13/21 02:20 ABG O2 Sat (Measured) 93.5 % (92-98.5) 12/13/21 02:20 ABG Carboxyhemoglobin 1.4 % (0-1.5) 12/13/21 02:20 ABG Methemoglobin 0.7 % (0-1.5) 12/13/21 02:20 Other Total Hgb 10.3 g/dl (12-18) L 12/13/21 02:20 Inspired O2 21.0 % 12/13/21 02:20 Sodium 130 mmol/L (136-145) L 12/14/21 06:03 Potassium 4.1 mmol/L (3.5-5.1) 12/14/21 06:03 Chloride 99 mmol/L (98-107) 12/14/21 06:03 Carbon Dioxide 24 mmol/L (21-32) 12/14/21 06:03 BUN 18 mg/dL (7-18) 12/14/21 06:03 Creatinine 1.48 mg/dL (0.55-1.3) H 12/14/21 06:03 Estimated GFR 35 mL/min (=/>90) L 12/14/21 06:03 Glucose 145 mg/dL (74-106) H 12/14/21 06:03 Lactic Acid 1.6 mmol/L (0.4-2.0) 12/13/21 06:10 Calcium 8.6 mg/dL (8.5-10.1) 12/14/21 06:03 Magnesium 2.4 mg/dL (1.8-2.4) 12/14/21 06:03 Total Bilirubin 0.2 mg/dL (0.2-1.0) 12/14/21 06:03 Direct Bilirubin 0.2 mg/dL (0-0.2) 12/13/21 02:43 AST 74 U/L (15-37) H 12/14/21 06:03 ALT 38 U/L (12-78) 12/14/21 06:03 Alkaline Phosphatase 73 U/L (45-117) 12/14/21 06:03 Troponin I High Sens 30.10 pg/mL (<58.9) 12/13/21 02:43 C-Reactive Protein < 2.90 mg/L (<3.00) 12/13/21 02:43 C-Reactive Protein Cancelled 12/13/21 02:43 NT-Pro-B Natriuret Pep 2835 pg/mL (<125) H 12/13/21 02:43 Serum Total Protein 5.9 g/dL (6.4-8.2) L 12/14/21 06:03 Albumin 3.0 g/dL (3.4-5.0) L 12/14/21 06:03 Globulin 2.9 g/dL (2.3-3.5) 12/14/21 06:03 Albumin/Globulin Ratio 1.0 (1.1-1.8) L 12/14/21 06:03 Triglycerides 59 mg/dL (<150) 12/14/21 06:03 Cholesterol 99 mg/dL (<200) 12/14/21 06:03 LDL Cholesterol, Calc 26 (<130) 12/14/21 06:03 HDL Cholesterol 61 mg/dL (40-60) H 12/14/21 06:03 Cholesterol/HDL Ratio 1.62 12/14/21 06:03 Procalcitonin 0.06 ng/mL (<0.050) H 12/13/21 02:43 TSH 0.258 uIU/mL (0.360-3.740) L 12/14/21 06:03 Free T4 1.28 ng/dL (0.76-1.46) 12/14/21 06:03 Urine Color Yellow (Yellow) 12/13/21 19:15 Urine Appearance Clear (Clear) 12/13/21 19:15 Urine pH 6.0 (5.0-7.0) 12/13/21 19:15 Ur Specific [place] 1.010 (1.005-1.030) 12/13/21 19:15 Glucose (UA)(Auto) Negative (Negative) 12/13/21 19:15 Urine Ketones Negative (Negative) 12/13/21 19:15 Urine Blood Negative (Negative) 12/13/21 19:15 Urine Nitrite Negative (Negative) 12/13/21 19:15 Urine Bilirubin Negative (Negative) 12/13/21 19:15 Urine Urobilinogen 0.2 mg/dL (0.2-1.0) 12/13/21 19:15 Ur Leukocyte Esterase Negative (Negative) 12/13/21 19:15 Urine Total Protein Negative (Negative) 12/13/21 19:15 Influenza Type A RNA Negative (NEGATIVE) 12/13/21 02:49 Influenza Type B RNA Negative (NEGATIVE) 12/13/21 02:49 SARS-CoV-2 RNA (RT-PCR) Negative (NEGATIVE) 12/13/21 02:49 Home Medications: Amlodipine [Norvasc*] 1 tab PO DAILY 12/13/21 Aspirin [Low Dose Aspirin EC] 1 tab PO DAILY 12/13/21 Atorvastatin Calcium [Lipitor] 1 tab PO BEDTIME 12/13/21 Venlafaxine HCl [Effexor XR] 1 tab PO DAILY 12/13/21 Mometasone/Formoterol [Dulera 200 Mcg/5 Mcg Inhaler] 2 puff IH BID #1 inhaler 12/14/21 predniSONE [Prednisone*] 20 mg PO BID 5 Days #10 tab 12/14/21 New Medications: Mometasone/Formoterol [Dulera 200 Mcg/5 Mcg Inhaler] 2 puff IH BID #1 inhaler predniSONE [Prednisone*] 20 mg PO BID 5 Days #10 tab Physician Discharge Instructions: Your symptoms were most likely due to a COPD exacerbation. You were tested for an did not have any findings to suggest pneumonia or blood clot. You were evaluated by Pulmonology, Dr. Avila, and deemed stable for discharge home. Follow up with Dr. Avila in ~1-2 weeks. E-script sent to [facility] in [place] Followup: Rinku Avila MD [ACTIVE - CAN ADMIT] - OOTMURPHY [Primary Care Provider] - Time spent managing pt's care (in minutes): 45
[2021-12-15] MEDS ORDERED: Levofloxacin 750mg IV 750 MG/150 ML BAG IV SCH (08:00)
== END 2021-12-14 11:35 | disposition home or self-care (01) ==
LOC: ER 01:35 → ERHOLD 04:29 → 2ND 05:43
PROVIDERS: ADMIT Hospitalist; ATTEND Hospitalist
DX: J44.1 Chronic obstructive pulmonary disease with (acute) exacerbation (principal); R06.03 Acute respiratory distress; R09.02 Hypoxemia; J43.9 Emphysema, unspecified; E87.1 Hypo-osmolality and hyponatremia; N28.9 Disorder of kidney and ureter, unspecified; D72.829 Elevated white blood cell count, unspecified; I69.351 Hemiplegia and hemiparesis following cerebral infarction affecting right dominant side; I10 Essential (primary) hypertension; E78.5 Hyperlipidemia, unspecified; Z79.82 Long term (current) use of aspirin; Z88.0 Allergy status to penicillin; Z87.891 Personal history of nicotine dependence; Z20.822 Contact with and (suspected) exposure to COVID-19
CPT/HCPCS: 93005; 87040 ×2; 85025 ×2; 80048; 36415 ×2; 83735 ×2; 85610; 80061; 85379; 80076; 83605 ×2; 84443; 81003 ×2; 84484; 84439; 80053; 84145; 83880; 0240U; 86140; 71250; 71045; 93970; 94010 ×3; 82805; 78582; 99285; J1650; J2270; J7030 ×2; J2405; J2920 ×2; A9558; A9540; G0378; J7512; J7606